=== PATIENT | male | born 1955 | race Caucasian/White ===

== ENCOUNTER → 2017-10-07 10:24 | Outpatient (CLI) | payer BC, SELFPAY ==
[2017-10-07 11:02] LABS: Absolute Neutrophil Count 4.7 X10^3/uL (2.0-7.7); Basophil# 0.05 X10^3/uL; Basophil% 0.7 % (0-1); Eosinophil# 0.09 X10^3/uL; Eosinophils% 1.2 % (0-5); Hematocrit 39.1 % (40-54); Hemoglobin 13.5 g/dl (13.0-16.5); Lymphocyte % 22.2 % (19-41); Mean Corp Hgb Conc 34.5 g/gl (32-36); Mean Corpuscular Hgb 31.5 pg (27.0-32.0); Mean Corpuscular Volume 91.1 fL (80-94); Mean Platelet Vol. 9.6 fl (6.2-12.0); Monocyte# 0.76 X10^3/uL; Monocyte% 10.5 % (0-10); Neutrophil # 4.69 X10^3/uL (2.7-7.7); Platelet Count 292 K/mm3 (150-450); RBC Distribution Width CV 12.4 % (11.6-14.6); RBC Distribution Width SD 40.5 fl (35.1-43.9); Red Blood Count 4.29 M/mm3 (4.6-6.2); White Blood Count 7.2 K/mm3 (4.4-11.0)
[2017-10-07 11:19] LABS: ALB/GLOB Ratio 1.3 RATIO (0.9-2.4); AST(SGOT) 22 U/L (15-37); Alanine Aminotransfer ALT/SGPT 39 U/L (16-61); Albumin, Serum 4.1 g/dL (3.2-5.0); Alkaline Phosphatase 69 U/L (45-117); Anion Gap 9 (5-15); BUN 16 mg/dL (7-18); BUN/Creat Ratio 13.6 RATIO (10-20); Calcium,Total 8.8 mg/dL (8.5-10.1); Chloride 97 mmol/L (98-107); Cholesterol 176 mg/dL (200); Creatinine, Serum 1.18 mg/dL (0.70-1.30); EST Glomerular Filtration Rate 66 mL/min (>60); Est Glom Filt Rate - Afr Amer 80 mL/min (>60); Globulin 3.1 g/dL (2.2-4.2); Glucose 96 mg/dL (74-106); High Density Lipoprotein 55 mg/dL; PSA,Total - Annual Screen 0.88 ng/mL (0.00-4.00); Potassium 4.3 mmol/L (3.5-5.1); Protein, Total 7.2 g/dL (6.4-8.2); Sodium Level 134 mmol/L (136-145); Triglycerides 55 mg/dL; Very Low Density Lipoprotein 11 mg/dL (5-40)
[2017-10-08 10:25] LABS: Vitamin D,25 Hydroxy 41.9 ng/mL (19.95-100.01)
== END ==
PROVIDERS: Family Provider Family Medicine; PCP Family Medicine; Visit Provider Family Medicine
DX: Z00.00 Encounter for general adult medical examination without abnormal findings (principal); E55.9 Vitamin D deficiency, unspecified; E78.5 Hyperlipidemia, unspecified; I10 Essential (primary) hypertension; Z12.5 Encounter for screening for malignant neoplasm of prostate
CPT/HCPCS: 80053; 80061; 82306; 84153; 85025; G0103

== ENCOUNTER → 2017-11-12 07:44 | Outpatient (CLI) | payer BC, SELFPAY ==
[2017-11-12 08:23] LABS: Absolute Lymphocyte Count 1.77 X10^3/ul (0.83-4.51); Absolute Neutrophil Count 3.4 X10^3/uL (2.0-7.7); Basophil# 0.03 X10^3/uL; Basophil% 0.5 % (0-1); Eosinophil# 0.21 X10^3/uL; Eosinophils% 3.5 % (0-5); Hemoglobin 13.6 g/dl (13.0-16.5); Lymphocyte # 1.77 X10^3/ul (4.0); Lymphocyte % 29.4 % (19-41); Mean Corpuscular Hgb 30.7 pg (27.0-32.0); Mean Corpuscular Volume 90.3 fL (80-94); Mean Platelet Vol. 8.8 fl (6.2-12.0); Monocyte# 0.63 X10^3/uL; Monocyte% 10.4 % (0-10); Neutrophil # 3.35 X10^3/uL (2.7-7.7); Neutrophil % 55.5 % (47-70); Platelet Count 297 K/mm3 (150-450); RBC Distribution Width CV 12.5 % (11.6-14.6); RBC Distribution Width SD 41.1 fl (35.1-43.9); Red Blood Count 4.43 M/mm3 (4.6-6.2)
[2017-11-12 08:25] LABS: POSITIVE COUNT NO; POSITIVE DIFFERENTIAL NO; POSITIVE MORPHOLOGY NO
[2017-11-12 08:34] LABS: D-Dimer Quantitative (DVT/PE) 0.33 FEU/ug/m (0.27-0.49)
[2017-11-12 08:52] LABS: ALB/GLOB Ratio 1.1 RATIO (0.9-2.4); AST(SGOT) 30 U/L (15-37); Alanine Aminotransfer ALT/SGPT 40 U/L (16-61); Albumin, Serum 3.8 g/dL (3.2-5.0); Alkaline Phosphatase 70 U/L (45-117); Anion Gap 9 (5-15); BUN 10 mg/dL (7-18); BUN/Creat Ratio 9.6 RATIO (10-20); CPK Total, Creatine Kinase 222 U/L (39-308); Calcium,Total 8.8 mg/dL (8.5-10.1); Chloride 101 mmol/L (98-107); Creatinine, Serum 1.04 mg/dL (0.70-1.30); EST Glomerular Filtration Rate 77 mL/min (>60); Est Glom Filt Rate - Afr Amer 93 mL/min (>60); Globulin 3.4 g/dL (2.2-4.2); Glucose 107 mg/dL (74-106); Protein, Total 7.2 g/dL (6.4-8.2); Sodium Level 137 mmol/L (136-145)
[2017-11-12 10:38] LABS: BNP,B-Type NATRIURETIC PEPTIDE 19.8 pg/mL (0-100)
== END ==
PROVIDERS: Family Provider Family Medicine; PCP Family Medicine; Visit Provider Family Medicine
DX: M79.1 Myalgia (principal); R53.83 Other fatigue; R06.09 Other forms of dyspnea; R60.0 Localized edema
CPT/HCPCS: 36415; 80053; 82550; 83880; 84484; 85025; 85379

== ENCOUNTER → 2017-12-06 12:19 | Outpatient (CLI) | payer BC, SELFPAY ==
--- NOTE | 2017-12-06 12:25 | STEWCON_ITS ---
Reason For Study: Fatigue, Dyspnea On Exertion Stress Results Protocol: Kade Protocol Maximum Predicted HR: 157 bpm Target HR: 133 bpm% Max imum Predicted HR: 104 % DurationHeart Rate Stage (mm:ss) (bpm) BPCom ment Baseline 76 124/80 Definity 3 ML Diluted Given; No Chest Pain Kade Protocol Stage I 3:00 12 2 148/78No Chest Pain, Mild To Moderate Dyspnea Kade Protocol Stage II 3:00 16 4 160/72No Chest Pain; Moderate Dyspnea Recovery 106 128/8 2No Chest Pain, No Dyspnea Stress Duration: 6:00 mm:ss Maximum Stress HR: 164 bpmM ETS: 7 Baseline Echocardiogram Findings Stress Echo Wall motion Data Resting WMIntermediate WMStress WM Resting Wall Motion Wall Motion Stress No regional wall motion No regional wall motion abnormalities noted. abnormalities noted. Ejection Fraction 55 %. Ejection Fraction 65 %. Stress Results The patient exhibited dyspnea during exercise. Normal blood pressure response to exercise. Exercise was stopped due to fatigue. EKG Data Baseline ECG demonstrates normal sinus rhythm with a rate of 78 beats per minute. Normal intervals are noted. The resting blood pressure was 124/80. The baseline ECG demonstrates normal sinus rhythm with at rate of _ beats per minute. The patient exercised according to the regular Kade protocol for a total duration of 6 mnutes. The maximum heart rate attained was 164 beats per minute. This was 104% of maximum predicted heart rate. The patient exercised into stage 2 of the Kade protocol. During stress, there were no ST or T wave changes noted to suggest ischemia. At peak exercise, upsloping ST changes only were noted, which did not meet the criteria for ischemia. The peak blood pressure was 160/72. No arrhythmias noted. Interpretation Summary Normal resting LV systolic function. Nonstenotic valves. With stress, the LV size decreased and all segments augmented normally. The LVEF increased from 55% to 65%. Negative for ischemia at 104% of MPHR and at 7 METS. Normal stress echo with contrast at moderate workload. Ordering Physician: Jarrod Elizabeth Referring Physician: Lionel Holm MD Performed By: Lori Sanchez RDCS
== END ==
PROVIDERS: Family Provider Family Medicine; PCP Family Medicine; Visit Provider Family Medicine
DX: I10 Essential (primary) hypertension (principal); R06.09 Other forms of dyspnea; R53.83 Other fatigue
CPT/HCPCS: 93017; 93350; Q9957; A4216; C8928

== ENCOUNTER 2017-12-24 06:25 | Day surgery (SDC) | payer BC, SELFPAY ==
[2017-12-24] VITALS (7 sets, daily range): BP systolic 99–137; BP diastolic 64–85; PULSE 68–88; RESP 16; TEMP 36.2–36.8; O2SAT 92–95; BMI 30.8
--- NOTE | 2017-12-24 | COLBX_PTH ---
PATIENT: ROSSANA BERUMEN LOC: EN U#:[id number] AGE/SX: 62/M ROOM: RE12/24/[address]: Dr. Daryl Delgado MD : 1955 BED: DIS: 12/24/2017 SPEC #: [id number] RECD: 12/24/17 14:46 STATUS: HERBERT MARC #: [id number] JESSIE: 12/24/17 00:[address]: Daryl Delgado DEPT: SURGICAL PATHOLOGY RECD BY: Tone Loo ENTERED: 12/24/17 14:47 SP TYPE: COLON BX OTHR DR: Dr. Jarrod Elizabeth, Tissues: A - Ascending colon B - Descending colon Procedures: Surgery Specimen Level IV HEADER OPERATION: Colonoscopy PRE-OP DIAGNOSIS: Screening TISSUE SUBMITTED: A ? Ascending colon biopsy, mucosal fullness, B ? Descending colon polyp MICROSCOPIC DIAGNOSIS A. Ascending colon biopsy, mucosal fullness, biopsy: Fragment of colonic mucosa with a few pigment-laden macrophages suggestive of melanosis coli. B. Descending colon polyp, biopsy: Hyperplastic polyp. Mild increase of submucosal mature adipose tissue suggestive of submucosal lipoma. TANVIR:sonali 12/27/17 MICROSCOPIC DESCRIPTION Slides are reviewed. GROSS DESCRIPTION A - Received in fixative is one container labeled with the patient's name and designated ascending colon biopsy. The specimen consists of a piece of mcgrath soft tissue measuring 0.3 x 0.3 x 0.1 cm. The specimen is totally submitted in one cassette. B - Received in fixative is one container labeled with the patient's name and designated descending colon polyp. The specimen consists of one irregular fragment of light mcgrath soft tissue that measures 0.3 x 0.3 x 0.1 cm. The specimen is totally submitted in one cassette. / TANVIR:sonali 12/24/17 TC:5 CPT: 47460 x2
--- NOTE | 2017-12-24 07:38 | PCM.HP.STD ---
Problem List (1) Screening for intestinal cancer Status: Acute History of Present Illness Date of Admission: 12/24/17 The patient is a 62 year old M who presents today for a screening colonoscopy. His previous one was 12 years ago. He denies personal or family history of colon cancer. Just 10 days ago he had some hemorrhoidal discomfort bleeding. This is not typical for him. He otherwise enjoys good health. He denies abdominal pain. No unexpected weight loss. Past Medical History Allergies Tavxdak-Myx-Sxm Reductase Inhibitor Adverse Reaction (Verified 12/17/17 16:13) Pain in joints Home Medications: Ambulatory Orders Medication Instructions Recorded Atorvastatin Calcium [Lipitor] 20 mg PO QHS 09/18/13 Hydrochlorothiazide 25 mg PO DAILY 09/18/13 Irbesartan [Avapro] 300 mg PO DAILY 09/18/13 Aspirin E.C. [Ecotrin] 325 mg PO BIDCM #60 tablet 09/20/13 Cholecalciferol (Vitamin D3) 1,000 unit PO DAILY 12/17/17 [Vitamin D3] Etodolac [Lodine Xl] 400 mg PO BID 12/17/17 Ubidecarenone [Coq10] 50 mg PO DAILY 12/17/17 Smoking Status: Former smoker Review of Systems Constitutional: Denies: Weight Change Eyes: Denies: Blurred vision, Vision Change HEENT: Denies: Ear Pain, Eye Pain Cardiovascular: Denies: Chest Pain, Claudication Respiratory: Denies: Cough, Shortness of Breath Gastrointestinal: Denies: Hematemesis, Hematochezia Genitourinary: Denies: Dysuria, Hematuria Musculoskeletal: Denies: Leg Pain Skin: Denies: Jaundice Neurological: Denies: Confusion Psychiatric: Denies: Depression Endocrine: Denies: Change in Body Habitus Hematologic/ Lymphatic: Denies: Easy Bleeding VTE Information - Inpt Only VTE Present on Admission: No Patient Problems: Active and Suspected Problems Screening for intestinal cancer (Acute) - Physical Exam General: Alert, Oriented x3, Cooperative, No apparent distress HEENT: Atraumatic Oral: Moist Mucosa Neck: Supple Lungs: Clear to auscultation Cardiovascular: Regular rate, Regular Rhythm Abdomen: Bowel Sounds Present Extremities: No clubbing Skin: No rashes Musculoskeletal: No Tenderness to Palpation of Joints or Extremities Lymphatic: No Cervical, Supraclavicular, or Inguinal Adenopathy Neurological: Cranial nerves II-XII grossly intact Psych/Mental Status: Normal Affect Vital Signs Temp Pulse Resp BP 97.3 F L 88 16 137/85 H 12/24/17 07:14 12/24/17 07:14 12/24/17 07:14 12/24/17 07:14 Oxygen Delivery Method Room Air Weight: 227 lb 1.218 oz Body Mass Index (BMI) 30.8 Assessment/Plan Active and Suspected Problems Screening for intestinal cancer (Acute) Recommending a screening colonoscopy with possible biopsy or polypectomy is indicated. He is aware of the technique, benefits, risks, alternatives. He has had an opportunity to ask and have questions answered. Careful inspection of the anal area for his recent history of hemorrhoid problems will be pursued. Daryl Delgado M.D., F.A.C.S.
--- NOTE | 2017-12-24 08:22 | PCM.OPRPT ---
Problem List (1) Screening for intestinal cancer Status: Acute Report of Operation Date of Procedure: 12/24/17 Pre-Operative Diagnosis: Screening for intestinal cancer Post-Operative Diagnosis: Mucosal congestion of the ascending colon. Sessile polyp of the descending colon. Extensive descending and sigmoid diverticulosis. Tortuous elongated colon Surgery/Procedure Performed:: Colonoscopy with cold forcep biopsy and hot snare polypectomy Description of Surgical Findings:: Timeout and informed consent was obtained. The patient was taken to the endoscopy suite. He was placed in a left lateral decubitus position. Throughout the procedure in aliquots he received a total of 150 mg Demerol and 5 mg of Versed is intravenous sedation. As noted the patient complained of some hemorrhoidal problems. On the right lateral aspect of the anorectal area has a thrombosed conglomerative hemorrhoid. No active bleeding. 2+ smooth prostate. The flexible colonoscope inserted the rectum advanced to a very elongated tortuous sigmoid and descending colon. Tediously the scope was advanced to the transverse colon. The patient had to be placed supine and with transabdominal pressure the scope was gradually advanced to the cecum. The cecum ileocecal valve was just achieved. I felt that I got adequate visualization of the base of the cecum. Access was indeed difficult. The patient was placed back in a left lateral decubitus position the scope was carefully withdrawn there was some slight mucosal fullness on the medial aspect of the ascending colon just distal to the ileocecal valve. Photograph was obtained. Cold forcep was used to biopsy this area. The scope was then further withdrawn from the ascending transverse colon. And what was felt to be the proximal descending colon at 70 cm there is a sessile 8 mm diameter polyp. Photographs were obtained. Hot snare cautery was used to resect and retrieved. 2 hemostatic clips were placed. The scope was further withdrawn and there was extensive diverticulosis of the descending and sigmoid colon making visualization the mucosa challenging. The scope was withdrawn to the rectum retroflexed some internal hemorrhoids noted. Excess fluid and air was aspirated free the procedure was completed with the patient tolerating it well. Impression Mucosal fullness of the ascending colon pathology pending likely benign. Sessile polyp in the descending colon pathology pending Extensive sigmoid and descending diverticulosis with markedly elongated colon Thrombosed right lateral external hemorrhoid Patient will be notified of pathology results as they become available. He can seek ongoing surgical treatment of his thrombosed hemorrhoid pending his progress. Next colonoscopy recommended in 3 years pending pathology. Previous colonoscopies approximately 12 years prior. Next colonoscopy might be advantaged under monitored anesthesia care. Medications were given at 0743. Scope inserted 0746. Cecum reached at 0806. Procedure was completed at 0819. Cc: Dr. Glenn Delgado M.D., F.A.C.S. Type of Anesthesia:: IV Sedation
--- NOTE | 2017-12-24 09:25 | SUR.PHASEII ---
PT DISCUSSED POSSIBILITY OF TAKING CARE OF HEMRRHOID WITH DR. BASHIR IN THE RECOVERY ROOM. DR. KOROMA WOULD BE THE ONE TO TAKE CARE OF IT KRYSTEN IS LEAVING FOR VACATION. PT DISCUSSED OPTIONS WITH SIGNIFICANT OTHER AND HAS DECIDED THAT HE WILL WAIT AND SEE HOW HE FEELS OVER THE WEEKEND AND WILL CALL THE OFFICE NEXT WEEK, IF NEEDED. PT AGREES THAT HE IS WANTING TO GO HOME TODAY AND IS READY TO LEAVE NOW.
== END 2017-12-24 09:30 | disposition home or self-care (01) ==
LOC: EN 06:26 → AC 06:27
PROVIDERS: Family Provider Family Medicine; PCP Family Medicine; Visit Provider Surgery
PROC: 0DJD8ZZ Inspection of Lower Intestinal Tract, Via Natural or Artificial Opening Endoscopic (ICD-10-PCS; CPT 45378; principal; 2017-12-24 07:25)
DX: Z12.11 Encounter for screening for malignant neoplasm of colon (principal); K63.5 Polyp of colon; K57.30 Diverticulosis of large intestine without perforation or abscess without bleeding; K63.89 Other specified diseases of intestine; K64.5 Perianal venous thrombosis; Z79.82 Long term (current) use of aspirin; Z79.899 Other long term (current) drug therapy; Z87.891 Personal history of nicotine dependence
CPT/HCPCS: 45380; 88305; 99152; 99153; J7120

== ENCOUNTER → 2018-02-17 09:36 | Outpatient (CLI) | payer BC, SELFPAY ==
[2018-02-17 12:20] LABS: Color, Urine Yellow (Yellow); Glucose, Dipstick Normal (Normal); Ketone-Dipstick 5 mg/dl (Negative); Leukocyte Esterase-Dipstick 25 /ul (Negative); Nitrite-Dipstick Negative (Negative); Occult Blood-Urine Negative /ul (Negative); Protein-Dipstick 15 mg/dl (Negative); Urine Bilirubin Dipstick 6 mg/dL (Negative); Urine Clarity Clear (Clear); Urine Urobilinogen 1 mg/dl (Normal)
[2018-02-17 12:45] LABS: Absolute Lymphocyte Count 1.46 X10^3/ul (0.83-4.51); Absolute Neutrophil Count 3.1 X10^3/uL (2.0-7.7); Basophil# 0.05 X10^3/uL; Basophil% 0.9 % (0-1); Eosinophil# 0.11 X10^3/uL; Hemoglobin 14.6 g/dl (13.0-16.5); Lymphocyte # 1.46 X10^3/ul (4.0); Lymphocyte % 26.7 % (19-41); Mean Corp Hgb Conc 34.8 g/gl (32-36); Mean Corpuscular Hgb 31.9 pg (27.0-32.0); Mean Corpuscular Volume 91.7 fL (80-94); Mean Platelet Vol. 9.5 fl (6.2-12.0); Monocyte# 0.73 X10^3/uL; Monocyte% 13.3 % (0-10); Neutrophil # 3.08 X10^3/uL (2.7-7.7); Neutrophil % 56.4 % (47-70); Platelet Count 312 K/mm3 (150-450); RBC Distribution Width CV 12.4 % (11.6-14.6); RBC Distribution Width SD 41.1 fl (35.1-43.9); Red Blood Count 4.58 M/mm3 (4.6-6.2); White Blood Count 5.5 K/mm3 (4.4-11.0)
[2018-02-17 12:49] LABS: POSITIVE COUNT NO; POSITIVE DIFFERENTIAL NO; POSITIVE MORPHOLOGY NO
[2018-02-17 13:04] LABS: ALB/GLOB Ratio 1.2 RATIO (0.9-2.4); AST(SGOT) 31 U/L (15-37); Alanine Aminotransfer ALT/SGPT 40 U/L (16-61); Albumin, Serum 4.3 g/dL (3.2-5.0); Alkaline Phosphatase 75 U/L (45-117); Anion Gap 7 (5-15); BUN 14 mg/dL (7-18); Calcium,Total 9.1 mg/dL (8.5-10.1); Chloride 103 mmol/L (98-107); Creatinine, Serum 1.27 mg/dL (0.70-1.30); EST Glomerular Filtration Rate 61 mL/min (>60); Est Glom Filt Rate - Afr Amer 74 mL/min (>60); Globulin 3.6 g/dL (2.2-4.2); Glucose 98 mg/dL (74-106); Potassium 4.2 mmol/L (3.5-5.1); Protein, Total 7.9 g/dL (6.4-8.2); Sodium Level 139 mmol/L (136-145); Thyroid Stim Hormone (TSH) 0.99 uIU/mL (0.358-3.74)
[2018-02-18 14:34] LABS: ANTINUCLEAR ANTIBODIES DIRECT Negative (Negative)
== END ==
PROVIDERS: Family Provider Family Medicine; PCP Family Medicine; Visit Provider Family Medicine
DX: I10 Essential (primary) hypertension (principal); R60.0 Localized edema; R63.4 Abnormal weight loss
CPT/HCPCS: 36415; 80053; 81002; 84443; 85025; 85379; 86038; 86225; 86235

== ENCOUNTER → 2018-11-16 12:19 | Outpatient (CLI) | payer BC, SELFPAY ==
[2018-11-16 12:36] LABS: Bacteria 0 SEEN /hpf (None Seen); Mucous, Urine 0 SEEN /hpf (<or=2+); Red Blood Cells-Urine 0 SEEN /hpf (0-5); Squamous Epithelial Cells - UA 0 SEEN /hpf (0-5); White Blood Cells 0 SEEN /hpf (0-5)
[2018-11-16 13:36] LABS: Color, Urine Yellow (Yellow); Glucose, Dipstick Normal (Normal); Ketone-Dipstick Negative (Negative); Leukocyte Esterase-Dipstick Negative /ul (Negative); Nitrite-Dipstick Negative (Negative); Occult Blood-Urine Negative /ul (Negative); Protein-Dipstick Negative (Negative); Specific Gravity, Urine 1.015 (1.002-1.030); Urine Bilirubin Dipstick Negative (Negative); Urine Clarity Clear (Clear); Urine Urobilinogen Normal (Normal)
[2018-11-16 13:37] LABS: Hematocrit 40.6 % (40-54); Hemoglobin 13.6 g/dl (13.0-16.5); Mean Corp Hgb Conc 33.5 g/gl (32-36); Mean Corpuscular Hgb 30.9 pg (27.0-32.0); Mean Corpuscular Volume 92.3 fL (80-94); Mean Platelet Vol. 9.3 fl (6.2-12.0); Platelet Count 276 K/mm3 (150-450); RBC Distribution Width CV 12.4 % (11.6-14.6); White Blood Count 6.2 K/mm3 (4.4-11.0)
[2018-11-16 13:38] LABS: Scan Indicated on CBC? Y/N NO
[2018-11-16 14:00] LABS: Microalbumin,Random Urine < 5.0 mg/L (NO RANGE EST.)
[2018-11-16 14:02] LABS: Anion Gap 9 (5-15); BUN 13 mg/dL (7-18); BUN/Creat Ratio 12.1 RATIO (10-20); Chloride 101 mmol/L (98-107); Cholesterol 182 mg/dL (200); Creatinine, Serum 1.07 mg/dL (0.70-1.30); EST Glomerular Filtration Rate 74 mL/min (>60); Est Glom Filt Rate - Afr Amer 89 mL/min (>60); Glucose 106 mg/dL (74-106); High Density Lipoprotein 56 mg/dL; PSA,Total - Annual Screen 0.75 ng/mL (0.00-4.00); Potassium 3.7 mmol/L (3.5-5.1); Sodium Level 137 mmol/L (136-145); Triglycerides 51 mg/dL; Very Low Density Lipoprotein 10 mg/dL (5-40)
== END ==
LOC: LAB.FUTURE 08-02 06:11 → BFHLAB 09-19 14:06
PROVIDERS: Family Provider Family Medicine; PCP Family Medicine; Referring Provider Family Medicine; Visit Provider Family Medicine
DX: Z01.818 Encounter for other preprocedural examination (principal); I10 Essential (primary) hypertension; R80.9 Proteinuria, unspecified; Z12.5 Encounter for screening for malignant neoplasm of prostate
CPT/HCPCS: 36415; 80048; 80061; 81001; 82043; 82570; 84153; 85027; G0103

== ENCOUNTER → 2020-06-17 08:42 | Outpatient (CLI) | payer BC, SELFPAY ==
[2020-06-17 12:47] LABS: Absolute Lymphocyte Count 1.68 X10^3/uL (0.83-4.51); Absolute Neutrophil Count 3.5 X10^3/uL (2.0-7.7); Basophil# 0.06 X10^3/uL; Eosinophil# 0.08 X10^3/uL; Eosinophils% 1.3 % (0-5); Hematocrit 41.5 % (40-54); Lymphocyte # 1.68 X10^3/ul (4.0); Lymphocyte % 27.7 % (19-41); Mean Corp Hgb Conc 33.7 g/dL (32-36); Mean Corpuscular Hgb 31.8 pg (27.0-32.0); Mean Corpuscular Volume 94.3 fL (80-94); Mean Platelet Vol. 9.3 fl (6.2-12.0); Monocyte# 0.67 X10^3/uL; Monocyte% 11.1 % (0-10); NRBC Flagged by Analyzer 0 % (0-5); Neutrophil % 57.7 % (47-70); Platelet Count 351 K/mm3 (150-450); RBC Distribution Width CV 12.1 % (11.6-14.6); RBC Distribution Width SD 42.2 fl (35.1-43.9); White Blood Count 6.1 K/mm3 (4.4-11.0)
[2020-06-17 12:58] LABS: ALB/GLOB Ratio 1.1 RATIO (0.9-2.4); AST(SGOT) 32 U/L (15-37); Alanine Aminotransfer ALT/SGPT 44 U/L (16-61); Albumin, Serum 3.9 g/dL (3.2-5.0); Alkaline Phosphatase 72 U/L (45-117); Anion Gap 7 (5-15); BUN 13 mg/dL (7-18); BUN/Creat Ratio 11.5 RATIO (10-20); Calcium,Total 8.9 mg/dL (8.5-10.1); Chloride 104 mmol/L (98-107); Cholesterol 154 mg/dL (200); Creatinine, Serum 1.13 mg/dL (0.70-1.30); EST Glomerular Filtration Rate 69 mL/min (>60); Est Glom Filt Rate - Afr Amer 84 mL/min (>60); Globulin 3.5 g/dL (2.2-4.2); Glucose 88 mg/dL (74-106); High Density Lipoprotein 61 mg/dL; PSA,Total - Annual Screen 1.08 ng/mL (0.00-4.00); Potassium 3.9 mmol/L (3.5-5.1); Protein, Total 7.4 g/dL (6.4-8.2); Sodium Level 137 mmol/L (136-145); Thyroid Stim Hormone (TSH) 1.05 uIU/mL (0.358-3.74); Triglycerides 44 mg/dL; Very Low Density Lipoprotein 9 mg/dL (5-40)
[2020-06-17 13:06] LABS: Microalbumin,Random Urine 7.5 mg/L (NO RANGE EST.); Microalbumin:Creatinine Ratio 4.8 mg/g CRE (<30 mg/g CRE)
== END ==
PROVIDERS: Family Provider Family Medicine; PCP Family Medicine; Visit Provider Family Medicine
DX: I10 Essential (primary) hypertension (principal); R41.3 Other amnesia; E78.5 Hyperlipidemia, unspecified; Z12.5 Encounter for screening for malignant neoplasm of prostate; Z51.81 Encounter for therapeutic drug level monitoring
CPT/HCPCS: 36415; 80053; 80061; 82043; 82570; 84153; 84443; 85025; G0103

== ENCOUNTER 2021-02-06 17:12 | Observation (INO) | payer OTHER, SELFPAY ==
[2021-01-20 15:20] LABS: Hematocrit 40.5 % (40-54); Hemoglobin 13.9 g/dL (13.0-16.5); Mean Corp Hgb Conc 34.3 g/dL (32-36); Mean Corpuscular Hgb 31.4 pg (27.0-32.0); Mean Corpuscular Volume 91.4 fL (80-94); Mean Platelet Vol. 9.3 fl (6.2-12.0); Platelet Count 344 K/mm3 (150-450); RBC Distribution Width CV 11.9 % (11.6-14.6); RBC Distribution Width SD 39.8 fl (35.1-43.9); Red Blood Count 4.43 M/mm3 (4.6-6.2); White Blood Count 6.4 K/mm3 (4.4-11.0)
[2021-01-20 15:31] LABS: Prothrombin Time (Protime)PT. 12.7 SECONDS (11.7-14.9)
[2021-01-20 15:32] LABS: Partial Thromboplast Time 27.2 Seconds (24.1-36.2)
[2021-01-20 16:16] LABS: AST(SGOT) 29 U/L (15-37); Alanine Aminotransfer ALT/SGPT 46 U/L (16-61); Albumin, Serum 3.9 g/dL (3.2-5.0); Alkaline Phosphatase 76 U/L (45-117); Anion Gap 10 (5-15); BUN 16 mg/dL (7-18); BUN/Creat Ratio 13.3 RATIO (10-20); Calcium,Total 9.1 mg/dL (8.5-10.1); Chloride 103 mmol/L (98-107); EST Glomerular Filtration Rate 64 mL/min (>60); Est Glom Filt Rate - Afr Amer 78 mL/min (>60); Globulin 3.4 g/dL (2.2-4.2); Glucose 103 mg/dL (74-106); Potassium 3.9 mmol/L (3.5-5.1); Protein, Total 7.3 g/dL (6.4-8.2); Sodium Level 138 mmol/L (136-145)
[2021-01-20 19:06] LABS: Hemoglobin A1c 5.6 % (3.8-5.6)
--- NOTE | 2021-02-05 08:35 | RAD_ITS ---
HISTORY: PREOP EXAMINATION/TECHNIQUE: XR Chest 2 Views: 2 views COMPARISON: None FINDINGS: LINES/DEVICES: None. LUNGS: No pulmonary consolidation, mass, or edema. No pleural effusion or pneumothorax. MEDIASTINUM AND CARDIOVASCULAR STRUCTURES: Cardiac silhouette not enlarged. Central airways and mediastinal contour are unremarkable. BONES AND SOFT TISSUES: No acute bony abnormalities. RAD/Chest PA and Lateral IMPRESSION: No radiographic evidence of acute cardiopulmonary disease. at 1515 Reported and signed by: Liu Gibson MD Electronically Signed: Liu Gibson MD at 15:14 EDT Tel , Service support ,
[2021-02-06] VITALS (12 sets, daily range): BP systolic 120–146; BP diastolic 56–89; PULSE 65–105; RESP 16–18; TEMP 36.2–37; O2SAT 93–99; BMI 31.9
[2021-02-06] MEDS: Lactated Ringers 1,000 ML 100 ML IV ×4 (10:50→17:37)
--- NOTE | 2021-02-06 11:52 | PCM.OPRPT ---
Problems Associated Problem List Diagnoses (1) Lumbar disc disease with radiculopathy: (2) Lumbar spondylosis: Report of Operation Date of Procedure: 02/06/21 Pre-Operative Diagnosis: 1. Lumbar stenosis, L3-4, L4-5 with spondylosis. 2. Lumbar degenerative disc disease, L3-4, L4-5 Post-Operative Diagnosis: 1. Lumbar stenosis, L3-4, L4-5 with spondylosis. 2. Lumbar degenerative disc disease, L3-4, L4-5 Surgery/Procedure Performed:: 1. L3 bilateral laminectomies, foraminotomies, decompression of bilateral L3 nerve roots. 2. L4 bilateral laminectomies, foraminotomies, decompression of bilateral L4 nerve roots. Description of Surgical Findings:: STATEMENT OF MEDICAL NECESSITY: The patient is a 65-year-old male with intractable back and leg pain. Image studies confirm above diagnosis. He has failed conservative treatment to include: medicine, therapy, and injections. The patient opted for operative intervention, understanding the risks to include, but not limited to infection, bleeding, damage to nerves, arteries, and veins, possibility of spinal fluid leak, continued pain, need for further surgery, deep vein thrombosis, pulmonary embolism, heart attack, risk of stroke, or . DESCRIPTION OF PROCEDURE: The patient was identified in the preop holding area. The patient's identity and surgery site were confirmed by the patient, staff, anesthesia and the surgeon. The patient was wheeled to the operative suite and given the appropriate amount of sedation by anesthesia. He received preoperative antibiotics, Ancef. The patient was transferred to the [place] operating table in the prone position. All bony prominences were padded accordingly. The lumbar spine was prepped and draped in standard surgical fashion. Juan huggers were not turned on until drapes were placed and sealed with Ioban. A Midline incision was made and taken down to the lumbodorsal fascia. This was divided and subperiosteal dissection taken down to the level of facet joints at L3-4 and L4-5 bilaterally. Deep retractors were placed. I began with the Misonix bone scalpel, then a series of rongeurs and Kerrisons removing the spinous process and lamina at L3, and L4. Then, foraminotomies were performed decompressing bilateral the L3 and L4 nerve roots. The incision was then thoroughly irrigated. Tissel was placed over the dura as a hemostatic agent. Fascia was closed with #1 Vicryl, subcutaneous with 2-0 Vicryl, and skin with 2-0 nylon. Sterile dressing was applied with 4 x 4, ABD, and tape. Sponge, instrument, and needle counts were correct at the end of the case. The patient was extubated, taken to PACU without incident. CORTNEY Prabhakar was present for the entirety of the case and necessary for crucial parts of the case including retracting and closure. Surgeon: Juan Antonio Irving lance crewmember/mlrs sergeant: Jacquie Garcia Type of Anesthesia: General Specimen's removed: None Drains: None Estimated Blood Loss (mL): 100 Fluids Replaced: 1800 Complications None Admit VTE Documentation VTE Present on Admission: No VTE Mechan Device Prophylaxis: SCD's
--- NOTE | 2021-02-06 11:52 | PCM.PN.ORT ---
Subjective Subjective The patient was seen and examined postoperatively in the PACU. He is resting comfortably. His pain is well controlled. He has no complaints. Objective Data Objective Data Vital Signs: Vital Signs Temp Pulse Resp BP Pulse Ox 98.1 F 65 16 146/89 H 94 02/06/21 11:10 02/06/21 11:10 02/06/21 11:10 02/06/21 11:10 02/06/21 11:10 Oxygen Delivery Method Room Air Weight: 235 lb 10.786 oz Body Mass Index (BMI) 31.9 Lab / Micro Data Result Diagrams: 01/20/21 14:04 01/20/21 14:04 Micro: Microbiology 02/05/21 08:35 Interface Orders SARS-CoV-2 Antigen (Rapid) - Final Radiography Diagnostic Testing: Radiology Impression Chest X-Ray 02/05/21 08:35 IMPRESSION: No radiographic evidence of acute cardiopulmonary disease. at 1515 Reported and signed by: Liu Gibson MD Electronically Signed: Liu Gibson MD at 15:14 EDT Tel , Service support , Physical Exam Const alert, oriented x3 and no apparent distress General Appearance: cooperative and comfortable HEENT normocephalic and head/scalp atraumatic Eyes EOMs intact bilaterally and conjunctivae normal Neck full ROM General: normal visual inspection Chest inspection of chest normal Resp normal respiratory effort and normal air movement Cardio regular rate and regular rhythm Peripheral Pulses: pulses 2+ throughout GI soft to palpation, non-tender and non-distended Back/Spine Back/Spine Narrative: Dressing clean dry and intact Extremity normal to inspection, normal capillary refill, no clubbing, cyanosis or edema and no calf tenderness Peripheral Pulses: Yes pulses 2+ throughout Skin no rashes or lesions noted General Skin Exam: no breakdown Neuro oriented x3, CN's II-XII intact bilaterally, moves all extremities, no focal motor deficits, no sensory deficits noted and deep tendon reflexes 2+ bilaterally Motor Exam: strength 5/5 throughout and muscle tone normal throughout Assessment & Plan Assessment/Plan (1) Lumbar spondylosis: PLAN: Okay to admit to floor Telemetry for 24 hours Hospitalist consulted for medical management See orders (2) Lumbar disc disease with radiculopathy:
--- NOTE | 2021-02-06 11:52 | PCM.DC.SUM ---
Providers Date of Admission: 02/06/21 Primary Care Physician: Dr. Jarrod Elizabeth DO Reason For Visit: LAMINECTOMY L3-4 DECOMPRESSION Diagnosis Discharge Diagnosis (1) Lumbar spondylosis: Status: Acute Code(s): M47.816 - Spondylosis without myelopathy or radiculopathy, lumbar region (2) Lumbar disc disease with radiculopathy: Status: Acute Code(s): M51.16 - Intervertebral disc disorders with radiculopathy, lumbar region Medications at Discharge Home Medications atorvastatin 20 mg PO QHS 09/18/13 hydrochlorothiazide 25 mg PO DAILY 09/18/13 irbesartan [Avapro] 300 mg PO DAILY 09/18/13 cholecalciferol (vitamin D3) [Vitamin D3] 1,000 unit PO DAILY 12/17/17 etodolac 400 mg PO BID 12/17/17 aspirin [Aspir-81] 81 mg PO DAILY 01/20/21 Hospital Course Operations - (L3, L4 laminectomy decompression) Summary of Care Provided Minutes Spent on Discharge: 15 Hospital Course: The patient underwent an L3 and L4 laminectomy decompression on 02/06/2021. He was subsequently admitted to the medical surgical floor. The hospitalist was consulted for medical management. His pain was well controlled and he progressed well with physical therapy and mobilization. No significant medical issues were reported. He was discharged home on 02/07/2021 to follow-up with Dr. Irving in 3 weeks for suture removal. Physical Exam Const alert, oriented x3 and no apparent distress General Appearance: cooperative and comfortable Orientation / Consciousness: awake, oriented to person, oriented to place and oriented to time HEENT normocephalic and head/scalp atraumatic Eyes PERRL, EOMs intact bilaterally and conjunctivae normal Neck full ROM and supple Chest inspection of chest normal Resp normal respiratory effort and normal air movement Cardio regular rate and regular rhythm Peripheral Pulses: pulses 2+ throughout GI normal to inspection, nondistended, normoactive bowel sounds, soft to palpation, non-tender and non-distended Back/Spine normal to inspection Back/Spine Narrative: Dressing clean dry and intact Extremity normal to inspection, full ROM, normal capillary refill, no clubbing, cyanosis or edema and no calf tenderness Peripheral Pulses: Yes pulses 2+ throughout Skin no rashes or lesions noted General Skin Exam: no breakdown Neuro oriented x3, CN's II-XII intact bilaterally, moves all extremities, no focal motor deficits, no sensory deficits noted and deep tendon reflexes 2+ bilaterally Motor Exam: strength 5/5 throughout and muscle tone normal throughout Weight / BMI Weight Weight: 235 lb 10.786 oz Body Mass Index (BMI) 31.9 ABG / Lab / Microbiology Data Result Diagrams: 02/07/21 06:13 02/07/21 06:13 Microbiology: Microbiology 02/05/21 08:35 SARS-CoV-2 Antigen (Rapid) - Final Interface Orders Microbiology 02/05/21 08:35 Interface Orders SARS-CoV-2 Antigen (Rapid) - Final Radiography Diagnostic Testing: Radiology Impression Chest X-Ray 02/05/21 08:35 IMPRESSION: No radiographic evidence of acute cardiopulmonary disease. at 1515 Reported and signed by: Liu Gibson MD Electronically Signed: Liu Gibson MD at 15:14 EDT Tel , Service support , D/C Instructions Discharge Diet: No restrictions Discharge Activity: - (No repetitive bending, twisting, or lifting greater than 5 pounds) Weight Bearing Status: Weight bearing as tolerated Lifting Restricted to (Lbs): 5 Call your doctor if your incision/area has: Continuous Slow Oozing, Sudden Increased Bleeding, Increased Pain/ Swelling, Increased Redness, Foul Smelling Discharge and Swelling at the incision site Call your doctor if you observe: Fever of 101 or Higher, Coldness, Increased Pain, Numbness or Tingling, Change in Color, Inability to urinate, Inability to have a bowel movement, Using more than 1 pad per hour, Shortness of breath, Dizziness, Fainting spells, Swelling in the ankles, Chest pain, Prolonged hiccupping, Increased palpitations (irregular heartbeat), Calf discomfort and Uncontrolled pain Change Dressing in: 1 day Additional Dressing/Incision Instructions: Keep dressing clean dry and intact. Change dressing daily with iodine applied to incision. Cover incision with waterproof dressing to shower cover dry Additional Instructions: Covered incision with waterproof dressing to shower Please Follow Up With: Juan Antonio Irving DO When: 3 weeks for suture removal Meaningful Use Info Meaningful Use Diagnoses (Choose all that apply): None applicable Discharge Plan Admission Admit Date/Time: 02/06/21 17:12 Primary Reason for Your Visit: Lumbar stenosis, spondylosis Attending Provider: Amari Williamson Primary Care Provider: Jarrod Elizabeth Consulting Providers: Arun Christianson Discharge Orders/Prescriptions Prescriptions: No Action atorvastatin 20 MG tablet 20 mg PO QHS RF: 0 hydrochlorothiazide 25 MG tablet 25 mg PO DAILY RF: 0 irbesartan [Avapro] 300 MG tablet 300 mg PO DAILY RF: 0 etodolac 400 MG tablet extended release 24 hr 400 mg PO BID RF: 0 cholecalciferol (vitamin D3) [Vitamin D3] 1,000 UNIT capsule 1,000 unit PO DAILY RF: 0 aspirin [Aspir-81] 81 mg Tablet,Delayed Release (Dr/Ec) 81 mg PO DAILY RF: 0 Referrals / Follow Up: Jarrod Elizabeth DO [Primary Care Provider] -
[2021-02-06] MEDS: Cefazolin 2 GM in 0.9% Normal Saline 100 ML IV (11:55)
--- NOTE | 2021-02-06 12:08 | RAD_ITS ---
STUDY: X-RAY - LUMBAR SPINE REASON FOR EXAM: Male, 65 years old. LAMINECTOMY DECOMPRESSION, L3-4 TECHNIQUE: Single lateral of the lumbar spine. COMPARISON: None FINDINGS: Intraoperative localizing image demonstrates a surgical instrument and a clip at the L3-4 level. RAD/Spine 1 View Any Level IMPRESSION: Intraoperative image as noted of the lumbar spine. Electronically Signed: Vishnu Florence DO at 16:34 EDT Tel [phone], Service support ,
[2021-02-06] MEDS: Bupivacaine 0.25% 30 ML Vial (15:08)
[2021-02-06] MEDS: Morphine 4 MG/ML Syringe IV ×2 (17:57→19:32)
[2021-02-06] MEDS: Ensure Surgery 237 ML LIQUID PO (18:00)
--- NOTE | 2021-02-06 18:03 | PN.HOSP_ITS ---
Subjective Subjective This is a 65 years old male patient underwent elective bilateral L3 and L4 laminectomies, foraminotomies and decompression of bilateral L4 and L3 nerve roots and I was asked to see this patient for postoperative medical management. Currently, patient complained of back pain, moderate, around 5-6 out of 10 in severity, manageable. No other complaints. His vital signs are stable. Objective Data Objective Data Vital Signs: Vital Signs Temp Pulse Resp BP Pulse Ox 97.9 F 95 18 128/86 H 95 02/06/21 17:12 02/06/21 17:12 02/06/21 17:12 02/06/21 17:12 02/06/21 17:12 Oxygen Flow Rate (L/min) 2 Oxygen Delivery Method Nasal Cannula Weight: 235 lb 10.786 oz Body Mass Index (BMI) 31.9 Intake & Output: Intake and Output for Last 24 Hours 02/04/21 02/05/21 02/06/21 23:59 23:59 23:59 Intake Total 2009 Output Total 350 / 350 Balance 1660 / 1660 Lab / Micro Data Result Diagrams: 01/20/21 14:04 01/20/21 14:04 Micro: Microbiology 02/05/21 08:35 Interface Orders SARS-CoV-2 Antigen (Rapid) - Final Radiography Diagnostic Testing: Radiology Impression Spine X-Ray 02/06/21 12:08 IMPRESSION: Intraoperative image as noted of the lumbar spine. Electronically Signed: Vishnu Florence DO at 16:34 EDT Tel [phone], Service support , Physical Exam Const alert, oriented x3, no apparent distress and no limitations General Appearance: cooperative HEENT normocephalic, head/scalp atraumatic, external ears normal, external nose normal and moist oral mucous membranes Eyes PERRL, EOMs intact bilaterally, conjunctivae normal and no scleral icterus General Eye: normal appearance of both eyes Neck no lymphadenopathy, supple, no meningeal signs, no JVD and no carotid bruits Lymph Lymphatic: no lymphadenopathy noted Resp normal respiratory effort, normal air movement and clear to auscultation bilaterally Auscultation: Negative for crackles, rales, rhonchi or wheezes Cardio regular rate, regular rhythm, S1 normal heart sound, S2 normal heart sound, no murmurs and no JVD GI normal to inspection, nondistended, normoactive bowel sounds, soft to palpation, non-tender and non-distended; Negative for hepatosplenomegaly Extremity normal to inspection, full ROM and no clubbing, cyanosis or edema Skin no rashes or lesions noted, no wounds and no petechiae Neuro oriented x3, CN's II-XII intact bilaterally and moves all extremities Sensorium / Orientation: alert Speech: speech normal Motor Exam: strength 5/5 throughout Psych mental status grossly normal, affect normal and denies hallucinations Assessment & Plan Assessment/Plan (1) Status post lumbar laminectomy: (2) Alcohol abuse: (3) Hyperlipidemia: (4) HTN (hypertension): PLAN: This is a 65 years old male patient underwent elective bilateral lumbar laminectomies of L3-L4 and I am seeing this patient for postoperative medical management. #1 status post bilateral L3-L4 laminectomies, foraminotomies and bilateral L3-L4 nerve root decompression: This was done for L3-L4 and L4-L5 lumbar stenosis with spondylosis, postoperative day 0. Patient is on IV cefazolin for perioperative prophylaxis. He is on IV morphine and OxyIR as needed for pain. His vital signs are stable. Preoperative blood work reviewed, unremarkable. Surgery team on the case, managing. Plan to repeat CBC and BMP tomorrow morning. #2 hypertension: Blood pressure stable, continue HCTZ. #3 hyperlipidemia: Continue statins. #4 alcohol abuse: Patient drinks 4-5 beers daily, last drink was before yesterday. Denied history of alcohol withdrawal. Plan for thiamine and folic acid supplements, monitor for withdrawal symptoms. #5 DVT prophylaxis: SCDs. This note was generated with [employer] dictation software. It may contain incorrect words, spelling, and punctuation that were not noted in checking the note before signing. Charges/Coding Visit Charges Inpatient E&M: 91653 Subs Hosp L2
[2021-02-06] MEDS: Cefazolin 1 GM/50 ML BAG IV (20:01)
[2021-02-06] MEDS: Atorvastatin Calcium 20 MG Tablet PO (21:31)
[2021-02-06] MEDS: traMADol 50 MG Tablet PO (21:31)
[2021-02-07 03:39] VITALS: BP 170/96; PULSE 81; RESP 18; TEMP 36.9; O2SAT 97
[2021-02-07] MEDS: traMADol 50 MG Tablet PO ×2 (03:44→09:44)
[2021-02-07] MEDS: Cefazolin 1 GM/50 ML BAG IV (03:45)
[2021-02-07] MEDS: 0.9% Saline Lock 10 ML Syringe IV (03:46)
[2021-02-07 06:59] LABS: Absolute Lymphocyte Count 1.35 X10^3/uL (0.83-4.51); Absolute Neutrophil Count 10.6 X10^3/uL (2.0-7.7); Basophil# 0.02 X10^3/uL; Basophil% 0.1 % (0-1); Hematocrit 33.8 % (40-54); Hemoglobin 11.5 g/dL (13.0-16.5); Lymphocyte # 1.35 X10^3/ul (0.83-4.51); Lymphocyte % 9.9 % (19-41); Mean Corpuscular Hgb 31.5 pg (27.0-32.0); Mean Corpuscular Volume 92.6 fL (80-94); Mean Platelet Vol. 9.1 fl (6.2-12.0); Monocyte# 1.51 X10^3/uL; Monocyte% 11.1 % (0-10); NRBC Flagged by Analyzer 0 % (0-5); Neutrophil # 10.61 X10^3/uL (2.7-7.7); Neutrophil % 78.3 % (47-70); POSITIVE DIFFERENTIAL YES; Platelet Count 320 K/mm3 (150-450); RBC Distribution Width CV 12.1 % (11.6-14.6); RBC Distribution Width SD 40.9 fl (35.1-43.9); Red Blood Count 3.65 M/mm3 (4.6-6.2); White Blood Count 13.6 K/mm3 (4.4-11.0)
[2021-02-07 07:01] LABS: Differential Indicated SCAN CRITERIA MET
[2021-02-07 07:19] LABS: Differential Comment SCANNED
[2021-02-07 07:28] LABS: Anion Gap 6 (5-15); BUN 11 mg/dL (7-18); BUN/Creat Ratio 10.9 RATIO (10-20); Calcium,Total 8.9 mg/dL (8.5-10.1); Chloride 101 mmol/L (98-107); Creatinine, Serum 1.01 mg/dL (0.70-1.30); EST Glomerular Filtration Rate 78 mL/min (>60); Est Glom Filt Rate - Afr Amer 95 mL/min (>60); Estimated Creatinine Clearance 78.97 ml/min; Glucose 130 mg/dL (74-106); Potassium 4.2 mmol/L (3.5-5.1); Sodium Level 135 mmol/L (136-145)
[2021-02-07] MEDS: hydroCHLOROthiazide 25 MG Tablet PO (07:35)
[2021-02-07] MEDS: Thiamine Hydrochloride 100 MG Tablet PO (07:35)
[2021-02-07] MEDS: Folic Acid 1 MG Tablet PO (07:35)
[2021-02-07] MEDS: Ensure Surgery 237 ML LIQUID PO ×2 (07:37→11:47)
[2021-02-07 08:30] VITALS: BP 145/87; PULSE 80; RESP 16; TEMP 36.4; O2SAT 97
[2021-02-07] MEDS: Cholecalciferol (VIT D3) 25 MCG TABLET (1,000 UNITS) PO (09:43)
[2021-02-07] MEDS: Losartan Potassium 100 MG Tablet PO (09:43)
[2021-02-07 10:17] LABS: Pathologist Review Reviewed
--- NOTE | 2021-02-07 10:45 | CASEMGMT ---
GERARD MURRIETA Face to Face with patient for initial transition planning/care coordination assessment. RN LIT introduced self and role at [facility]. Patient sitting in chair, alert and oriented. Patient willing to participate in assessment and is able to answer all questions appropriately. Care providers, pharmacy, and demographics verified. Patient wishes to discharge home, denies need for home health at this time. Patient states he has no further needs or concerns at this time. CM to follow for discharge planning needs that may arise. PCP: Glenn Specialists: Suyapa, woo; Irving, spinal Preferred Pharmacy: [facility] Insurance: Health plan Prescription Benefit: yes Living Will/HPOA: yes, Seda Gonzalez LNOK: Living Arrangements: Patient lives with in a 2 story home with bed and bath on first floor. Patient states there is a flight of stairs to enter the home with railing or 3 steps in front with no railing. Patient states he was independent at home prior to surgery. Transportation: DME/HHC: Patient states he has cane and walker at home. No previous HHC or SNF. Disposition Plan: Patient to discharge home with family support and follow-up plans in place. Ivette MARQUEZ, RN, CM
--- NOTE | 2021-02-07 14:53 | NURSING ---
dressing changed per dr smith pt shown how to change dressing. stated she understood how to change dressing
== END 2021-02-07 14:51 | disposition home or self-care (01) ==
LOC: SDC 17:21 → MS3 17:21
PROVIDERS: Anesthesiology; Hospitalist; Admitting Provider Orthopaedic Surgery; PCP Family Medicine; Referring Provider Orthopaedic Surgery; Visit Provider Family Medicine
PROC: (CPT 63030; principal; 2021-02-06 11:30)
DX: M48.061 Spinal stenosis, lumbar region without neurogenic claudication (principal); M47.26 Other spondylosis with radiculopathy, lumbar region; M51.16 Intervertebral disc disorders with radiculopathy, lumbar region; I10 Essential (primary) hypertension; M46.96 Unspecified inflammatory spondylopathy, lumbar region; E66.9 Obesity, unspecified; E78.5 Hyperlipidemia, unspecified; F10.10 Alcohol abuse, uncomplicated; Z79.82 Long term (current) use of aspirin; Z79.899 Other long term (current) drug therapy; Z87.891 Personal history of nicotine dependence; Z68.31 Body mass index [BMI] 31.0-31.9, adult
CPT/HCPCS: 00670; 63047; 63048; 36415; 71046; 72020; 76000; 80048; 80076; 83036; 85007; 85025; 85027; 85610; 85730; 87426; 96361; 96365; 96366; 96375; 96376; 97162; 99218; 99251; C9803; J7120; A4216; G0378; G0379; G0463; J2405

== ENCOUNTER 2021-10-23 05:13 | Observation (INO) | payer MEDICARE, SELFPAY ==
[2021-10-23] VITALS (11 sets, daily range): BP systolic 123–167; BP diastolic 74–88; PULSE 54–73; RESP 15–18; TEMP 2.7–36.8; O2SAT 94–100; BMI 31.8; BMI 31.2
--- NOTE | 2021-10-23 05:50 | EKG12_ITS ---
Test Reason : DYSRHYTHMIA Blood Pressure : / mmHG Vent. Rate : 053 BPM Atrial Rate : 053 BPM P-R Int : 180 ms QRS Dur : 104 ms QT Int : 448 ms P-R-T Axes : 019 -08 032 degrees QTc Int : 420 ms Sinus bradycardia Otherwise normal ECG Confirmed by OSWALDO GORDON, TOSIN ([id number]), manager editorial ARIADNA BANSAL ([id number]) on 10/24/2021 8:38:21 AM Referred By: DEBORAH Confirmed By:TOSIN CHACON MD
--- NOTE | 2021-10-23 05:50 | RAD_ITS ---
EXAM: XR Chest, 2 Views CLINICAL INDICATION: 66 years old, Male; chest pain TECHNIQUE: Frontal and lateral views of the chest. This report was created using [employer] report generation technology. COMPARISON: XR Chest dated 02/05/2021 FINDINGS: Lungs and pleural spaces: Atelectasis in the lung bases. No pneumothorax. No effusion. Heart: Unremarkable. Cardiac silhouette not enlarged. Mediastinum: Central airways and mediastinal contour are unremarkable. Bones/joints: Unremarkable. Soft tissues: Unremarkable. RAD/Chest PA and Lateral IMPRESSION: No acute findings in the chest. Electronically Signed: David Mancilla MD at 6:19 EST ,
[2021-10-23] MEDS: Aspirin 325 MG Tablet PO (05:56)
[2021-10-23 06:02] LABS: Absolute Lymphocyte Count 1.37 X10^3/uL (0.83-4.51); Absolute Neutrophil Count 2.3 X10^3/uL (2.0-7.7); Basophil# 0.06 X10^3/uL; Basophil% 1.3 % (0-1); Eosinophil# 0.18 X10^3/uL; Hematocrit 38.8 % (40-54); Hemoglobin 13.8 g/dL (13.0-16.5); Lymphocyte # 1.37 X10^3/ul (0.83-4.51); Lymphocyte % 30.2 % (19-41); Mean Corp Hgb Conc 35.6 g/dL (32-36); Mean Corpuscular Hgb 32.3 pg (27.0-32.0); Mean Corpuscular Volume 90.9 fL (80-94); Mean Platelet Vol. 8.6 fl (6.2-12.0); Monocyte# 0.55 X10^3/uL; Monocyte% 12.1 % (0-10); NRBC Flagged by Analyzer 0 % (0-5); Neutrophil # 2.33 X10^3/uL (2.7-7.7); Neutrophil % 51.5 % (47-70); Platelet Count 297 K/mm3 (150-450); RBC Distribution Width SD 39.8 fl (35.1-43.9); Red Blood Count 4.27 M/mm3 (4.6-6.2); White Blood Count 4.5 K/mm3 (4.4-11.0)
[2021-10-23 06:28] LABS: Anion Gap 7 (5-15); BUN 16 mg/dL (7-18); BUN/Creat Ratio 16.1 RATIO (10-20); Calcium,Total 9.1 mg/dL (8.5-10.1); Chloride 101 mmol/L (98-107); Creatinine, Serum 0.99 mg/dL (0.70-1.30); EST Glomerular Filtration Rate 80 mL/min (>60); Est Glom Filt Rate - Afr Amer 97 mL/min (>60); Estimated Creatinine Clearance 79.47 ml/min; Glucose 109 mg/dL (74-106); Magnesium 2.1 mg/dL (1.6-2.6); Potassium 3.7 mmol/L (3.5-5.1); Sodium Level 136 mmol/L (136-145); Troponin-I HS 40 pg/mL (3.0-78.0)
--- NOTE | 2021-10-23 06:30 | EX.ED.DYSGE1 ---
HPI History of Present Illness Chief Complaint: Shortness of Breath Narrative Narrative: Patient is a 66-year-old male with a past medical history of high blood pressure and high cholesterol. He states that he woke around 2:30 in the morning because he could not sleep. He states he was up doing things at home such as being on the computer when he noticed he was having midsternal chest discomfort that he describes as a tightness that radiated out towards both arms and up into the neck. He states there was no nausea vomiting diaphoresis or shortness of breath associated with this. He states symptoms were present for approximately 2 hours and had concerned this could be cardiac in nature because he had a father and brother both with heart attacks roughly the same age. Secondary to this he presents for evaluation [facility] Medical History Alcohol use Arthritis Back pain Former smoker High cholesterol History of edema History of pain when walking History of steroid therapy History of stress test Hypertension Leg cramps Shortness of breath on exertion Wears glasses Home Medications atorvastatin 20 mg PO QHS 09/18/13 [History Last Taken Unknown] hydrochlorothiazide 25 mg PO DAILY 09/18/13 [History Last Taken 09/18/13 07:36 0530] irbesartan [Avapro] 300 mg PO DAILY 09/18/13 [History Last Taken 02/06/21] cholecalciferol (vitamin D3) [Vitamin D3] 1,000 unit PO DAILY 12/17/17 [History Last Taken Unknown] aspirin 81 mg PO DAILY 10/23/21 [History Last Taken Unknown] etodolac 400 mg PO BID 10/23/21 [History Last Taken Unknown] Allergy/AdvReac Type Severity Reaction Status Date / Time acetaminophen [From Percocet] AdvReac Upset Verified 10/23/21 05:14 Stomach oxycodone [From Percocet] AdvReac Upset Verified 10/23/21 05:14 Stomach Surgical History History of tonsillectomy Hx laparoscopic cholecystectomy Hx of arthroscopic knee surgery Hx of arthroscopic knee surgery Hx of colonoscopy Hx of repair of right rotator cuff Hx of total knee arthroplasty Social History Smoking Status: Former smoker ROS ROS ED Constitutional Constitutional ED: Denies chills or fever(s) ENT ENT ED: Denies sore throat Cardiovascular Cardiovascular: Reports chest pain; Denies palpitations or racing heartbeat Respiratory/Chest Respiratory/Chest: Denies cough or dyspnea Gastrointestinal Gastrointestinal: Denies abdominal pain, diarrhea, nausea or vomiting Genitourinary Genitourinary ED: Denies dysuria Musculoskeletal Musculoskeletal: Denies myalgias Integumentary Denies rash Neurologic Neurologic: Denies headache(s) Hematologic/Lymphatic Hematologic/Lymphatic: Denies easy bleeding or easy bruising EXAM Physical Exam Const Vital Signs: 10/23/21 05:17 10/23/21 05:20 10/23/21 06:32 Temperature 97.1 F L Temperature Source Temporal Pulse Rate 61 54 L Respiratory Rate 15 16 Respiratory Effort Normal Respiratory Depth Normal Respiratory Pattern Normal Blood Pressure 167/86 H 139/88 H Blood Pressure Mean 113 105 Pulse Ox 99 94 Oxygen Delivery Method Room Air Room Air Room Air Positive well nourished and well developed General Appearance ED: well developed HEENT Reports moist mucous membranes Eyes PERRL and EOMs intact bilaterally Neck supple Neck Narrative: No carotid bruit noted Chest Wall palpation of chest normal Chest Narrative: No bony deformity or crepitance no reproducible pain with palpation Resp normal respiratory effort and clear to auscultation bilaterally Cardio regular rhythm Rate: bradycardia and other Other Details: Radial pulses are +2-4 bilaterally are equal and symmetric GI normal to inspection, nondistended, normoactive bowel sounds, non-tender, non-distended and no masses GI Narrative: No voluntary guarding or rigidity no pulsatile mass Auscultation: normoactive bowel sounds Palpation: soft Extremity Extremity Narrative: +1 pitting edema to the bilateral lower extremities is equal and symmetric and chronic per patient. Negative Homans' sign bilaterally Neuro oriented x3 and CN's II-XII intact bilaterally Sensorium / Orientation: alert Motor Exam: strength 5/5 throughout Psych Psych Narrative: Patient has a depressed/flat affect Skin no rashes or lesions noted MDM MDM MDM Narrative Medical decision making narrative: Patient presented to the ER with spontaneous resolution of his symptoms and just mildly hypertensive. He does have risk factors for cardiac disease and the fact he is a male over the age of 40 with high blood pressure high cholesterol and a family history of heart disease in his father and brother. Secondary to the sudden nature of its onset and the fact that was tightness radiating to his arms and neck elected perform cardiac work-up. His chest x-ray reveals no acute findings or widening of his mediastinum. His blood work shows an initial troponin of 40 which is technically within normal limits. At this time as the patient is high risk for cardiovascular disease he will need a 2-hour delta troponin. Therefore patient will be signed out to the oncoming physician and as its been reported 1 to 2 years since last cardiac work-up he may need admitted at this time if his troponin continues to elevate Lab Data Attestation: I reviewed the patient's lab results. Labs: Laboratory Results - last 24 hr 10/23/21 10/23/21 05:55 05:55 WBC 4.5 RBC 4.27 L Hgb 13.8 Hct 38.8 L MCV 90.9 MCH 32.3 H MCHC 35.6 RDW Std Deviation 39.8 RDW Coeff of Rosales 12.0 Plt Count 297 MPV 8.6 Immature Gran % (Auto) 0.900 Neut % (Auto) 51.5 Lymph % (Auto) 30.2 [place] % (Auto) 12.1 H Eos % (Auto) 4.0 Baso % (Auto) 1.3 H Absolute Neuts (auto) 2.3 Absolute Lymphs (auto) 1.37 Nucleated RBC % 0 Sodium 136 Potassium 3.7 Chloride 101 Carbon Dioxide 28.0 Anion Gap 7 BUN 16 Creatinine 0.99 Estim Creat Clear Calc 79.47 Est GFR (MDRD) Af Amer 97 Est GFR (MDRD) Non-Af 80 BUN/Creatinine Ratio 16.1 Glucose 109 H Calcium 9.1 Magnesium 2.1 Troponin I High Sens 40 Radiography Diagnostic Testing: Clinical Impression(s) from Imaging Studies Chest X-Ray 10/23/21 05:50 IMPRESSION: No acute findings in the chest. Electronically Signed: David Mancilla MD at 6:19 EST , Discharge Plan Triage Chief Complaint: Shortness of Breath ED Provider: Tr Haddad Dx/Rx/DC Orders Prescriptions: No Action atorvastatin 20 MG tablet 20 mg PO QHS RF: 0 hydrochlorothiazide 25 MG tablet 25 mg PO DAILY RF: 0 irbesartan [Avapro] 300 MG tablet 300 mg PO DAILY RF: 0 cholecalciferol (vitamin D3) [Vitamin D3] 1,000 UNIT capsule 1,000 unit PO DAILY RF: 0 etodolac 400 mg tablet 400 mg PO BID RF: 0 aspirin 81 mg Capsule 81 mg PO DAILY RF: 0 Primary Care Provider: Jarrod Elizabeth
[2021-10-23 08:35] LABS: Troponin-I HS 56 pg/mL (3.0-78.0)
--- NOTE | 2021-10-23 08:55 | NURSING ---
DR KARLOS ALEGRE
--- NOTE | 2021-10-23 08:56 | NURSING ---
PCU OBS CP KARLOS
--- NOTE | 2021-10-23 09:00 | ECHOD_ITS ---
Reason For Study: CHEST PAIN Procedure This was a 2D Doppler, Color Flow transthoracic echocardiogram. Exam performed portable in patient room. Left Ventricle Normal left ventricle. The estimated ejection fraction is 55-60 %. Right Ventricle A calcified moderator band is seen in the right ventricle. Normal systolic function. The right ventricular wall motion is normal. Atria Normal left atrium. Normal right atrium. Mitral Valve There is mild mitral annular calcification. No mitral valve insufficiency. Tricuspid Valve Normal tricuspid valve. No tricuspid valve insufficiency. Aortic Valve Mild diffuse aortic valve calcification. Trivial aortic valve insufficiency. Pulmonic Valve The pulmonic valve is not well visualized. Great Vessels Normal aortic root. Pericardium/Pleural No pericardial effusion. MMode/2D Measurements & Calculations LVIDd: 4.7 cm IVSd: 1.2 cm Ao root diam: 3.4 cm LVIDs: 3.2 cm LVPWd: 1.2 cm RVDd: 4.2 cm FS: 31.8 % LAV(MOD-bp): 40.2 ml LVAd ap4: 34.4 cm2 SV(MOD-sp4): 70.0 ml LAV(MOD-bp) Indexed: 17.6 ml/m2 LVLd ap4: 8.3 cm LAV(MOD-sp2): 36.7 ml EDV(MOD-sp4): 114.8 ml LAV(MOD-sp4): 43.2 ml EDV(sp4-el): 120.5 ml LVAs ap4: 19.5 cm2 LVLs ap4: 7.1 cm ESV(MOD-sp4): 44.9 ml ESV(sp4-el): 45.2 ml EF(MOD-sp4): 60.9 % EF(sp4-el): 62.5 % SV(sp4-el): 75.3 ml LA A4 area: 17.3 cm2 LA dimension(2D): 3.8 cm RA A4 area: 14.0 cm2 Time Measurements MV dec time: 0.27 sec Doppler Measurements & Calculations MV E max gerhard: 73.2 cm/sec Lat Peak E' Gerhard: 13.1 cm/sec Med Peak E' Gerhard: 9.5 cm/sec MV A max gerhard: 95.0 cm/sec E/E' lat: 5.6 E/E' med: 7.7 MV E/A: 0.77 Ao V2 max: 135.9 cm/sec LV V1 max: 120.9 cm/sec PA V2 max: 77.4 cm/sec Ao max P.4 mmHg LV V1 max P.8 mmHg ECHO/Echo Complete Interpretation Summary The estimated ejection fraction is 55-60 %. Calcified moderator band/RV No prior study to compare Ordering Physician: Jag Graham Referring Physician: LAURA ORDAZ Performed By: Lori Sanchez RDCS
--- NOTE | 2021-10-23 10:05 | PCM.HP.STD ---
HPI - General General Date of Admission: 10/23/21 Date of Service: 10/23/21 Chief Complaint: Chest discomfort HPI Narrative ROSSANA BERUMEN, is a 66 M with past medical history is again for dyslipidemia and hypertension who presents chest discomfort. Patient symptoms started on the morning of his admission around 2 AM. He woke up not feeling well. He does describe his condition as feeling sick. He later did experience chest discomfort which he described as pressure located across the chest. He also did experience radiation to both armpits as well as his neck and his jaw. He also found that his blood pressure was elevated he subsequently elected to present to the emergency department. In the ED his initial set of cardiac enzymes and EKG came back negative. Subsequently admitted to monitored bed for further evaluation and management [facility] Medical History Alcohol use Arthritis Back pain Former smoker High cholesterol History of edema History of pain when walking History of steroid therapy History of stress test Hypertension Leg cramps Shortness of breath on exertion Wears glasses Home Medications atorvastatin 20 mg PO QHS 09/18/13 [History Last Taken Unknown] hydrochlorothiazide 25 mg PO DAILY 09/18/13 [History Last Taken 09/18/13 07:36 0530] irbesartan [Avapro] 300 mg PO DAILY 09/18/13 [History Last Taken 02/06/21] cholecalciferol (vitamin D3) [Vitamin D3] 1,000 unit PO DAILY 12/17/17 [History Last Taken Unknown] aspirin 81 mg PO DAILY 10/23/21 [History Last Taken Unknown] etodolac 400 mg PO BID 10/23/21 [History Last Taken Unknown] Allergy/AdvReac Type Severity Reaction Status Date / Time acetaminophen [From Percocet] AdvReac Upset Verified 10/23/21 05:14 Stomach oxycodone [From Percocet] AdvReac Upset Verified 10/23/21 05:14 Stomach Family History Brother CAD (coronary artery disease) Surgical History History of tonsillectomy Hx laparoscopic cholecystectomy Hx of arthroscopic knee surgery Hx of arthroscopic knee surgery Hx of colonoscopy Hx of repair of right rotator cuff Hx of total knee arthroplasty Social History Smoking Status: Former smoker ROS ROS Narrative GENERAL: denies fever, chills, night sweats, weight loss, anorexia HEENT: denies headache, sinus congestion, or drainage, dysphagia RESPIRATORY: denies cough, sputum production, shortness of breath, CARDIAC: denies , palpitations, orthopnea, PND GASTROINTESTINAL: denies abdominal pain, nausea, vomiting, melena, GENITOURINARY: denies dysuria, urgency, frequency, heamaturia EXTREMITY: denies swelling MUSCULOSKELETAL: denies current joint pain or tenderness NEUROLOGIC: denies focal numbness, weakness, tingling HEMATOLOGIC: denies easy bruising and/or hemorrhage INTEGUMENT: denies rashes PSYCHIATRIC: denies suicidal or homicidal ideation Vital Signs Vital Signs Vital Signs: 10/23/21 05:17 10/23/21 05:20 10/23/21 06:32 Temperature 97.1 F L Temperature Source Temporal Pulse Rate 61 54 L Respiratory Rate 15 16 Respiratory Effort Normal Respiratory Depth Normal Respiratory Pattern Normal Blood Pressure 167/86 H 139/88 H Blood Pressure Mean 113 105 Pulse Ox 99 94 Oxygen Delivery Method Room Air Room Air Room Air 10/23/21 07:23 10/23/21 08:57 Temperature 97.8 F Temperature Source Temporal Pulse Rate 57 L 57 L Respiratory Rate 18 16 Respiratory Effort Respiratory Depth Respiratory Pattern Blood Pressure 157/80 H 157/80 H Blood Pressure Mean 105 105 Pulse Ox 98 98 Oxygen Delivery Method Room Air Room Air Weight Weight: 104.598 kg Body Mass Index (BMI) 31.2 Physical Exam Narrative GENERAL: cooperative HEENT: Atraumatic; EYES; Anicteric, Normal Conjunctiva NECK; supple, normal thyroid, RESPIRATORY: Diminished to auscultation CARDIOVASCULAR: Regular S1 S2, GI: soft, normoactive bowel sounds, : No Renal angle tenderness; EXTREMITIES: No edema, no clubbing, MUSCULOSKELETAL: no muscle wasting NEURO: Awake; no lateralizing signs. SKIN: No Rash PSYCH; Flat affect Results Lab / Micro Data Result Diagrams: 10/23/21 05:55 10/23/21 05:55 Labs: Laboratory Results - last 24 hr 10/23/21 05:55: Sodium 136, Potassium 3.7, Chloride 101, Carbon Dioxide 28.0, Anion Gap 7, BUN 16, Creatinine 0.99, Estim Creat Clear Calc 79.47, Est GFR (MDRD) Af Amer 97, Est GFR (MDRD) Non-Af 80, BUN/Creatinine Ratio 16.1, Glucose 109 H, Calcium 9.1, Magnesium 2.1, Troponin I High Sens 40 10/23/21 05:55: WBC 4.5, RBC 4.27 L, Hgb 13.8, Hct 38.8 L, MCV 90.9, MCH 32.3 H, MCHC 35.6, RDW Std Deviation 39.8, RDW Coeff of Rosales 12.0, Plt Count 297, MPV 8.6, Immature Gran % (Auto) 0.900, Neut % (Auto) 51.5, Lymph % (Auto) 30.2, [place] % (Auto) 12.1 H, Eos % (Auto) 4.0, Baso % (Auto) 1.3 H, Absolute Neuts (auto) 2.3, Absolute Lymphs (auto) 1.37, Nucleated RBC % 0 10/23/21 08:00: Troponin I High Sens 56 Radiology Impression Chest X-Ray 10/23/21 05:50 IMPRESSION: No acute findings in the chest. Electronically Signed: David Mancilla MD at 6:19 EST , Assessment & Plan Assessment/Plan (1) Chest pain: (2) HTN (hypertension): (3) Hyperlipidemia: PLAN: Patient is a 66-year-old gentleman presenting with chest discomfort 1. Chest pain ?Patient has been admitted to monitored bed with plans to rule out SD with serial cardiac enzymes and EKG. Plan is for patient to undergo nuclear stress test once SD is ruled out. Patient is not a candidate for exercise stress test given his recent lumbar laminectomy (in 01/2021) 2. Hypertension - Blood pressure controlled, home medications continued with dose adjustment as needed 3. Dyslipidemia -Patient is on statin therapy, continued at home dose 4. Degenerative joint disease ?With history of lumbar laminectomy in 02/02/2021 5. Class I obesity ?With BMI of 31.3 ?Weight loss advised 6. DVT prophylaxis ?SC Lovenox Charges/Coding Visit Charges OBSV E&M: 55398 Initial observation care L3
--- NOTE | 2021-10-23 10:27 | EKG12_ITS ---
Test Reason : Blood Pressure : / mmHG Vent. Rate : 069 BPM Atrial Rate : 069 BPM P-R Int : 176 ms QRS Dur : 102 ms QT Int : 420 ms P-R-T Axes : 030 -08 039 degrees QTc Int : 450 ms Normal sinus rhythm Normal ECG When compared with ECG of 23-OCT-2021 06:03, MANUAL COMPARISON REQUIRED, DATA IS UNCONFIRMED Confirmed by OSWALDO GORDON, TOSIN ([id number]), make up editor ARIADNA BANSAL ([id number]) on 10/24/2021 12:00:05 PM Referred By: RAFAEL Confirmed By:TOSIN CHACON MD
[2021-10-23] MEDS: hydroCHLOROthiazide 25 MG Tablet PO (11:19)
[2021-10-23] MEDS: Losartan Potassium 100 MG Tablet PO (11:19)
[2021-10-23] MEDS: Etodolac 200 MG Capsule 400 MG PO ×2 (11:19→21:55)
[2021-10-23] MEDS: Aspirin 81 MG TAB.CHEW PO (11:19)
[2021-10-23] MEDS: Enoxaparin 40 MG/0.4 ML Syringe SC (11:20)
[2021-10-23 12:34] LABS: Troponin-I HS 65 pg/mL (3.0-78.0)
[2021-10-23] MEDS: Cholecalciferol (VIT D3) 25 MCG TABLET (1,000 UNITS) PO (14:05)
[2021-10-23] MEDS: Atorvastatin Calcium 20 MG Tablet PO (21:55)
[2021-10-24] VITALS (15 sets, daily range): BP systolic 122–176; BP diastolic 70–94; PULSE 55–81; RESP 16–18; TEMP 35.7–36.9; O2SAT 96–100
[2021-10-24 05:09] LABS: Absolute Lymphocyte Count 1.98 X10^3/uL (0.83-4.51); Absolute Neutrophil Count 2.7 X10^3/uL (2.0-7.7); Basophil# 0.05 X10^3/uL; Basophil% 0.9 % (0-1); Eosinophils% 3.5 % (0-5); Hematocrit 38.1 % (40-54); Hemoglobin 12.8 g/dL (13.0-16.5); Lymphocyte # 1.98 X10^3/ul (0.83-4.51); Lymphocyte % 34.7 % (19-41); Mean Corp Hgb Conc 33.6 g/dL (32-36); Mean Corpuscular Hgb 31.1 pg (27.0-32.0); Mean Corpuscular Volume 92.7 fL (80-94); Mean Platelet Vol. 9.1 fl (6.2-12.0); Monocyte# 0.71 X10^3/uL; Monocyte% 12.4 % (0-10); NRBC Flagged by Analyzer 0 % (0-5); Neutrophil # 2.73 X10^3/uL (2.7-7.7); Neutrophil % 47.8 % (47-70); Platelet Count 296 K/mm3 (150-450); RBC Distribution Width CV 12.1 % (11.6-14.6); RBC Distribution Width SD 41.4 fl (35.1-43.9); Red Blood Count 4.11 M/mm3 (4.6-6.2); White Blood Count 5.7 K/mm3 (4.4-11.0)
[2021-10-24 05:35] LABS: Anion Gap 5 (5-15); BUN 21 mg/dL (7-18); BUN/Creat Ratio 19.8 RATIO (10-20); Chloride 104 mmol/L (98-107); Creatinine, Serum 1.06 mg/dL (0.70-1.30); EST Glomerular Filtration Rate 74 mL/min (>60); Est Glom Filt Rate - Afr Amer 90 mL/min (>60); Estimated Creatinine Clearance 74.22 ml/min; Glucose 102 mg/dL (74-106); Sodium Level 137 mmol/L (136-145)
--- NOTE | 2021-10-24 06:00 | EKG12_ITS ---
Test Reason : AM EKG Blood Pressure : / mmHG Vent. Rate : 056 BPM Atrial Rate : 056 BPM P-R Int : 176 ms QRS Dur : 106 ms QT Int : 448 ms P-R-T Axes : 035 023 051 degrees QTc Int : 432 ms Sinus bradycardia Nonspecific ST abnormality Abnormal ECG When compared with ECG of 23-OCT-2021 10:27, MANUAL COMPARISON REQUIRED, DATA IS UNCONFIRMED Confirmed by OSWALDO GORDON, TOSIN ([id number]), editor dictionary ARIADNA BANSAL ([id number]) on 10/24/2021 9:22:27 AM Referred By: DR EVERETT Confirmed By:TOSIN CHACON MD
[2021-10-24] MEDS: Aspirin 81 MG TAB.CHEW PO (06:27)
[2021-10-24] MEDS: Losartan Potassium 100 MG Tablet PO (06:27)
--- NOTE | 2021-10-24 07:22 | PCM.PN.HOSP ---
Subjective Subjective Patient seen cardiac enzymes remain negative. Patient is scheduled to undergo nuclear stress test to rule out myocardial ischemia Objective Data Objective Data Vital Signs: Vital Signs Temp Pulse Resp BP Pulse Ox 96.3 F L 58 L 16 154/94 H 100 10/24/21 06:28 10/24/21 06:28 10/24/21 06:28 10/24/21 06:28 10/24/21 06:28 Oxygen Delivery Method Room Air Weight: 104.598 kg Body Mass Index (BMI) 31.2 Lab / Micro Data Result Diagrams: 10/24/21 03:44 10/24/21 03:44 Labs: Laboratory Results - last 24 hr 10/23/21 08:00: Troponin I High Sens 56 10/23/21 11:57: Troponin I High Sens 65 10/24/21 03:44: WBC 5.7, RBC 4.11 L, Hgb 12.8 L, Hct 38.1 L, MCV 92.7, MCH 31.1, MCHC 33.6 D, RDW Std Deviation 41.4, RDW Coeff of Rosales 12.1, Plt Count 296, MPV 9.1, Immature Gran % (Auto) 0.700, Neut % (Auto) 47.8, Lymph % (Auto) 34.7, [place] % (Auto) 12.4 H, Eos % (Auto) 3.5, Baso % (Auto) 0.9, Absolute Neuts (auto) 2.7, Absolute Lymphs (auto) 1.98, Nucleated RBC % 0 10/24/21 03:44: Sodium 137, Potassium 4.0, Chloride 104, Carbon Dioxide 28.0, Anion Gap 5, BUN 21 H, Creatinine 1.06, Estim Creat Clear Calc 74.22, Est GFR (MDRD) Af Amer 90, Est GFR (MDRD) Non-Af 74, BUN/Creatinine Ratio 19.8, Glucose 102, Calcium 9.0 Radiography Diagnostic Testing: Radiology Impression Echocardiogram 10/23/21 09:00 Interpretation Summary The estimated ejection fraction is 55-60 %. Calcified moderator band/RV No prior study to compare Ordering Physician: Jag Graham Referring Physician: LAURA ORDAZ Performed By: Lori Sanchez RDCS Physical Exam Narrative GENERAL: cooperative HEENT: Atraumatic; EYES; Anicteric, Normal Conjunctiva NECK; supple, normal thyroid, RESPIRATORY: Diminished to auscultation CARDIOVASCULAR: Regular S1 S2, GI: soft, normoactive bowel sounds, : No Renal angle tenderness; EXTREMITIES: No edema, no clubbing, MUSCULOSKELETAL: no muscle wasting NEURO: Awake; no lateralizing signs. SKIN: No Rash PSYCH; Flat affect Assessment & Plan Assessment/Plan (1) Chest pain: (2) HTN (hypertension): (3) Hyperlipidemia: PLAN: Patient is a 66-year-old gentleman presenting with chest discomfort 1. Chest pain ?Patient has been admitted to monitored bed with plans to rule out NH with serial cardiac enzymes and EKG. Plan is for patient to undergo nuclear stress test once NH is ruled out. Patient is not a candidate for exercise stress test given his recent lumbar laminectomy (in 01/2021) -10/24/2021 Patient seen cardiac enzymes remain negative. Patient is scheduled to undergo nuclear stress test to rule out myocardial ischemia 2. Hypertension - Blood pressure controlled, home medications continued with dose adjustment as needed 3. Dyslipidemia -Patient is on statin therapy, continued at home dose 4. Degenerative joint disease ?With history of lumbar laminectomy in 02/02/2021 5. Class I obesity ?With BMI of 31.3 ?Weight loss advised 6. DVT prophylaxis ?SC Lovenox Charges/Coding Visit Charges OBSV E&M: 34670 Subsequent observation care L2
--- NOTE | 2021-10-24 10:35 | CASEMGMT ---
GERARD CM in to complete SCHNEIDER form with patient. RN LIT explained SCHNEIDER form to patient, patient voiced understanding. Patient signed SCHNEIDER form and filed in chart. Patient provided with copy of signed SCHNEIDER form. Patient had no further questions or concerns.
--- NOTE | 2021-10-24 14:08 | STRESSREP ---
Stress Test Report Pharmacologic/Lexiscan sestamibi myocardial perfusion stress test. Indication; 66-year-old patient history of dyslipidemia, hypertension, presented the with symptoms of chest pain Symptoms described as pressure gradient across the chest with radiation to both arms. Patient noted his blood pressure was elevated Stress protocol: Resting EKG demonstrates. Normal sinus rhythm.. 0.4 mg of regadenoson was infused per usual protocol followed by rapid intravenous saline flush injection continuous EKG monitoring was performed. The maximum heart rate attained was 86 bpm which was 50% of maximum predicted heart . Stress EKG showed[, no significant ST?T change from the resting EKG, with maximum heart rate of 86 bpm. Arrhythmia: No arrhythmia demonstrated Symptoms: Patient had no symptoms of chest pain Blood pressure at rest 140/88 mmHg blood pressure at the end of stress: 140/88 mmHg Myocardial perfusion protocol. 14.6 mCi ]of Technetium 99m Sestamibi was injected at rest. 0.4 mg of Regadenoson was infused per usual protocol peak infusion 44.4 mCi ]of Technetium 99m sestamibi was injected. Stress images were obtained stress and rest images were reconstructed and compared in the short axis vertical and horizontal long axis. Gated images were also obtained Perfusion SPECT analysis: Moderate size reduced tracer uptake noted in the inferolateral region, at maximal stress in comparison to the resting images. Suggestive of inferolateral myocardial ischemia. Gated SPECT analysis: The gated ejection fraction is 66% Normal LV systolic function and normal left ventricular wall motion Conclusion: Abnormal Lexiscan sestamibi myocardial perfusion study With moderate infero- lateral reversible myocardial ischemia Preserved LV systolic function Recommendation; Correlate with the clinical presentation and discuss further need of evaluation by cardiac cath If clinically indicated Emilie Torres MD,FACC,[facility]
--- NOTE | 2021-10-24 15:09 | PCM.CONS.C ---
Assessment & Plan Assessment/Plan (1) Status post lumbar laminectomy: (2) Alcohol abuse: (3) Hyperlipidemia: (4) HTN (hypertension): (5) Chest pain: PLAN: This patient with risk factor for CAD with hypertension hyperlipidemia Also had a history of alcohol abuse Had significant family history of CAD Presented to the hospital with symptoms of chest pain Underwent evaluation with Lexiscan sestamibi which is abnormal Revealed inferolateral reversible myocardial ischemia with preserved systolic function Cardiac care plan recommendations; 1. Based on his clinical presentation with atypical angina and risk factors Recommended to proceed with a cardiac catheterization/right radial artery approach Also advised cessation of alcohol use 2. Cardiac care plan discussed with the patient, nursing staff and the medical team and will proceed with cardiac cath. HPI Consult Data Date of Consult: 10/24/21 HPI Narrative Reason for Consultation: Chest pain/unstable angina with AbnormalNuclearstress test HPI Narrative: ROSSANA BERUMEN, is a 66 M who [facility] Medical History (Updated 10/23/21 @ 10:[address] Jag Graham MD) Alcohol use Arthritis Back pain Former smoker High cholesterol History of edema History of pain when walking History of steroid therapy History of stress test Hypertension Leg cramps Shortness of breath on exertion Home Medications atorvastatin 20 mg PO QHS 09/18/13 [History Last Taken Unknown] hydrochlorothiazide 25 mg PO DAILY 09/18/13 [History Last Taken 09/18/13 07:36 0530] irbesartan [Avapro] 300 mg PO DAILY 09/18/13 [History Last Taken 02/06/21] cholecalciferol (vitamin D3) [Vitamin D3] 1,000 unit PO DAILY 12/17/17 [History Last Taken Unknown] aspirin 81 mg PO DAILY 10/23/21 [History Last Taken Unknown] etodolac 400 mg PO BID 10/23/21 [History Last Taken Unknown] Allergy/AdvReac Type Severity Reaction Status Date / Time acetaminophen [From Percocet] AdvReac Upset Verified 10/23/21 05:14 Stomach oxycodone [From Percocet] AdvReac Upset Verified 10/23/21 05:14 Stomach Family History Brother CAD (coronary artery disease) Surgical History (Updated 10/23/21 @ 10:09 by Mack Garcia) History of back surgery History of tonsillectomy Hx laparoscopic cholecystectomy Hx of arthroscopic knee surgery Hx of arthroscopic knee surgery Hx of colonoscopy Hx of repair of right rotator cuff Hx of total knee arthroplasty Social History Smoking Status: Former smoker Physical Exam Narrative Patient evaluated at bedside in PCU Along with the medical team and the nursing staff at bedside Alert orientated x3 Sitting out in a chair not in acute distress At rest no symptoms of chest pain Review of the cardiac telemetry normal sinus rhythm Cardiovascular examination S1-S2 is regular there is no murmur no Emery cholesterol murmur Chest examination is clear to auscultation bilateral Central nervous system exam no focal neurological deficit. Examination lower extremity no lower extremity edema Risk Stratification Risk Stratification Applicable: Yes Age >/= 65: Yes >/= 3 CAD Risk Factors (HTN, HLD, DM, family hx of CAD, or current smoker): Yes Aspirin Use in the Past 7 Days: No Severe Angina (>/= episodes in 24 hours): No EKG ST Changes >/= 0.5mm: No Positive Cardiac Marker: No MITCHELL Risk Stratification Score: 2 MITCHELL % Risk: 8% Risk Objective Data Vital Signs: Vital Signs Temp Pulse Resp BP Pulse Ox 97.7 F L 68 18 176/89 H 100 10/24/21 14:56 10/24/21 14:56 10/24/21 14:56 10/24/21 14:56 10/24/21 14:56 Oxygen Delivery Method Room Air Weight: 230 lb 9.6 oz Body Mass Index (BMI) 31.2 Lab / Micro Data Result Diagrams: 10/24/21 03:44 10/24/21 03:44 Labs: Laboratory Results - last 24 hr 10/24/21 03:44: WBC 5.7, RBC 4.11 L, Hgb 12.8 L, Hct 38.1 L, MCV 92.7, MCH 31.1, MCHC 33.6 D, RDW Std Deviation 41.4, RDW Coeff of Rosales 12.1, Plt Count 296, MPV 9.1, Immature Gran % (Auto) 0.700, Neut % (Auto) 47.8, Lymph % (Auto) 34.7, [place] % (Auto) 12.4 H, Eos % (Auto) 3.5, Baso % (Auto) 0.9, Absolute Neuts (auto) 2.7, Absolute Lymphs (auto) 1.98, Nucleated RBC % 0 10/24/21 03:44: Sodium 137, Potassium 4.0, Chloride 104, Carbon Dioxide 28.0, Anion Gap 5, BUN 21 H, Creatinine 1.06, Estim Creat Clear Calc 74.22, Est GFR (MDRD) Af Amer 90, Est GFR (MDRD) Non-Af 74, BUN/Creatinine Ratio 19.8, Glucose 102, Calcium 9.0 Cardiology Labs/Tests 10/24/21 03:44: WBC 5.7, RBC 4.11 L, Hgb 12.8 L, Hct 38.1 L, MCV 92.7, MCH 31.1, MCHC 33.6 D, Plt Count 296, MPV 9.1, Immature Gran % (Auto) 0.700, Neut % (Auto) 47.8, Lymph % (Auto) 34.7, [place] % (Auto) 12.4 H, Eos % (Auto) 3.5, Baso % (Auto) 0.9, Absolute Neuts (auto) 2.7, Nucleated RBC % 0 10/24/21 03:44: Sodium 137, Potassium 4.0, Chloride 104, Carbon Dioxide 28.0, Anion Gap 5, BUN 21 H, Creatinine 1.06, Est GFR (MDRD) Af Amer 90, Est GFR (MDRD) Non-Af 74, BUN/Creatinine Ratio 19.8, Glucose 102, Calcium 9.0 Rhythm: Normal sinus with no significant arrhythmia EKG: Normal sinus rhythm ECHO: Normal LV systolic function Stress Test: Normal nuclear stress test With inferolateral reversible myocardial ischemia, normal LV systolic function Radiography Diagnostic Testing: Radiology Impression Echocardiogram 10/23/21 09:00 Interpretation Summary The estimated ejection fraction is 55-60 %. Calcified moderator band/RV No prior study to compare Ordering Physician: Jag Graham Referring Physician: LAURA ORDAZ Performed By: Lori Sanchez RDCS
--- NOTE | 2021-10-24 15:23 | CASEMGMT ---
According to the [employer] website, the following are in-network tertiary facilities: [facility], [place], [place], [facility], [facility], [facility], and . Amanda GEE CM
--- NOTE | 2021-10-24 16:14 | PRO.PCM_ITS ---
Procedure Report Date of Procedure: 10/24/21 Procedure performed; 1 moderate sedation 2. Left heart catheterization 3. Selective left cholangiography 4. Selective right cholangiography 5. Placement of TR band to close the right radial artery arteriotomy site. Consent; Risk and benefits of the procedure explained in detail to the patient elected to proceed informed consent obtained. Preprocedure diagnosis 66-year-old patient presented to the emergency department here at [facility] complaining of symptoms of retrosternal chest pain with radiation to the back and to the jaw Typical of angina, patient had risk factor with history of hypertension dyslipidemia and significant family history of CAD No history of diabetes Also had history of alcohol use he drinks around 6 beers per day. Based on the clinical presentation he underwent evaluation by a series of cardiac biomarkers which were negative including sets of high sensitive troponin and underwent evaluation by Lexiscan sestamibi marker perfusion study which is abnormal With evidence of inferolateral reversible myocardial ischemia with ejection fraction of 66%. Diagnostic catheter used; 1. 6 Canadian Terumo sheath 2. 5 Canadian Powell catheter 3. 5 Canadian pigtail catheter 4. 5 Canadian JL 5 diagnostic catheter. Procedure in detail; Patient brought into the [employer] in fasting state, right radial artery area prepped and draped in the usual sterile fashion. Access obtained from the right radial artery with placement of 6 Canadian Terumo sheath. Under fluoroscopic guidance, will proceed with the Powell catheter advanced ascending aorta, noted patient has heavily calcified left and right coronary system on fluoroscopic view Using the 5 Canadian Powell catheter cannulated the right coronary artery multiple views of the RCA including CYMRO, FELIX cranial and caudal views. Catheter exchanged for 5 Canadian JL 5 diagnostic catheter advanced into [place] cannulated the left main multiple views of the left main including CYMRO, FELIX cranial and caudal views The catheter exchanged for 5 Canadian angle pigtail catheter advanced to the ascending aorta, across the aortic valve placed in the mid left ventricle. Measurement of LVEDP performed and a low ventriculogram obtained 30 degree FELIX projection. Following this all catheter removed hemostasis maintained with placement of TR band to right radial artery arteriotomy site with no complication in the [employer] [place] [employer] At the end of the procedure he does not have any symptoms of chest pain and there was no change in the traffic monitor specialist. Hemodynamic; 1. LVEDP measured around 17 mmHg. 2. LV systolic function preserved ejection fraction in the range of around 60% 3. No systolic gradient across aortic valve. 4. No mitral regurgitation noted. Coronary angiography; 1. Left coronary system is heavily calcified, left main Short with nonobstructive atherosclerosis of around 30% distally Left main coronary artery bifurcating into left anterior descending and the left circumflex. 2. The left anterior descending is heavily calcified from proximal to distal, proximal LAD had around 50% stenosis, mid LAD had diffuse 60 to 70% LAD reach all the way to the apex with abundant septal branches. Ist diagonal/D1 branching vessel with ostial and proximal 50-60% 3. Proximal left circumflex calcified 40-50% stenosis, 4. RCA large dominant entire RCA is calcified including proximal mid and distal RCA Ostial RCA of 30 to 40%, proximal RCA calcified 70% stenosis, with calcification noted in the mid to the distal RCA Proximal RPDA diffuse atherosclerosis of around 90%, mid posterolateral branch 60-70% Conclusion and recommendation; This patient has unstable angina presenting with symptoms of chest pain with risk factors as mentioned He has abnormal nuclear stress test in the RCA distribution inferolateral reversible myocardial ischemia with preserved LV function Has significantly abnormal cholangiography with heavily calcified left and right colon system and significant coronary atherosclerosis involving the right large dominant RCA. I discussed this case with the Dr. Holm evidently patient had stress echo 2 years ago however he does not follow-up with the cardiology [facility] [place] PCI of complex RCA with atherectomy and to be seen and evaluated by the bypass team as well for second opinion in regard to his LAD and diagonal lesions and the heavily calcified left coronary system. I discussed the cardiac care plan recommendation with the patient and the , in regard to the transfer and agree on the plan No complication in the [employer] Emilie Torres MD,FACC,[facility]
--- NOTE | 2021-10-24 16:47 | DS.PCM_ITS ---
Providers Date of Admission: 10/23/21 Primary Care Physician: Dr. Jarrod Elizabeth, Consultations 10/24/21 14:47 Consult: Cardiology Routine Consulting Provider: Emilie Torres Reason for Consult: positive stress EMERGENT Consult: No MD Notified: Yes Date Notified: 10/24/21 Time Notified: 14:47 Method of Notification: Verbal Method of Consult:: In-Person Reason For Visit: CHEST PAIN Diagnosis Discharge Diagnosis (1) Status post lumbar laminectomy: Status: Acute Code(s): Z98.890 - Other specified postprocedural states (2) Alcohol abuse: Status: Chronic Code(s): F10.10 - Alcohol abuse, uncomplicated (3) Hyperlipidemia: Status: Chronic Code(s): E78.5 - Hyperlipidemia, unspecified (4) HTN (hypertension): Status: Chronic Code(s): I10 - Essential (primary) hypertension (5) Chest pain: Status: Acute Code(s): R07.9 - Chest pain, unspecified Medications at Discharge Home Medications hydrochlorothiazide 25 mg PO DAILY 09/18/13 irbesartan [Avapro] 300 mg PO DAILY 09/18/13 cholecalciferol (vitamin D3) [Vitamin D3] 1,000 unit PO DAILY 12/17/17 aspirin 81 mg PO DAILY 10/23/21 atorvastatin 80 mg PO QHS #0 tab 10/24/21 Hospital Course Procedures Cardiac catheterization Summary of Care Provided Minutes Spent on Discharge: 45 Hospital Course: . Chest pain ?Patient has been admitted to monitored bed with plans to rule out WI with serial cardiac enzymes and EKG. Plan is for patient to undergo nuclear stress test once WI is ruled out. Patient is not a candidate for exercise stress test given his recent lumbar laminectomy (in 01/2021) -10/24/2021 Patient seen cardiac enzymes remain negative. Patient is scheduled to undergo nuclear stress test to rule out myocardial ischemia -Patient nuclear stress test came back positive for stress-induced ischemia cardiology subsequently consulted patient underwent left heart catheterization. Findings and recommendation as below Hemodynamic; 1. LVEDP measured around 17 mmHg. 2. LV systolic function preserved ejection fraction in the range of around 60% 3. No systolic gradient across aortic valve. 4. No mitral regurgitation noted. Coronary angiography; 1. Left coronary system is heavily calcified, left main Short with nonobstructive atherosclerosis of around 30% distally Left main coronary artery bifurcating into left anterior descending and the left circumflex. 2. The left anterior descending is heavily calcified from proximal to distal, proximal LAD had around 50% stenosis, mid LAD had diffuse 60 to 70% LAD reach all the way to the apex with abundant septal branches. Ist diagonal/D1 branching vessel with ostial and proximal 50-60% 3. Proximal left circumflex calcified 40-50% stenosis, 4. RCA large dominant entire RCA is calcified including proximal mid and distal RCA Ostial RCA of 30 to 40%, proximal RCA calcified 70% stenosis, with calcification noted in the mid to the distal RCA Proximal RPDA diffuse atherosclerosis of around 90%, mid posterolateral branch 60-70% Conclusion and recommendation; This patient has unstable angina presenting with symptoms of chest pain with risk factors as mentioned He has abnormal nuclear stress test in the RCA distribution inferolateral reversible myocardial ischemia with preserved LV function Has significantly abnormal cholangiography with heavily calcified left and right colon system and significant coronary atherosclerosis involving the right large dominant RCA. I discussed this case with the Dr. Holm evidently patient had stress echo 2 years ago however he does not follow-up with the cardiology [facility] to discuss PCI of complex RCA with atherectomy and to be seen and evaluated by the bypass team as well for second opinion in regard to his LAD and diagonal lesions and the heavily calcified left coronary system. I discussed the cardiac care plan recommendation with the patient and the , in regard to the transfer and agree on the plan No complication in the [employer] PER Emilie Torres MD,[facility] 2. Hypertension - Blood pressure controlled, home medications continued with dose adjustment as needed 3. Dyslipidemia -Patient is on statin therapy, continued at home dose 4. Degenerative joint disease ?With history of lumbar laminectomy in 02/02/2021 5. Class I obesity ?With BMI of 31.3 ?Weight loss advised 6. DVT prophylaxis ?SC Lovenox Physical Exam Narrative GENERAL: cooperative HEENT: Atraumatic; EYES; Anicteric, Normal Conjunctiva NECK; supple, normal thyroid, RESPIRATORY: Diminished to auscultation CARDIOVASCULAR: Regular S1 S2, GI: soft, normoactive bowel sounds, : No Renal angle tenderness; EXTREMITIES: No edema, no clubbing, MUSCULOSKELETAL: no muscle wasting NEURO: Awake; no lateralizing signs. SKIN: No Rash PSYCH; Flat affect Weight / BMI Weight Weight: 104.598 kg Body Mass Index (BMI) 31.2 ABG / Lab / Microbiology Data Result Diagrams: 10/24/21 03:44 10/24/21 03:44 Laboratory: Laboratory Results - last 24 hr 10/24/21 03:44: WBC 5.7, RBC 4.11 L, Hgb 12.8 L, Hct 38.1 L, MCV 92.7, MCH 31.1, MCHC 33.6 D, RDW Std Deviation 41.4, RDW Coeff of Rosales 12.1, Plt Count 296, MPV 9.1, Immature Gran % (Auto) 0.700, Neut % (Auto) 47.8, Lymph % (Auto) 34.7, [place] % (Auto) 12.4 H, Eos % (Auto) 3.5, Baso % (Auto) 0.9, Absolute Neuts (auto) 2.7, Absolute Lymphs (auto) 1.98, Nucleated RBC % 0 10/24/21 03:44: Sodium 137, Potassium 4.0, Chloride 104, Carbon Dioxide 28.0, Anion Gap 5, BUN 21 H, Creatinine 1.06, Estim Creat Clear Calc 74.22, Est GFR (MDRD) Af Amer 90, Est GFR (MDRD) Non-Af 74, BUN/Creatinine Ratio 19.8, Glucose 102, Calcium 9.0 D/C Instructions Discharge Diet: No restrictions Discharge Activity: Return to Normal Activity Call your doctor if you observe: Fever of 101 or Higher, Shortness of breath, Fainting spells and Chest pain Meaningful Use Info Meaningful Use Diagnoses (Choose all that apply): None applicable Discharge Plan Admission Admit Date/Time: 10/23/21 08:55 Attending Provider: Jag Graham Primary Care Provider: Jarrod Elizabeth Consulting Providers: Emilie Torres Discharge Orders/Prescriptions Prescriptions: Continued hydrochlorothiazide 25 MG tablet 25 mg PO DAILY RF: 0 irbesartan [Avapro] 300 MG tablet 300 mg PO DAILY RF: 0 cholecalciferol (vitamin D3) [Vitamin D3] 1,000 UNIT capsule 1,000 unit PO DAILY RF: 0 aspirin 81 mg Capsule 81 mg PO DAILY RF: 0 Changed atorvastatin 20 MG tablet 80 mg PO QHS Qty: 0 RF: 0 Discontinued etodolac 400 mg tablet 400 mg PO BID RF: 0 Referrals / Follow Up: Emilie Torres MD [STAFF PHYSICIAN] - Within 2 Weeks Jarrod Elizabeth DO [Primary Care Provider] - Within 1 Week Disposition Disposition (needs filled in before D/C Order can be placed): [facility] Charges/Coding Visit Charges OBSV E&M: 42477 Observation care discharge
[2021-10-24] MEDS: hydroCHLOROthiazide 25 MG Tablet PO (17:07)
--- NOTE | 2021-10-24 18:59 | NURSING ---
report called to GERARD Giron at [facility] for transfer.
== END 2021-10-24 21:05 | disposition short-term general hospital (02) ==
LOC: ED 05:29 → PCU 09:12
PROVIDERS: Admitting Provider Internal Medicine; Emergency Provider Emergency Medicine; PCP Family Medicine; Visit Provider Internal Medicine
DX: I25.110 Atherosclerotic heart disease of native coronary artery with unstable angina pectoris (principal); F10.10 Alcohol abuse, uncomplicated; I10 Essential (primary) hypertension; R94.39 Abnormal result of other cardiovascular function study; E78.5 Hyperlipidemia, unspecified; Z87.891 Personal history of nicotine dependence; Z79.899 Other long term (current) drug therapy; Z79.82 Long term (current) use of aspirin; R00.1 Bradycardia, unspecified; M19.90 Unspecified osteoarthritis, unspecified site; E66.9 Obesity, unspecified; Z68.31 Body mass index [BMI] 31.0-31.9, adult
CPT/HCPCS: 36415; 71046; 78452; 80048; 83735; 84484; 85025; 93005; 93017; 93306; 93458; 96372; 99152; 99153; 99218; 99284; A9500; J7040; A4216; C1769; C1894; G0378; J2785; Q9967

== ENCOUNTER 2021-11-21 15:10 | Outpatient (CLI) | payer MEDICARE, SELFPAY ==
[2021-11-21 16:08] LABS: Absolute Lymphocyte Count 1.66 X10^3/uL (0.83-4.51); Absolute Neutrophil Count 2.5 X10^3/uL (2.0-7.7); Basophil# 0.04 X10^3/uL; Basophil% 0.8 % (0-1); Eosinophil# 0.24 X10^3/uL; Eosinophils% 4.7 % (0-5); Hematocrit 31.4 % (40-54); Hemoglobin 10.4 g/dL (13.0-16.5); Lymphocyte # 1.66 X10^3/ul (0.83-4.51); Lymphocyte % 32.5 % (19-41); Mean Corp Hgb Conc 33.1 g/dL (32-36); Mean Corpuscular Hgb 30.6 pg (27.0-32.0); Mean Corpuscular Volume 92.4 fL (80-94); Mean Platelet Vol. 8.7 fl (6.2-12.0); Monocyte# 0.59 X10^3/uL; Monocyte% 11.6 % (0-10); NRBC Flagged by Analyzer 0 % (0-5); Neutrophil # 2.53 X10^3/uL (2.7-7.7); Neutrophil % 49.6 % (47-70); Platelet Count 488 K/mm3 (150-450); RBC Distribution Width CV 12.9 % (11.6-14.6); RBC Distribution Width SD 43.6 fl (35.1-43.9); White Blood Count 5.1 K/mm3 (4.4-11.0)
[2021-11-21 16:29] LABS: Anion Gap 5 (5-15); BUN 19 mg/dL (7-18); BUN/Creat Ratio 19.7 RATIO (10-20); Calcium,Total 9.4 mg/dL (8.5-10.1); Chloride 108 mmol/L (98-107); Creatinine, Serum 0.96 mg/dL (0.70-1.30); EST Glomerular Filtration Rate 83 mL/min (>60); Est Glom Filt Rate - Afr Amer 100 mL/min (>60); Glucose 97 mg/dL (74-106); Magnesium 1.9 mg/dL (1.6-2.6); Potassium 3.9 mmol/L (3.5-5.1); Sodium Level 138 mmol/L (136-145)
== END 2021-11-21 23:59 | disposition home or self-care (01) ==
LOC: LAB 15:11
PROVIDERS: PCP Family Medicine; Referring Provider Internal Medicine Cardiovascular Disease; Visit Provider Internal Medicine Cardiovascular Disease
DX: I10 Essential (primary) hypertension (principal); E78.5 Hyperlipidemia, unspecified; Z95.1 Presence of aortocoronary bypass graft
CPT/HCPCS: 36415; 80048; 83735; 85025

== ENCOUNTER 2021-12-01 10:02 | Outpatient (CLI) | payer MEDICARE, SELFPAY ==
--- NOTE | 2021-12-01 10:09 | PCM.CR.HP2 ---
CR - History & Physical - General Arrival date:: 12/01/21 Arrival time:: 10:10 Date of Referral:: 11/21/21 Date of CR Evaluation:: 12/01/21 Referring Physician: Primary Diagnosis: S/P CABG - History of Present Cardiac Event Onset Date: Enter Onset Date of cardiac illnesses in Comment field below Coronary Artery Bypass Graft:: Yes - 10/27/2021 - Sleep Disorder Evaluation Hx of Sleep Apnea: No Do you snore loudly (louder than talking or can be heard through closed doors)?: Yes - pt declines sleep study Do you often feel tired/ fatigued/ sleepy during daytime?: No Has anyone observed you stop breathing during sleep?: No History of Hypertension (for STOP score): Yes STOP Results: Positive - Medications Home Medications: Ambulatory Orders Medication Instructions Recorded irbesartan [Avapro] 300 mg PO DAILY 09/18/13 cholecalciferol (vitamin D3) 1,000 unit PO DAILY 12/17/17 [Vitamin D3] aspirin 81 mg PO DAILY 10/23/21 atorvastatin 40 mg tablet 40 mg PO QHS #90 tab 11/21/21 metoprolol tartrate 25 mg tablet 25 mg PO BID #180 tab 11/21/21 clopidogrel 75 mg tablet 75 mg PO DAILY #90 tab 11/27/21 - Allergies Allergies/Adverse Reactions: Allergies acetaminophen [From Percocet] Adverse Reaction (Verified 10/23/21 05:14) Upset Stomach oxycodone [From Percocet] Adverse Reaction (Verified 10/23/21 05:14) Upset Stomach Advanced Directives - Advanced Directives 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 Living Will: Yes Advance Directives Information Provided: Yes Advance Directives on File: No - unsure DNR Order?:: No Past Medical History - Covid-19 Screening Fever: No Unexplained muscle aches: No Current respiratory symptoms: No Upper respiratory infections symptoms: No Gastro-intestinal symptoms: No Ymp-[id number] symptoms: No Has tested positive for COVID-19 in last 30 days: No Has High Risk Exposures ID'd by Health dept/Inf Control team: No Lives in Assisted Living facility:: No Has a chronic lung disease or moderate to severe asthma:: No Has a serious heart condition:: Yes Immunocompromised:: No Severely obese (Body Mass Index of 40 or higher):: No Diabetic:: No Has chronic kidney disease undergoing dialysis:: No Has liver disease:: No - Past Medical Illness Medical History: Past Medical History (Last Reviewed 11/21/21 @ 15:[address] Lionel Holm MD) ACS (acute coronary syndrome) I24.9 Alcohol abuse F10.10 42 beers a week Arthritis M19.90 Atherosclerotic heart disease of [place] coronary artery without angina pectoris I25.10 Back pain M54.9 lower back Essential hypertension I10 Former smoker Z87.891 Leg cramps R25.2 Lumbar disc disease with radiculopathy M51.16 Lumbar spondylosis M47.816 - Past Surgical History Surgical History: Past Surgical History (Last Reviewed 11/21/21 @ 15:[address] Lionel Holm MD) H/O coronary artery bypass surgery Z95.1 CABG X 5: COOK-LAD, SVG-D1, Sequential SVG-OM1 and LPLB, SVG-RPDA 10/27/2021 History of back surgery Z98.890 History of left heart catheterization Onset Date: 10/24/21 Z98.890 History of lumbar laminectomy Z98.890 History of tonsillectomy Z90.89 Hx laparoscopic cholecystectomy Z90.49 Hx of arthroscopic knee surgery Z98.890 left Hx of arthroscopic knee surgery Z98.890 right Hx of colonoscopy Z98.890 Hx of repair of right rotator cuff Z98.890 Hx of total knee arthroplasty Z96.659 bilat - Family History Summary Family History: Family History (Last Reviewed 11/21/21 @ 15:[address] Lionel Holm MD) Brother CAD (coronary artery disease) Social History - Smoking History Smoking Status: Former smoker Years Smokin Packs Smoked per Day: 1 Hx Smoking Cessation Date: 08/16/89 Hx Tobacco Use: Yes - Alcohol Use Alcohol Usage: Yes - pt stopped - Substance Abuse Hx Substance Use: No - Occupation Occupation (List type of work in comments):: Retired - Hobbies, Recreation, Social Activities Hobbies: Sports, Other Recreational Activities: I am able to engage in all my recreational activities Social Environment - Status Marital Status: - Current Living Arrangements Living Environment:: Spouse - Children How many children do you have?: 2 Do any of your children live nearby?: Yes - Safety Do you feel safe in your surroundings?: Yes - Assistance Do you need any assistance at home?: no Review of Systems - Review of Systems Hints: Right click = Denies ([place]). Left click = Reports ([place]) Review of Present Symptoms: Reports: Operative Discomfort - incisional discomfort, Appetite - Normal, Appetite - Special Diet. Denies: Shortness of Breath at Rest, Shortness of Breath with Exertion, PVD, Angina, Wound Healing, Dizziness/Lightheadedness, Fatigue, Heart Arrhythmia/Irregularities, Sleep - Normal, Sexual Changes - Pain Is Patient Pain Free?: Yes Risk Factor Assessment - Vital Signs Pulse Ox: 98 - Pulse Pulse Rate: 64 Pulse Rhythm: Regular - Hypertension Blood Pressure Sitting - Right Arm: 126/70 - Diabetes Nutrition Referral for Diabetes: No - Obesity Height: 6 ft Weight:: 99.79 kg Weight in Pounds: 220.0 lbs Body Mass Index (BMI): 29.8 Nutritional Referral for Obesity: No - Physical Inactivity Physical Inactivity: Reg Exercise 30 min/day - Risk Stratification Risk Guidelines: Moderate Risk: Risk Factor for Smoking, Risk Factor for Dyslipidemia, Risk Factor for Diabetes, Risk Factor for Obesity, Risk Factor for Hypertension, Risk Factor for Sedentary Lifestyle, Risk Factor for Depression - Family History Family History: Family History (Last Reviewed 11/21/21 @ 15:[address] Lionel Holm MD) Brother CAD (coronary artery disease) Motivation - Motivation to Participate On a scale of 1 to 10, how prepared are you to commit to attending program?: 10 What do you see as barriers to successfully being able to complete the program?: none What do you see as the benefits of succesfully completing the program? In other words, what do you hope to get out of participating in the program?: improved health and knowledge of cardiac disease Are there issues you are dealing with that will interfere with completing the program?: no Do you have a spouse or signficant other, family or friends who will help support you to complete the program?: yes
--- NOTE | 2021-12-01 10:10 | PCM.CR.ITP ---
Diagnosis - General Information Admitting Diagnosis: S/P CABG Personal Learning Style:: Audio/Visual Barriers to Learning: Vision Impairment Stage of change r/t lifestyle modifications:: Contemplation Gave educational material for:: Treating Heart Disease, Emotions & Heart Disease, Stress Management & Relaxation, Sleep Disorders & Heart Disease, How The Heart Works, What it means to have Heart Disease, How Coronary Artery Disease is Diagnosed, Heart Procedures, What Heart Medications Do, Risk Factors & Modifications, Living an Active Life, Nutrition - Education/Goals Cardiac Rehabilitation Goals: 1. Maintain the individual as the primary focus of care. 2. To improve the patient's quality of life. 3. Identification of cardiac risk factors and provide cardiac risk factor management. 4. Enhance the psychosocial status of the patient. 5. Reconditioning enough to allow the patient to resume customary activities. 6. Control symptoms of cardiac disease Personal Goals: Initial Assessment: Improve management of stress and emotions, Improve energy level, Participate in home exercise program, Get back to work, or to resume activities faster, Improve knowledge of cardiac disease, Improve muscle strength and endurance, Improve diet and eating habits (eat healthier), Control risk factors (learn risk factor modification), Other goal: Scale for measuring improvement of personal goals: Enter appropriate number in Comments. 2 = Unchanged. 3 = Slightly Better. 4 = Moderate Improvement. 5 = Met my Goal - Diagnosis & Disease Process Outcomes/Goals: Pt IDs own risk factors & lifestyle modifications by Session 10, Verbalizes symptoms of angina & response by session 3., Pt independently manages, Other Additional Outcomes/Goals: Plan/Interventions: Assist Pt to ID & engage in lifestyle modification to reduce CVD risk, Instruct on individual risk factors, Review symptoms of angina & emergency actions, Review secondary diagnosis & identify educational needs., Other see comment 30 day Reassessments:: Not Met 30 day Reassessments:: Not Met 30 day Reassessments:: Not Met 30 day Reassessments:: Not Met Final Reassessments:: Not Met - Safety Referral to Physical Therapy: No Referral to [facility] Case Management: No Fall Risk Assessed:: Yes Assistive Devices:: None Exercise - Initial Assessment - Visit Date of Eval: 12/01/21 - initial eval Mets: Pre-: >3 METS for 30 minutes by discharge, >5 METS for 30 minutes by discharge, >7 METS for 30 minutes by discharge, Unable to meet goal due to: (see comment below) - Physician Prescribed Exercise Modalities: Treadmill, Airdyne, NuStep, SciFit, Lateral [place] Frequency: 3x/week for 12 weeks [36 sessions] Intensity: 60-80% of age predicted maximum heart rate reserve Target Heart Rate:: 100-130 Resting Blood Pressure: 126/70 EKG Type: SR - Outcomes & Goals Goals:: Verbalizes understanding of THR, RPE & goal METS by session 6, Documents in home exercise log/reports 30 min aerobic 5 day/wk by DC, Demonstrates accurate pulse taking by DC, Other additional outcome/goals: see below - Intervention & Plan Exercise Program Goals: Instruct on personal THR & RPE, Instruct on MET level & personal MET goal, Show patient to take own pulse /validate performance until accurate, Instruct on home exercise, Other additional plan/int - Physical Activity Home Exercise Physical Activity - Home Exercise: Safe Exercise, Warm-up, Self-monitoring, Cool-Down, Home Exercise > 30 min Daily, Sitting Time <3 hours/daily - Outcomes & Goals Outcomes/Goals: Demonstrates correct Warm-up/exercise Cool-Down (S3) if = 2.5 METs, Verbalizes symptoms of exercise intolerance by Session 3 (S3), Demonstrate safe equipment use (S3) & follows exercise prescrition (6), Other: See below - Intervention & Plan Plan/Intervention: Instruct warm-up & cool-down if exercising at > 2 METs, Instruct on symptoms of exercise intolerance & actions to take, Instruct & monitor on saf, Assess intial functional capacity & safety risk, Other See below Nutrition - Initial Assessment - Program Goals Nutrition Program Goals: LDL <100 optimal. 100 - 129 Near optimal. 130 - 159 Borderline High. 160 - 189 High. Total Cholesterol <200 desirable. 200 - 239 Borderline High. >/= 240 High. HDL < 40 Low >/=60 High. Triglycerides <150 desirable. <199 optimal. VlDL 5 - 40. HgbA1C <7%. BMI <25 Patient has diagnosis of Hyperlipidemia (ICD E78)?: Yes - Visit Date of Assessment:: 12/01/21 - initial eval - Cholesterol/Lipids Determine presence & major risk factors that modify LDL goal: Cigarette smoking, Hypertension or hypertensive medication, Low HDL cholesterol <40 mg/dL*, Family history of premature CHD in Male < 55 years: female <65 yearsFa, Age men > 45 years; women >/= 55 years Outcomes/Goals: Pt IDs own risk factors & lifestyle modifications by Session 10, Verbalizes symptoms of angina & response by session 3., Pt independently manages, Other Additional Outcomes/Goals: Intervention/Plan: Advocate for lipid panel cholesterol medication if applicable, Instruct on personal lipid levels & lipid goals/NCEP guidelines, Instruct on cholesterol, Other additional plan/int Referral to dietitian:: No - Diabetes (Other Core Measures) Diabetes Type: Not Applicable - Weight Mgt (Other Care) Height: 6 ft Weight:: 99.79 kg BMI: 29.8 Outcomes/Goals: Pt sets, maintains & shows weight loss goal & trend during rehab, Other additional outcomes/goals Intervention/Plan: Instruct on ideal BMI & set weight loss goal w/patient, Assist pt to ID & incorporate diet changes for weight loss by S9, Refer to Structured Weight Loss program as appropriate, Encourage goal of using 250-300dcal per session for weight loss, Other additional plan/interventions - Healthy Eating Habits Will attend diet classes:: Yes Outcomes/Goals:: Consume diet rich in vegs,fruits,whole grain/high fiber,fish,lean meat, Limit sat/trans fats,cholesterol & added salts & sugars, Other additional outcome/goals: Intervention/Plan:: Assess current eating habits, Other Additional plan/interventions - Education Gave educational materials for:: Signs & symptoms of hypoglycemia, Signs & symptoms of hyperglycemia, Relate diabetes to coronary artery disease, Healthy eating Nutrition - 30-Day Assessment Nutrition - 60-Day Assessment Nutrition - 90-Day Assessment Nutrition - Final Assessment Medical - Initial Assessment - Visit Date of Eval: 12/01/21 - initial eval - Medication Compliance Preventative Medication(s):: Aspirin, Clopidogrel/P2Y12 inhibit, Statin/lipid, Beta jack H/O mental health issues: depression, anxiety, or addiction?: No Doesn?t believe in the benefits of treatment?: No Believes medications are unnecessary or harmful?: No Has a concern about medication side effects?: No Expresses concern over the cost of medications?: No Outcomes/Goals: Verbalizes medications,desired effect & common side effects @ DC, Pt self-reports following medication regimen, Keeps card in wallet w/medications listed by DC, Other additional outcome/goals: Interventions/plans: Instruct on medication effects & side effects, Review medication list w/patient every two weeks, Instruct importance of taking meds as ordered & assist problem solving, Other additional - Tobacco Use Tobacco Use: Non-smoker How long ago did you quit using tobacco products?: Greater than or equal to 6 months ago Do you use smokeless tobacco?: No Outcomes/Goals: Smoking cessation achieved or maintained by discharge, Identify aids/strategies for achieving smoking cessation by session 6, Other additional outcome/goals Interventions/plan: Instruct on effects of smoking & provide smoking cessation resource, Assist pt to set quit date & provide encouragement, Assist pt to develop strategies to achieve/maintain quit date, Assist pt w/nicotine replacement & medication for cessation success, Other additional plan/interventions - Hypertension Hypertension Diagnosis:: Hypertension ICD-10 I10 [place] [employer] Hypertension Guidelines: [place] [employer] Hypertension Guidelines. Normal BP Less than 120/80. Elevated BP 120/80. Hypertension Stage 1: BP 130-139/80-89. Hypertesnion Stage 2: BP 140 or higher/90 or higher. Hypertension Crisis: BP higher than 180/120 Outcomes/Goals: Able to verbalize/achieve optimal blood pressure <130/80, Incorporates diet changes & exercise for blood pressure control by DC, Other additional outcomes/goals Interventions/plan: Instruct on optimal blood pressure, hypertension & medications, Instruct on effects of sodium, alcohol, stress, exercise &hypertension, Other additional plan/interventions - Tobacco Cessation Referral Smoking Cessation Referral:: No Individual Education/Counseling:: No Education Schedule Given:: Yes Medical- 30-Day Assessment Medical- 60-Day Assessment Medical- 90-Day Assessment Medical - Final Assessment Psychosocial - Initial Assess - VIsit Date of Eval: 12/01/21 Not Applicable: No - Outcomes/Goals: See list Psychosocial Outcomes/Goals:: ID's personal stressors & 2 strategies to manage stress by discharge, Other Additional outcome/goals: - Intervention/Plan: See List Interventions/Plan:: Assess stressors,coping strategies & signs of derpression on admission, Instruct/assist pt to develop coping & personal stress Mgt strategies, Refer to Behavioral Health if appropriate, Refer to Physician if appropriate, Instruct patient to recognize signs & symptoms of depression, Instruct patient to recog, Other additional plan/intervention Psychosocial - 30-Day Assess Psychosocial - 60-Day Assess Psychosocial - 90-Day Assess Psychosocial - Final Assessmen Patient Health Questionnaire Initial Assessment 1. Little interest or pleasure in doing things: Not at all 2. Feeling down, depressed, or hopeless: Not at all 3. Trouble falling or staying asleep, or sleeping too much: Several days 4. Feeling tired or having little energy: Not at all 5. Poor appetite or overeating: Not at all 6. Feeling bad about yourself -- or that you are a failure or have let yourself or your family down: Several days 7. Trouble concentrating on things, such as reading the newspaper or watching television: Several days 8. Moving or speaking so slowly that other people could have noticed. Or the opposite - being so fidgety or restless that you have been moving around a lot more than usual: Not at all 9. Thoughts that you would be better off , or of hurting yourself in some way: Not at all How difficult have these problems made it for you to do your work, take care of things at home, or get along with other people?: Not difficult at all Total Score: 3 DOV-Q SV Test - Statements CAD is a disease of the arteries in the heart: False Examples of risk factors for heart disease: True Angina is chest pain or discomfort: True The benefits of resistance training include: True Eating more meat and dairy products: False Anti-platelet medications such as aspirin are important: True The only effective way to manage stress: False An exercise warm-up slowly increases heart rate: I Don't Know Prepared, processed foods usually have high sodium: True Depression is common after a heart attack: True The statin medications lower cholesterol: True To control blood pressure, lower the amount of sodium: True If someone gets chest discomfort during walking: False Transfats are partially hydrogenated vegetable oils: True Sleep apnea that is not treated increases the risk: I Don't Know To control cholesterol, one should become a vegetarian: False Someone knows if he/she is exercising at the right level: True Diabetes cannot be prevented with exercise & health eating: False Stress is a large risk for heart attack: True A diet that can help lower blood pressure is rich in: True - Total Score Total Correct Responses: 18 Self-Efficacy Initial Assessment We would like to know how confident you are in doing certain activities. Please select your confidence level for:: Select your confidence level for the following using the scale 1-10 where 1 is not at all confident and 10 is totally confident. Your score is the average of all 6 responses. Fatigue: How confident are you that you can keep the fatigue caused by your disease from interfering with the things you want to do? Select Number: 7 Physical Discomfort or Pain: How confident are you that you can keep the physical discomfort or pain of your disease from interfering with the things you want to do? Select Number: 9 Emotional Distress: How confident are you that you can keep the emotional distress caused by your disease from interfering with the things you want to do? Select Number: 6 Other Symptoms or Health Problems: How confident are you that you can keep other symptoms or health problems from interfering with the things you want to do? Select Number: 6 Different Tasks and Activities: How confident are you that you can do the different tasks and activities needed to manage your health condition so as to reduce your need to see a doctor? Select Number: 8 Medication: How confident are you that you can do things other than just taking medication to reduce how much your illness affects your everyday life? Select Number: 8 Total Score:: 7 Nutrition Survey - Nutrition Survey Initial Have you lost >10 lbs over the past 2 months without trying?: Yes Are you following a special diet at home for diabetes, low fat, or low salt?: Yes Are you interested in meeting with a dietitian for help understanding your diet?: Yes Do you eat less than 3 meals a day?: No Do you eat fatty meats (tapia, sausage, ribs, etc), fried foods, desserts, large amounts of salad dressings, margarine, butter, or cheese most days?: No Do you have food allergies? [Enter types in comment field]: No Do you eat in restaurants more than 3 times a week?: No Do you season food with salt, seasoning salt, or garlic salt?: No Do you used canned, boxed, frozen meals, or soups, seasoning packets?: No Total Score:: 3
[2021-12-01 11:03] VITALS: BP 126/70; PULSE 64; O2SAT 98; BMI 29.8
[2021-12-01 11:07] VITALS: BP 126/70; BMI 29.8
== END 2021-12-01 23:59 | disposition home or self-care (01) ==
LOC: CR 10:03
PROVIDERS: PCP Family Medicine; Referring Provider Internal Medicine Cardiovascular Disease; Visit Provider Internal Medicine Cardiovascular Disease
DX: Z95.1 Presence of aortocoronary bypass graft (principal)

== ENCOUNTER 2021-12-12 09:30 | Outpatient (RCR) | payer MEDICARE, SELFPAY | END 2021-12-13 23:59 | LOC: CR 09:30 | PROVIDERS: PCP Family Medicine; Visit Provider Internal Medicine Cardiovascular Disease | DX: I25.10 Atherosclerotic heart disease of native coronary artery without angina pectoris (principal); I10 Essential (primary) hypertension; E78.5 Hyperlipidemia, unspecified; F10.10 Alcohol abuse, uncomplicated; Z95.1 Presence of aortocoronary bypass graft | CPT/HCPCS: 93798 ==

== ENCOUNTER 2022-01-07 09:30 | Outpatient (RCR) | payer MEDICARE, SELFPAY ==
--- NOTE | 2021-12-31 14:23 | PCM.CR.ITP ---
Diagnosis Exercise - 30-day Assessment - Visit Date of Eval: 12/31/21 Session #:: 13 - Physician Prescribed Exercise Modalities: Treadmill, Airdyne, NuStep Frequency: 3x/week for 12 weeks [36 sessions] Intensity: 60-80% of age predicted maximum heart rate reserve Current METSs:: 6.0 Target Heart Rate:: 100-130 Current RPE:: 13-14 Maximum Excercise HR:: 111 Resting Blood Pressure: 110/74 Maximum Exercise Blood Pressure: 158/68 EKG Type: NSR to sinus tach with rare PAC Current Physical Activity or Exercising minutes: 35 - Outcomes & Goals Goals:: Verbalizes understanding of THR, RPE & goal METS by session 6, Documents in home exercise log/reports 30 min aerobic 5 day/wk by DC, Demonstrates accurate pulse taking by DC - Intervention & Plan Exercise Program Goals: Instruct on personal THR & RPE, Instruct on MET level & personal MET goal, Show patient to take own pulse /validate performance until accurate, Instruct on home exercise - 30-day Reassessments 30 day Reassessments:: Progressing - Physical Activity Home Exercise Physical Activity - Home Exercise: Safe Exercise, Warm-up, Self-monitoring, Cool-Down, Home Exercise > 30 min Daily, Sitting Time <3 hours/daily - Outcomes & Goals Outcomes/Goals: Demonstrates correct Warm-up/exercise Cool-Down (S3) if = 2.5 METs, Verbalizes symptoms of exercise intolerance by Session 3 (S3), Demonstrate safe equipment use (S3) & follows exercise prescrition (6) - Intervention & Plan Plan/Intervention: Instruct warm-up & cool-down if exercising at > 2 METs, Instruct on symptoms of exercise intolerance & actions to take, Instruct & monitor on saf, Assess intial functional capacity & safety risk - 30-day Reassessments 30 day Reassessments:: Progressing Nutrition - Initial Assessment Nutrition - 30-Day Assessment - Program Goals Nutrition Program Goals: LDL <100 optimal. 100 - 129 Near optimal. 130 - 159 Borderline High. 160 - 189 High. Total Cholesterol <200 desirable. 200 - 239 Borderline High. >/= 240 High. HDL < 40 Low >/=60 High. Triglycerides <150 desirable. <199 optimal. VlDL 5 - 40. HgbA1C <7%. BMI <25 Patient has diagnosis of Hyperlipidemia (ICD E78)?: Yes - Visit Date of Assessment:: 12/31/21 Session #:: 13 - Cholesterol/Lipids Triglycerides (mg/dL): 44 Total Cholesterol (mg/dL): 154 LDL Cholesterol (mg/dL): 84 HDL Cholesterol (mg/dL): 61 Determine presence & major risk factors that modify LDL goal: Hypertension or hypertensive medication, Low HDL cholesterol <40 mg/dL*, Family history of premature CHD in Male < 55 years: female <65 yearsFa, Age men > 45 years; women >/= 55 years Outcomes/Goals: Pt IDs own risk factors & lifestyle modifications by Session 10, Verbalizes symptoms of angina & response by session 3., Pt independently manages Intervention/Plan: Instruct on personal lipid levels & lipid goals/NCEP guidelines, Instruct on cholesterol Referral to dietitian:: Yes 30-day Reassessments:: Progressing - Diabetes (Other Core Measures) Diabetes Type: Not Applicable - Weight Mgt (Other Care) Not Applicable: Yes Height: 6 ft Weight:: 220 lb BMI: 29.8 Diagnosis Overweight/Obesity BMI> 30% ICD-10 E66: No Diagnosis High BMI/Morbid Obesity BMI> 35% ICD-10 Z68: No Outcomes/Goals: Pt sets, maintains & shows weight loss goal & trend during rehab Intervention/Plan: Instruct on ideal BMI & set weight loss goal w/patient, Assist pt to ID & incorporate diet changes for weight loss by S9, Encourage goal of using 250-300dcal per session for weight loss 30 day Reassessments:: Progressing - Healthy Eating Habits Will attend diet classes:: Yes Outcomes/Goals:: Consume diet rich in vegs,fruits,whole grain/high fiber,fish,lean meat, Limit sat/trans fats,cholesterol & added salts & sugars Intervention/Plan:: Assess current eating habits 30-day Reassessments:: Progressing - Education Gave educational materials for:: Healthy eating Nutrition - 60-Day Assessment Nutrition - 90-Day Assessment Nutrition - Final Assessment Medical - Initial Assessment Medical- 30-Day Assessment - Visit Date of Eval: 12/31/21 Session #:: 13 - Medication Compliance Preventative Medication(s):: Aspirin, Clopidogrel/P2Y12 inhibit, Statin/lipid, Beta jack H/O mental health issues: depression, anxiety, or addiction?: No Doesn?t believe in the benefits of treatment?: No Believes medications are unnecessary or harmful?: No Has a concern about medication side effects?: No Expresses concern over the cost of medications?: No Outcomes/Goals: Verbalizes medications,desired effect & common side effects @ DC, Pt self-reports following medication regimen, Keeps card in wallet w/medications listed by DC Interventions/plans: Instruct on medication effects & side effects, Review medication list w/patient every two weeks, Instruct importance of taking meds as ordered & assist problem solving 30-day Reassessments:: Progressing - Tobacco Use Tobacco Use: Non-smoker - Hypertension Resting Blood Pressure:: 110/74 [place] [employer] Hypertension Guidelines: [place] [employer] Hypertension Guidelines. Normal BP Less than 120/80. Elevated BP 120/80. Hypertension Stage 1: BP 130-139/80-89. Hypertesnion Stage 2: BP 140 or higher/90 or higher. Hypertension Crisis: BP higher than 180/120 Peak Exercise Blood Pressure:: 158/68 Outcomes/Goals: Able to verbalize/achieve optimal blood pressure <130/80, Incorporates diet changes & exercise for blood pressure control by DC Interventions/plan: Instruct on optimal blood pressure, hypertension & medications, Instruct on effects of sodium, alcohol, stress, exercise &hypertension 30 day Reassessments:: Progressing - Tobacco Cessation Referral Smoking Cessation Referral:: No Individual Education/Counseling:: No Education Schedule Given:: Yes Medical- 60-Day Assessment Medical- 90-Day Assessment Medical - Final Assessment Psychosocial - Initial Assess Psychosocial - 30-Day Assess - VIsit Date of Eval: 12/31/21 Session #:: 13 Not Applicable: Yes History of previous Mental disease:: No - Psychosocial Test Tool Used:: PHQ-9 Questionnaire phq-9 Severity: Severity. 1-4 Minimal Depression. 5-9 Mild Depression. 10-14 Moderate Depression. 15-19 Moderately Sever Depression. 20-27 Severe Depression. Rule: - Referral to Behavioral Health PS - Interventions: Yes Attend Stress Management Classes, No Referral to Behavioral Health if PHQ-9 score >9:, No Referral to [facility], No Referral to Physician if PHQ-9 if score is 5-9: - Outcomes/Goals: See list Psychosocial Outcomes/Goals:: ID's personal stressors & 2 strategies to manage stress by discharge - Intervention/Plan: See List Interventions/Plan:: Assess stressors,coping strategies & signs of derpression on admission, Instruct/assist pt to develop coping & personal stress Mgt strategies, Instruct patient to recognize signs & symptoms of depression, Instruct patient to recog - 30-day Reassessments: 30 day Reassessments:: Progressing Psychosocial - 60-Day Assess Psychosocial - 90-Day Assess Psychosocial - Final Assessmen Patient Health Questionnaire 30-Day Re-eval Assessment 1. Little interest or pleasure in doing things: Not at all 2. Feeling down, depressed, or hopeless: Not at all 3. Trouble falling or staying asleep, or sleeping too much: Several days 4. Feeling tired or having little energy: Several days 5. Poor appetite or overeating: Not at all 6. Feeling bad about yourself -- or that you are a failure or have let yourself or your family down: Not at all 7. Trouble concentrating on things, such as reading the newspaper or watching television: Not at all 8. Moving or speaking so slowly that other people could have noticed. Or the opposite - being so fidgety or restless that you have been moving around a lot more than usual: Not at all 9. Thoughts that you would be better off , or of hurting yourself in some way: Not at all How difficult have these problems made it for you to do your work, take care of things at home, or get along with other people?: Not difficult at all Total Score: 2 Self-Efficacy 30-Day Re-eval Assessment We would like to know how confident you are in doing certain activities. Please select your confidence level for:: Select your confidence level for the following using the scale 1-10 where 1 is not at all confident and 10 is totally confident. Your score is the average of all 6 responses. Fatigue: How confident are you that you can keep the fatigue caused by your disease from interfering with the things you want to do? Select Number: 8 Physical Discomfort or Pain: How confident are you that you can keep the physical discomfort or pain of your disease from interfering with the things you want to do? Select Number: 9 Emotional Distress: How confident are you that you can keep the emotional distress caused by your disease from interfering with the things you want to do? Select Number: 7 Other Symptoms or Health Problems: How confident are you that you can keep other symptoms or health problems from interfering with the things you want to do? Select Number: 8 Different Tasks and Activities: How confident are you that you can do the different tasks and activities needed to manage your health condition so as to reduce your need to see a doctor? Select Number: 8 Medication: How confident are you that you can do things other than just taking medication to reduce how much your illness affects your everyday life? Select Number: 8 Total Score:: 8 Nutrition Survey
[2021-12-31 14:31] VITALS: BP 110/74; BP 158/68; BMI 29.8
== END 2022-01-13 23:59 ==
LOC: CR 09:30
PROVIDERS: PCP Family Medicine; Referring Provider Internal Medicine Cardiovascular Disease; Visit Provider Internal Medicine Cardiovascular Disease
DX: I25.10 Atherosclerotic heart disease of native coronary artery without angina pectoris (principal); I10 Essential (primary) hypertension; E78.5 Hyperlipidemia, unspecified; F10.10 Alcohol abuse, uncomplicated; Z95.1 Presence of aortocoronary bypass graft
CPT/HCPCS: 93798

== ENCOUNTER 2022-02-11 09:30 | Outpatient (RCR) | payer MEDICARE, SELFPAY ==
[2021-12-31 14:31] VITALS: BMI 29.8
[2022-01-14 01:08] VITALS: BP 110/74; BP 158/68
--- NOTE | 2022-01-27 09:31 | CR.ITP_ITS ---
Diagnosis Exercise - 60-day Assessment - Visit Date of Eval: 01/27/22 Session #:: 22 - Physician Prescribed Exercise Modalities: Treadmill, Airdyne, NuStep Frequency: 3x/week for 12 weeks [36 sessions] Intensity: 60-80% of age predicted maximum heart rate reserve Current METSs:: 6.5 Target Heart Rate:: 100-130 Current RPE:: 13-14 Maximum Excercise HR:: 141 Resting Blood Pressure: 128/52 Maximum Exercise Blood Pressure: 154/66 EKG Type: Sinus rhythm to sinus tach with rare PAC and PVC Current Physical Activity or Exercising minutes: 35:16 - Outcomes & Goals Goals:: Verbalizes understanding of THR, RPE & goal METS by session 6, Documents in home exercise log/reports 30 min aerobic 5 day/wk by DC, Demonstrates accurate pulse taking by DC - Intervention & Plan Exercise Program Goals: Instruct on personal THR & RPE, Instruct on MET level & personal MET goal, Show patient to take own pulse /validate performance until accurate, Instruct on home exercise - 30-day Reassessments 30 day Reassessments:: Met - Physical Activity Home Exercise Physical Activity - Home Exercise: Safe Exercise, Warm-up, Self-monitoring, Cool-Down, Home Exercise > 30 min Daily, Sitting Time <3 hours/daily - Outcomes & Goals Outcomes/Goals: Demonstrates correct Warm-up/exercise Cool-Down (S3) if = 2.5 METs, Verbalizes symptoms of exercise intolerance by Session 3 (S3), Demonstrate safe equipment use (S3) & follows exercise prescrition (6) - Intervention & Plan Plan/Intervention: Instruct warm-up & cool-down if exercising at > 2 METs, Instruct on symptoms of exercise intolerance & actions to take, Instruct & monitor on saf, Assess intial functional capacity & safety risk - 30-day Reassessments 30 day Reassessments:: Met Nutrition - Initial Assessment Nutrition - 30-Day Assessment Nutrition - 60-Day Assessment - Program Goals Nutrition Program Goals: LDL <100 optimal. 100 - 129 Near optimal. 130 - 159 Borderline High. 160 - 189 High. Total Cholesterol <200 desirable. 200 - 239 Borderline High. >/= 240 High. HDL < 40 Low >/=60 High. Triglycerides <150 desirable. <199 optimal. VlDL 5 - 40. HgbA1C <7%. BMI <25 Patient has diagnosis of Hyperlipidemia (ICD E78)?: Yes - Visit Date of Assessment:: 01/27/22 Session #:: 22 - Cholesterol/Lipids Triglycerides (mg/dL): 44 - 06/17/20 Total Cholesterol (mg/dL): 154 LDL Cholesterol (mg/dL): 84 HDL Cholesterol (mg/dL): 61 Determine presence & major risk factors that modify LDL goal: Hypertension or hypertensive medication, Family history of premature CHD in Male < 55 years: female <65 yearsFa, Age men > 45 years; women >/= 55 years Outcomes/Goals: Pt IDs own risk factors & lifestyle modifications by Session 10, Verbalizes symptoms of angina & response by session 3., Pt independently manages Intervention/Plan: Instruct on personal lipid levels & lipid goals/NCEP guidelines, Instruct on cholesterol Referral to dietitian:: No 30-day Reassessments:: Met - Diabetes (Other Core Measures) Diabetes Type: Not Applicable - Weight Mgt (Other Care) Height: 6 ft Weight:: 221 lb BMI: 29.9 Diagnosis Overweight/Obesity BMI> 30% ICD-10 E66: No Diagnosis High BMI/Morbid Obesity BMI> 35% ICD-10 Z68: No Outcomes/Goals: Pt sets, maintains & shows weight loss goal & trend during rehab Intervention/Plan: Instruct on ideal BMI & set weight loss goal w/patient, Assist pt to ID & incorporate diet changes for weight loss by S9, Encourage goal of using 250-300dcal per session for weight loss 30 day Reassessments:: Progressing - Healthy Eating Habits Will attend diet classes:: Yes Outcomes/Goals:: Consume diet rich in vegs,fruits,whole grain/high fiber,fish,lean meat, Limit sat/trans fats,cholesterol & added salts & sugars Intervention/Plan:: Assess current eating habits 30-day Reassessments:: Progressing - Education Gave educational materials for:: Healthy eating Nutrition - 90-Day Assessment Nutrition - Final Assessment Medical - Initial Assessment Medical- 30-Day Assessment Medical- 60-Day Assessment - Visit Date of Eval: 01/27/22 Session #:: 22 - Medication Compliance Preventative Medication(s):: Aspirin, Clopidogrel/P2Y12 inhibit, Statin/lipid, Beta jack H/O mental health issues: depression, anxiety, or addiction?: No Doesn?t believe in the benefits of treatment?: No Believes medications are unnecessary or harmful?: No Has a concern about medication side effects?: No Expresses concern over the cost of medications?: No Outcomes/Goals: Verbalizes medications,desired effect & common side effects @ DC, Pt self-reports following medication regimen, Keeps card in wallet w/medications listed by DC Interventions/plans: Instruct on medication effects & side effects, Review medication list w/patient every two weeks, Instruct importance of taking meds as ordered & assist problem solving 30-day Reassessments:: Met - Tobacco Use Tobacco Use: Non-smoker - Hypertension Resting Blood Pressure:: 128/52 [place] [employer] Hypertension Guidelines: [place] [employer] Hypertension Guidelines. Normal BP Less than 120/80. Elevated BP 120/80. Hypertension Stage 1: BP 130-139/80-89. Hypertesnion Stage 2: BP 140 or higher/90 or higher. Hypertension Crisis: BP higher than 180/120 Peak Exercise Blood Pressure:: 154/66 Outcomes/Goals: Able to verbalize/achieve optimal blood pressure <130/80, Incorporates diet changes & exercise for blood pressure control by DC Interventions/plan: Instruct on optimal blood pressure, hypertension & medications, Instruct on effects of sodium, alcohol, stress, exercise &hypertension 30 day Reassessments:: Met - Tobacco Cessation Referral Smoking Cessation Referral:: No Individual Education/Counseling:: No Education Schedule Given:: Yes Medical- 90-Day Assessment Medical - Final Assessment Psychosocial - Initial Assess Psychosocial - 30-Day Assess Psychosocial - 60-Day Assess - VIsit Date of Eval: 01/27/22 Session #:: 22 Not Applicable: Yes - Psychosocial Test Tool Used:: PHQ-9 Questionnaire phq-9 Severity: Severity. 1-4 Minimal Depression. 5-9 Mild Depression. 10-14 Moderate Depression. 15-19 Moderately Sever Depression. 20-27 Severe Depression. Rule: - Referral to Behavioral Health PS - Interventions: No Referral to Behavioral Health if PHQ-9 score >9:, No Ref erral to [facility], No Referral to Physician if PHQ-9 if score is 5-9:, No Attend Stress Management Classes - Outcomes/Goals: See list Psychosocial Outcomes/Goals:: ID's personal stressors & 2 strategies to manage stress by discharge - Intervention/Plan: See List Interventions/Plan:: Assess stressors,coping strategies & signs of derpression on admission - 30-day Reassessments: 30 day Reassessments:: Met Psychosocial - 90-Day Assess Psychosocial - Final Assessmen Patient Health Questionnaire 60-Day Re-eval Assessment 1. Little interest or pleasure in doing things: Not at all 2. Feeling down, depressed, or hopeless: Not at all 3. Trouble falling or staying asleep, or sleeping too much: Not at all 4. Feeling tired or having little energy: Not at all 5. Poor appetite or overeating: Not at all 6. Feeling bad about yourself -- or that you are a failure or have let yourself or your family down: Not at all 7. Trouble concentrating on things, such as reading the newspaper or watching television: Not at all 8. Moving or speaking so slowly that other people could have noticed. Or the opposite - being so fidgety or restless that you have been moving around a lot more than usual: Not at all 9. Thoughts that you would be better off , or of hurting yourself in some way: Not at all How difficult have these problems made it for you to do your work, take care of things at home, or get along with other people?: Not difficult at all Total Score: 0 Self-Efficacy 60-Day Re-eval Assessment We would like to know how confident you are in doing certain activities. Please select your confidence level for:: Select your confidence level for the following using the scale 1-10 where 1 is not at all confident and 10 is totally confident. Your score is the average of all 6 responses. Fatigue: How confident are you that you can keep the fatigue caused by your disease from interfering with the things you want to do? Select Number: 10 Physical Discomfort or Pain: How confident are you that you can keep the physical discomfort or pain of your disease from interfering with the things you want to do? Select Number: 10 Emotional Distress: How confident are you that you can keep the emotional distress caused by your disease from interfering with the things you want to do? Select Number: 10 Other Symptoms or Health Problems: How confident are you that you can keep other symptoms or health problems from interfering with the things you want to do? Select Number: 10 Different Tasks and Activities: How confident are you that you can do the different tasks and activities needed to manage your health condition so as to reduce your need to see a doctor? Select Number: 10 Medication: How confident are you that you can do things other than just taking medication to reduce how much your illness affects your everyday life? Select Number: 10 Total Score:: 10 Nutrition Survey
[2022-01-27 09:37] VITALS: BP 128/52; BP 154/66; BMI 29.9
== END 2022-02-12 23:59 ==
LOC: CR 09:30
PROVIDERS: PCP Family Medicine; Referring Provider Internal Medicine Cardiovascular Disease; Visit Provider Internal Medicine Cardiovascular Disease
DX: I25.10 Atherosclerotic heart disease of native coronary artery without angina pectoris (principal); I10 Essential (primary) hypertension; E78.5 Hyperlipidemia, unspecified; F10.10 Alcohol abuse, uncomplicated; Z95.1 Presence of aortocoronary bypass graft
CPT/HCPCS: 93798

== ENCOUNTER 2022-03-04 09:30 | Outpatient (RCR) | payer MEDICARE, SELFPAY ==
[2022-01-27 09:37] VITALS: BMI 29.9
[2022-02-13 00:39] VITALS: BP 128/52; BP 154/66
--- NOTE | 2022-02-25 08:44 | PCM.CR.ITP ---
Diagnosis Exercise - Final/Discharge - Visit Date of Eval: 02/25/22 Session #:: 32 - Physician Prescribed Exercise Modalities: Treadmill, Airdyne, NuStep Frequency: 3x/week for 12 weeks [36 sessions] Intensity: 60-80% of age predicted maximum heart rate reserve Current METSs:: 6.5 Target Heart Rate:: 100-130 Current RPE:: 13-14 Maximum Excercise HR:: 129 Resting Blood Pressure: 132/70 Maximum Exercise Blood Pressure: 172/88 EKG Type: NSR to sinus tach w/rare PACs Current Physical Activity or Exercising minutes: 39:28 - Outcomes & Goals Goals:: Verbalizes understanding of THR, RPE & goal METS by session 6, Documents in home exercise log/reports 30 min aerobic 5 day/wk by DC, Demonstrates accurate pulse taking by DC - Intervention & Plan Exercise Program Goals: Instruct on personal THR & RPE, Instruct on MET level & personal MET goal, Show patient to take own pulse /validate performance until accurate, Instruct on home exercise - 30-day Reassessments 30 day Reassessments:: Met - Physical Activity Home Exercise Physical Activity - Home Exercise: Safe Exercise, Warm-up, Self-monitoring, Cool-Down, Home Exercise > 30 min Daily, Sitting Time <3 hours/daily - Outcomes & Goals Outcomes/Goals: Demonstrates correct Warm-up/exercise Cool-Down (S3) if = 2.5 METs, Verbalizes symptoms of exercise intolerance by Session 3 (S3), Demonstrate safe equipment use (S3) & follows exercise prescrition (6) - Intervention & Plan Plan/Intervention: Instruct warm-up & cool-down if exercising at > 2 METs, Instruct on symptoms of exercise intolerance & actions to take, Instruct & monitor on saf, Assess intial functional capacity & safety risk - 30-day Reassessments 30 day Reassessments:: Met Nutrition - Initial Assessment Nutrition - 30-Day Assessment Nutrition - 60-Day Assessment Nutrition - 90-Day Assessment Nutrition - Final Assessment - Program Goals Nutrition Program Goals: LDL <100 optimal. 100 - 129 Near optimal. 130 - 159 Borderline High. 160 - 189 High. Total Cholesterol <200 desirable. 200 - 239 Borderline High. >/= 240 High. HDL < 40 Low >/=60 High. Triglycerides <150 desirable. <199 optimal. VlDL 5 - 40. HgbA1C <7%. BMI <25 Patient has diagnosis of Hyperlipidemia (ICD E78)?: Yes - Visit Date of Assessment:: 02/25/22 Session #:: 31 - no recent labs available - Cholesterol/Lipids Determine presence & major risk factors that modify LDL goal: Hypertension or hypertensive medication, Family history of premature CHD in Male < 55 years: female <65 yearsFa, Age men > 45 years; women >/= 55 years Outcomes/Goals: Pt IDs own risk factors & lifestyle modifications by Session 10, Verbalizes symptoms of angina & response by session 3., Pt independently manages Intervention/Plan: Instruct on personal lipid levels & lipid goals/NCEP guidelines, Instruct on cholesterol 30-day Reassessments:: Met - Diabetes (Other Core Measures) Diabetes Type: Not Applicable - Weight Mgt (Other Care) Not Applicable: Yes Height: 6 ft Weight:: 217 lb BMI: 29.4 Diagnosis Overweight/Obesity BMI> 30% ICD-10 E66: No Diagnosis High BMI/Morbid Obesity BMI> 35% ICD-10 Z68: No Outcomes/Goals: Pt sets, maintains & shows weight loss goal & trend during rehab Intervention/Plan: Instruct on ideal BMI & set weight loss goal w/patient, Assist pt to ID & incorporate diet changes for weight loss by S9, Encourage goal of using 250-300dcal per session for weight loss 30 day Reassessments:: Progressing - Healthy Eating Habits Will attend diet classes:: Yes Outcomes/Goals:: Consume diet rich in vegs,fruits,whole grain/high fiber,fish,lean meat, Limit sat/trans fats,cholesterol & added salts & sugars Intervention/Plan:: Assess current eating habits 30-day Reassessments:: Met - Education Gave educational materials for:: Healthy eating Medical - Initial Assessment Medical- 30-Day Assessment Medical- 60-Day Assessment Medical- 90-Day Assessment Medical - Final Assessment - Visit Date of Eval: 02/25/22 Session #:: 31 - Medication Compliance Preventative Medication(s):: Aspirin, Clopidogrel/P2Y12 inhibit, Statin/lipid, Beta jack H/O mental health issues: depression, anxiety, or addiction?: No Doesn?t believe in the benefits of treatment?: No Believes medications are unnecessary or harmful?: No Has a concern about medication side effects?: No Expresses concern over the cost of medications?: No Outcomes/Goals: Verbalizes medications,desired effect & common side effects @ DC, Pt self-reports following medication regimen, Keeps card in wallet w/medications listed by DC Interventions/plans: Instruct on medication effects & side effects, Review medication list w/patient every two weeks, Instruct importance of taking meds as ordered & assist problem solving 30-day Reassessments:: Met - Tobacco Use Tobacco Use: Non-smoker - Hypertension Hypertension Diagnosis:: Hypertension ICD-10 I10 Resting Blood Pressure:: 118/70 [employer] Hypertension Guidelines: [place] [employer] Hypertension Guidelines. Normal BP Less than 120/80. Elevated BP 120/80. Hypertension Stage 1: BP 130-139/80-89. Hypertesnion Stage 2: BP 140 or higher/90 or higher. Hypertension Crisis: BP higher than 180/120 Peak Exercise Blood Pressure:: 166/82 Outcomes/Goals: Able to verbalize/achieve optimal blood pressure <130/80, Incorporates diet changes & exercise for blood pressure control by DC Interventions/plan: Instruct on optimal blood pressure, hypertension & medications, Instruct on effects of sodium, alcohol, stress, exercise &hypertension 30 day Reassessments:: Met - Tobacco Cessation Referral Smoking Cessation Referral:: No Individual Education/Counseling:: No Education Schedule Given:: Yes Psychosocial - Initial Assess Psychosocial - 30-Day Assess Psychosocial - 60-Day Assess Psychosocial - 90-Day Assess Psychosocial - Final Assessmen - VIsit Date of Eval: 02/25/22 Session #:: 31 Not Applicable: Yes History of previous Mental disease:: No - Psychosocial Test Tool Used:: PHQ-9 Questionnaire phq-9 Severity: Severity. 1-4 Minimal Depression. 5-9 Mild Depression. 10-14 Moderate Depression. 15-19 Moderately Sever Depression. 20-27 Severe Depression. Rule: - Referral to Behavioral Health PS - Interventions: Yes Attend Stress Management Classes, No Referral to Behavioral Health if PHQ-9 score >9:, No Referral to [facility], No Referral to Physician if PHQ-9 if score is 5-9: - Outcomes/Goals: See list Psychosocial Outcomes/Goals:: ID's personal stressors & 2 strategies to manage stress by discharge - Intervention/Plan: See List Interventions/Plan:: Assess stressors,coping strategies & signs of derpression on admission, Instruct/assist pt to develop coping & personal stress Mgt strategies, Instruct patient to recognize signs & symptoms of depression, Instruct patient to recog - 30-day Reassessments: 30 day Reassessments:: Met Patient Health Questionnaire Discharge Assessment 1. Little interest or pleasure in doing things: Not at all 2. Feeling down, depressed, or hopeless: Not at all 3. Trouble falling or staying asleep, or sleeping too much: Not at all 4. Feeling tired or having little energy: Not at all 5. Poor appetite or overeating: Not at all 6. Feeling bad about yourself -- or that you are a failure or have let yourself or your family down: Not at all 7. Trouble concentrating on things, such as reading the newspaper or watching television: Not at all 8. Moving or speaking so slowly that other people could have noticed. Or the opposite - being so fidgety or restless that you have been moving around a lot more than usual: Not at all 9. Thoughts that you would be better off , or of hurting yourself in some way: Not at all Total Score: 0 Self-Efficacy Discharge Assessment We would like to know how confident you are in doing certain activities. Please select your confidence level for:: Select your confidence level for the following using the scale 1-10 where 1 is not at all confident and 10 is totally confident. Your score is the average of all 6 responses. Fatigue: How confident are you that you can keep the fatigue caused by your disease from interfering with the things you want to do? Select Number: 10 Physical Discomfort or Pain: How confident are you that you can keep the physical discomfort or pain of your disease from interfering with the things you want to do? Select Number: 10 Emotional Distress: How confident are you that you can keep the emotional distress caused by your disease from interfering with the things you want to do? Select Number: 10 Other Symptoms or Health Problems: How confident are you that you can keep other symptoms or health problems from interfering with the things you want to do? Select Number: 10 Different Tasks and Activities: How confident are you that you can do the different tasks and activities needed to manage your health condition so as to reduce your need to see a doctor? Select Number: 10 Medication: How confident are you that you can do things other than just taking medication to reduce how much your illness affects your everyday life? Select Number: 10 Total Score:: 10 Nutrition Survey
[2022-02-25 09:01] VITALS: BP 118/70; BP 132/70; BP 166/82; BMI 29.4
== END 2022-03-15 23:59 ==
LOC: CR 09:30
PROVIDERS: PCP Family Medicine; Referring Provider Internal Medicine Cardiovascular Disease; Visit Provider Internal Medicine Cardiovascular Disease
DX: I25.10 Atherosclerotic heart disease of native coronary artery without angina pectoris (principal); I10 Essential (primary) hypertension; E78.5 Hyperlipidemia, unspecified; F10.10 Alcohol abuse, uncomplicated; Z95.1 Presence of aortocoronary bypass graft
CPT/HCPCS: 93798

== ENCOUNTER → 2022-03-04 | Outpatient (CLI) | payer MEDICARE, SELFPAY ==
[2022-02-25 09:01] VITALS: BMI 29.4
[2022-03-04 08:41] LABS: Absolute Lymphocyte Count 1.97 X10^3/uL (0.83-4.51); Basophil# 0.06 X10^3/uL; Eosinophil# 0.28 X10^3/uL; Eosinophils% 4.6 % (0-5); Hematocrit 40.7 % (40-54); Hemoglobin 13.6 g/dL (13.0-16.5); Lymphocyte # 1.97 X10^3/ul (0.83-4.51); Lymphocyte % 32.7 % (19-41); Mean Corp Hgb Conc 33.4 g/dL (32-36); Mean Corpuscular Hgb 29.8 pg (27.0-32.0); Mean Corpuscular Volume 89.3 fL (80-94); Mean Platelet Vol. 8.9 fl (6.2-12.0); Monocyte% 11.6 % (0-10); NRBC Flagged by Analyzer 0 % (0-5); Neutrophil % 49.8 % (47-70); Platelet Count 324 K/mm3 (150-450); RBC Distribution Width CV 14.3 % (11.6-14.6); RBC Distribution Width SD 46.5 fl (35.1-43.9); Red Blood Count 4.56 M/mm3 (4.6-6.2)
[2022-03-04 09:16] LABS: Vitamin B12 355 pg/mL (211-911)
== END | disposition home or self-care (01) ==
LOC: LAB 08:13
PROVIDERS: PCP Family Medicine; Referring Provider Family Medicine; Visit Provider Family Medicine
DX: D64.9 Anemia, unspecified (principal)
CPT/HCPCS: 36415; 82607; 82746; 85025

== ENCOUNTER 2023-02-09 08:20 | Day surgery (SDC) | payer MEDICARE, SELFPAY ==
[2022-03-23 09:14] VITALS: BMI 29.4
[2023-02-09] VITALS (8 sets, daily range): BP systolic 76–113; BP diastolic 57–82; PULSE 55–81; RESP 14–16; TEMP 36.2–36.4; O2SAT 96–100; BMI 29.2
--- NOTE | 2023-02-09 08:29 | PCM.HP.BLA ---
History and Physical Date of Admission: 02/09/23 Visit Reasons:?COLONOSCOPY Chief Complaint: colonoscopy Is patient in pain?: No Allergies acetaminophen [From Percocet] Adverse Reaction (Verified 12/28/22 09:32) Upset Stomachatorvastatin Adverse Reaction (Verified 12/28/22 09:32) myalgiasoxycodone [From Percocet] Adverse Reaction (Verified 12/28/22 09:32) Upset Stomach Medications irbesartan 300 mg tablet (Avapro) 300 mg PO DAILY 09/18/13 [History Confirmed 12/28/22] cholecalciferol (vitamin D3) 25 mcg (1,000 unit) capsule (Vitamin D3) 1,000 unit PO DAILY 12/17/17 [History Confirmed 12/28/22] aspirin 81 mg capsule 81 mg PO DAILY 10/23/21 [History Confirmed 12/28/22] rosuvastatin 20 mg tablet (Crestor) 20 mg PO DAILY 03/03/22 [History Confirmed 12/28/22] clopidogrel 75 mg tablet 75 mg PO DAILY #90 tabs 09/30/22 [Rx Confirmed 12/28/22] metoprolol tartrate 25 mg tablet 25 mg PO BID #180 tabs 09/30/22 [Rx Confirmed 12/28/22] PFSH Medical History?(Reviewed 03/23/22 @ 08:45 by David Zhou ASSESSMENT NURSE PRACTITIONER, ASSESSMENT NURSE PRACTITIONER-C) ACS (acute coronary syndrome) Alcohol abuse Arthritis Atherosclerotic heart disease of [place] coronary artery without angina pectoris Back pain Essential hypertension Former smoker Leg cramps Lumbar disc disease with radiculopathy Lumbar spondylosis Surgical History?(Reviewed 03/23/22 @ 08:45 by David Zhou ASSESSMENT NURSE PRACTITIONER, ASSESSMENT NURSE PRACTITIONER-C) H/O coronary artery bypass surgery History of back surgery History of left heart catheterization (10/24/21) History of lumbar laminectomy History of tonsillectomy Hx laparoscopic cholecystectomy Hx of arthroscopic knee surgery Hx of arthroscopic knee surgery Hx of colonoscopy Hx of repair of right rotator cuff Hx of total knee arthroplasty Family History?(Updated 03/23/22 @ 08:47 by David Zhou ASSESSMENT NURSE PRACTITIONER, ASSESSMENT NURSE PRACTITIONER-C) Brother CAD (coronary artery disease) ?? ? [place]- age 78Mother CVA (cerebral vascular accident)Father CAD (coronary artery disease) ?? ? CABG- 50-60s Social History? Smoking Status:? Former smoker alcohol intake:? current HPI HPI HPI: 67-year-old gentleman.? December 24, 2017 I assisted him with a colonoscopy.? There was mucosal congestion the ascending: A small sessile polyp in the descending with diverticular disease and a very tortuous colon.? The patient most recently October 27, 2021 had coronary bypass grafting x5.? Is on low-dose aspirin therapy and Plavix. The patient states that the noted diffuse coronary disease and were able to bypass what occurred.? Previously he had been having severe indigestion he thought he was taking multiple forms but actually that was cardiac disease.? He states that the indigestion symptoms that he had resolved with the surgical procedure. He is able to climb a flight of stairs.? He walks on a treadmill 4 days a week for 30 minutes.? He is having some temporary right knee problems.? No abdominal pain.? No bright red blood per rectum or melena.? No unexpected weight loss. He does demonstrate to me that he has diastases recti ROS General General: No weight change, appetite, fatigue, colon cancer, breast cancer or weakness HEENT HEENT: No difficulty swallowing, eye injury, eye surgery, swollen glands or hoarseness Endo Endocrine: No thyroid disease, diabetes mellitus, thyroid cancer, Hair loss, heat intolerance or cold intolerance Skin Skin: Yes rash and changing moles Musc Musculoskeletal: Yes back problems and arthritis; No rheumatoid arthritis, gout or joint pain Cardio Cardiovascular: Yes heart disease and high blood pressure; No murmur, pacemaker, atrial fibrillation, heart attack, heart stent, palpitations, shortness of breat with exertion or chest pain Psych Psychiatric: No depression, anxiety or hearing voices Resp Respiratory: No shortness of breath, No sleep apnea, No cough, No COPD, No asthma, No emphysema and No wheezing Gastro Gastrointestinal: No abdominal pain, No nausea or vomiting, Yes diarrhea, No constipation, No blood in stool, No acid reflux, No hemorrhoids, No ulcers, No gallbladder problem and No black,tarry stools Shivam Hematologic: Yes blood thinners, No blood disorders, No bleeding, No anemia and No blood clots Neuro Neurologic: No system reviewed and no additional complaints, except as documented, No as per HPI, No abnormal gait, No abnormal hearing, No abnormal movements, No abnormal speech, No behavioral changes, No burning sensations, No confusion, No convulsions, No disequilibrium, No dizziness, No localized weakness, No frequent falls, No headache(s), No lack of coordination, No loss of vision, No memory loss, No numbness, No other visual disturbances, No radicular pain, No restless legs, No sensory deficit, No syncope, No tingling, No tremor(s), No weakness and No other Exam Const General: cooperative, healthy appearing, comfortable and no acute distress [facility] Head: normal to inspection Neck Neck: normal visual inspection Chest Chest palpation & inspection: normal inspection of the chest Resp Effort & Inspection: normal respiratory effort Cardio Rate: regular rate Rhythm: regular rhythm GI Palpation: soft and no hepatosplenomegaly Other: Diastases recti noted Skin General: no rashes or lesions noted Neuro General: patient alert, patient awake and patient oriented x3 Extrem Other: Nonpitting mild right lower extremity swelling as compared to the left Psych Appearance: grossly normal Assessment and Plan Assessment and Plan (1) Personal history of colonic polyps: ?Status:?Acute ?Plan: I recommended the patient a colonoscopy with possible biopsy or polypectomy as indicated.? He will remain on his low-dose aspirin.? I will have him hold his Plavix 2 days preprocedure.? I anticipate monitored anesthesia care.? I anticipate utilization of an adult scope as his previous procedure demonstrated tortuous bowel.? He has had an opportunity to ask and have questions answered.? We will schedule procedure at his discretion. Copy: Dr. Jarrod Elizabeth and Dr. [place] Daryl Delgado M.D., F.A.C.S I have examined the patient and the H&P has been reviewed. There are no clinical changes since date of exam. Daryl Delgado M.D., F.A.C.S.
[2023-02-09] MEDS: Lactated Ringers 1,000 ML 15 ML IV (08:38)
--- NOTE | 2023-02-09 09:43 | OP.COLON_ITS ---
Patient Name: Eric Gonzalez Procedure Date: 02/09/2023 9:12 AM Date of : 1955 Age: 67 Procedure: Colonoscopy Indications: High risk colon cancer surveillance: Personal history of colonic polyps Providers: Daryl Delgado MD Referring MD: Daryl Delgado MD Medicines: General Anesthesia Patient Profile: Last Colonoscopy: December 2017. Complications: No immediate complications. Procedure: Pre-Anesthesia Assessment: - Prior to the procedure, a History and Physical was performed, and patient medications and allergies were reviewed. The patient's tolerance of previous anesthesia was also reviewed. The risks and benefits of the procedure and the sedation options and risks were discussed with the patient. All questions were answered, and informed consent was obtained. Prior Anticoagulants: The patient has taken no previous anticoagulant or antiplatelet agents. ASA Grade Assessment: II - A patient with mild systemic disease. After reviewing the risks and benefits, the patient was deemed in satisfactory condition to undergo the procedure. After I obtained informed consent, the scope was passed under direct vision. Throughout the procedure, the patient's blood pressure, pulse, and oxygen saturations were monitored continuously. The adult colonoscope was introduced through the anus and advanced to the cecum, identified by appendiceal orifice and ileocecal valve. The colonoscopy was performed without difficulty. The patient tolerated the procedure well. The quality of the bowel preparation was good. The ileocecal valve and the appendiceal orifice were photographed. Scope In: 9:18:25 AM Scope Withdrawal Time 0 hours 8 minutes 20 seconds Scope Out: 9:36:37 AM Total Procedure Duration Time 0 hours 18 minutes 12 seconds Findings: The digital rectal exam findings include non-thrombosed external hemorrhoids, non-thrombosed internal hemorrhoids, internal hemorrhoids that prolapse with straining, but spontaneously regress to the resting position (Grade II) and enlarged prostate. Multiple diverticula were found in the sigmoid colon and descending colon. The colon (entire examined portion) was moderately tortuous. Advancing the scope required using manual pressure. Impression: - Non-thrombosed external hemorrhoids, non-thrombosed internal hemorrhoids, internal hemorrhoids that prolapse with straining, but spontaneously regress to the resting position (Grade II) and enlarged prostate found on digital rectal exam. - Diverticulosis in the sigmoid colon and in the descending colon. - Tortuous colon. - No specimens collected. Recommendation: - Discharge patient to home. - Resume previous diet. - Continue present medications. - Repeat colonoscopy in 5 years for surveillance. Images of cecum failed to capture but I had assured visualization Procedure Code(s): --- Professional --- 78572, Colonoscopy, flexible; diagnostic, including collection of specimen(s) by brushing or washing, when performed (separate procedure) Diagnosis Code(s): --- Professional --- Z86.010, Personal history of colonic polyps K64.1, Second degree hemorrhoids K64.4, Residual hemorrhoidal skin tags N40.0, Benign prostatic hyperplasia without lower urinary tract symptoms K57.30, Diverticulosis of large intestine without perforation or abscess without bleeding Q43.8, Other specified congenital malformations of intestine CPT copyright 2017 [employer]. All rights reserved. The codes documented in this report are preliminary and upon mechanical detailer review may be revised to meet current compliance requirements. Daryl Delgado MD 02/09/2023 9:43:21 AM This report has been signed electronically. Number of Addenda: 0 Note Initiated On: 02/09/2023 9:12 AM
--- NOTE | 2023-02-09 09:44 | OP.CCLET_ITS ---
02/09/2023 Jarrod Elizabeth [address] [facility] [place] [address] Re : Colonoscopy procedure for Eric Gonzalez Dear Dr. Elizabeth This procedure was performed on Thursday, February 09, 2023. My impressions and recommendations are as follows: Impressions : - Non-thrombosed external hemorrhoids, non-thrombosed internal hemorrhoids, internal hemorrhoids that prolapse with straining, but spontaneously regress to the resting position (Grade II) and enlarged prostate found on digital rectal exam. - Diverticulosis in the sigmoid colon and in the descending colon. - Tortuous colon. - No specimens collected. Recommendations : - Discharge patient to home. - Resume previous diet. - Continue present medications. - Repeat colonoscopy in 5 years for surveillance. Images of cecum failed to capture but I had assured visualization My findings are described in the full procedure note, which is enclosed. If I can be of further assistance, please feel free to contact me at Doctor phone number(s): Work: . Sincerely, Daryl Delgado MD 02/09/2023 9:43:21 AM This report has been signed electronically.
== END 2023-02-09 10:38 | disposition home or self-care (01) ==
LOC: EN 08:20 → AC 08:21
PROVIDERS: PCP Family Medicine; Referring Provider Surgery; Visit Provider Surgery
PROC: 0DJD8ZZ Inspection of Lower Intestinal Tract, Via Natural or Artificial Opening Endoscopic (ICD-10-PCS; CPT 45378; principal; 2023-02-09 09:25)
DX: K57.30 Diverticulosis of large intestine without perforation or abscess without bleeding (principal); N40.0 Benign prostatic hyperplasia without lower urinary tract symptoms; K64.1 Second degree hemorrhoids; K64.4 Residual hemorrhoidal skin tags; I10 Essential (primary) hypertension; E78.00 Pure hypercholesterolemia, unspecified; Z87.891 Personal history of nicotine dependence; Z95.1 Presence of aortocoronary bypass graft; Z86.010 Personal history of colon polyps; Z79.899 Other long term (current) drug therapy; Z79.82 Long term (current) use of aspirin
CPT/HCPCS: 45378; J7120

== ENCOUNTER → 2023-05-20 | Outpatient (CLI) | payer MEDICARE, SELFPAY ==
[2022-03-23 09:14] VITALS: BMI 29.4
[2023-05-20 13:37] LABS: AST(SGOT) 34 U/L (15-37); Alanine Aminotransfer ALT/SGPT 45 U/L (16-61); Albumin, Serum 4.2 g/dL (3.2-5.0); Alkaline Phosphatase 92 U/L (45-117); Anion Gap 6 (5-15); BUN 11 mg/dL (7-18); Calcium,Total 9.3 mg/dL (8.5-10.1); Chloride 105 mmol/L (98-107); Cholesterol 167 mg/dL (200); EST Glomerular Filtration Rate 71 mL/min (>60); Est Glom Filt Rate - Afr Amer 85 mL/min (>60); Globulin 3.6 g/dL (2.2-4.2); Glucose 100 mg/dL (74-106); High Density Lipoprotein 66 mg/dL; Potassium 4.1 mmol/L (3.5-5.1); Protein, Total 7.8 g/dL (6.4-8.2); Sodium Level 136 mmol/L (136-145); Triglycerides 49 mg/dL; Very Low Density Lipoprotein 10 mg/dL (5-40)
== END | disposition home or self-care (01) ==
LOC: LAB 11:51
PROVIDERS: PCP Family Medicine; Referring Provider Internal Medicine Cardiovascular Disease; Visit Provider Internal Medicine Cardiovascular Disease
DX: E78.5 Hyperlipidemia, unspecified (principal); Z95.1 Presence of aortocoronary bypass graft
CPT/HCPCS: 36415; 80048; 80061; 80076

== ENCOUNTER 2023-05-21 06:34 | Emergency (ER) | payer MEDICARE, SELFPAY ==
[2022-03-23 09:14] VITALS: BMI 29.4
[2023-05-21 06:35] VITALS: BP 183/113; PULSE 86; RESP 18; TEMP 36.6; O2SAT 96; BMI 29.7
[2023-05-21] MEDS: Silver Nitrate (BKC) 4 EACH TOPICAL (06:58)
[2023-05-21] MEDS: Gelatin Sponge Absorbable 50cm (1) 1 EACH TOPICAL (06:58)
--- NOTE | 2023-05-21 07:11 | EDS_ITS ---
HPI History of Present Illness Chief Complaint: Wound Check Narrative Narrative: Patient presents with wound bleeding in his right shoulder. Yesterday he had excision of a group of melanomas. This was left open pending biopsy results. He woke up this morning and had blood in the area. He feels fine though. Of note he is on Plavix and just stopped it yesterday. But he is also on aspirin. PFSH PFSH Medical History ACS (acute coronary syndrome) Alcohol abuse Anemia Arthritis Atherosclerotic heart disease of [place] coronary artery without angina pectoris Cancer Essential hypertension Former smoker High cholesterol History of echocardiogram History of stress test History of transesophageal echocardiography (TREV) Hx of skin cancer, basal cell Loss of hearing Lumbar disc disease with radiculopathy Lumbar spondylosis Wears glasses Home Medications irbesartan 300 mg tablet (Avapro) 300 mg PO DAILY 09/18/13 [History Last Taken 02/09/23 07:30] cholecalciferol (vitamin D3) 25 mcg (1,000 unit) capsule (Vitamin D3) 5,000 unit PO DAILY 12/17/17 [History Last Taken Unknown] aspirin 81 mg capsule 81 mg PO DAILY 10/23/21 [History Last Taken 02/05/23] rosuvastatin 20 mg tablet (Crestor) 20 mg PO DAILY 03/03/22 [History Last Taken Unknown] metoprolol tartrate 25 mg tablet 25 mg PO BID #180 tabs 09/30/22 [Rx Last Taken 02/09/23 07:30] Allergy/AdvReac Type Severity Reaction Status Date / Time No Known Allergies Allergy Verified 05/21/23 06:39 Family History Brother CAD (coronary artery disease) Stenting- age 78 Mother CVA (cerebral vascular accident) Father CAD (coronary artery disease) CABG- 50-60s Surgical History H/O coronary artery bypass surgery History of left heart catheterization (10/24/21) History of lumbar laminectomy History of tonsillectomy Hx laparoscopic cholecystectomy Hx of arthroscopic knee surgery Hx of arthroscopic knee surgery Hx of colonoscopy Hx of melanoma excision Hx of repair of right rotator cuff Hx of total knee arthroplasty Social History Smoking Status: Former smoker alcohol intake: current ROS ROS ED Constitutional Constitutional ED: Denies chills or fever(s) Cardiovascular Cardiovascular: Denies chest pain, palpitations or racing heartbeat Respiratory/Chest Respiratory/Chest: Denies cough or dyspnea Gastrointestinal Gastrointestinal: Denies nausea or vomiting Musculoskeletal Musculoskeletal: Denies neck pain Integumentary Reports other Details: Lesion right shoulder Neurologic Neurologic: Denies paresthesias Hematologic/Lymphatic Hematologic/Lymphatic: Reports easy bleeding and easy bruising Allergic/Immunologic Allergic/Immunologic ED: Denies urticaria EXAM Physical Exam Narrative Exam Narrative: General: Patient awake alert no acute distress. Does not look pale. Carries on normal conversation. HEENT shows no trauma. Conjunctive a shows no pallor Lungs are clear saturations are normal. Heart is regular. He is not tachycardic. Extremities: I unwrapped dressings over his right shoulder. He had clot formation. This was removed and then clean. He had oozing at the backside of the wound. But nothing pulsatile. When pressure was applied to the edge of the wound it stopped. Please see procedure note for further management of this area. Const Vital Signs: 05/21/23 06:35 Temperature 97.9 F Temperature Source Temporal Pulse Rate 86 Respiratory Rate 18 Blood Pressure 183/113 H Blood Pressure Mean 136 Pulse Ox 96 Oxygen Delivery Method Room Air MDM MDM MDM Narrative Medical decision making narrative: Procedure: Wound care and hemostasis. I unwrapped the wound dressings that were on his right shoulder. He did have a moderate clot. He had a wound that was about 4 to 5 cm around. The posterior aspect between the 5:00 and 8:00 area had a couple spots of just oozing. They were not pulsatile. I was able to slow 1 of these down pretty significantly with silver nitrate. There is 1 new year 7 or 8:00 that I got a little bit of improvement of. But they were just slow oozing. With pressure they would stop bleeding. The area was cleaned. I put Surgifoam on it. I then put 2 ABDs over it to allow pressure. We then used a Elastoplast tape over it in a crossing fashion in order to apply pressure. We use this across his back and down the arm so that when he lowered his arm it would pull pressure on this area and allow compression. Patient wants to go up to his surgeon. He just wanted to get this checked before he went up there in their office was not open when he came in. Their office is open and about 20 minutes. His is driving him. I think this is reasonable. I explained that if he is not bleeding through this dressing they may just leave this in place. He is on Plavix. He just started holding it yesterday so he has several days until his blood will be clotting more normally. It sounds like he is still on aspirin. Discharge Plan Triage Chief Complaint: Wound Check ED Provider: Alex Crowder Dx/Rx/DC Orders Clinical Impression: Hemorrhage from wound Instructions: ED Post Op Wound Check, Bleeding Prescriptions: No Action irbesartan [Avapro] 300 MG tablet 300 mg PO DAILY Patient Comments: BLOOD PRESSURE cholecalciferol (vitamin D3) [Vitamin D3] 1,000 UNIT capsule 5,000 unit PO DAILY aspirin 81 mg Capsule 81 mg PO DAILY rosuvastatin [Crestor] 20 mg tablet 20 mg PO DAILY metoprolol tartrate 25 mg tablet 25 mg PO BID Qty: 180 3RF Primary Care Provider: Jarrod Elizabeth Referrals: Jarrod Elizabeth DO [Primary Care Provider] - Activity Restrictions/Additional Instructions: Follow-up today with your surgeon as planned. Disposition Disposition: Home, Self Care Discharge Date/Time: 05/21/23 07:21
== END 2023-05-21 07:21 | disposition home or self-care (01) ==
PROVIDERS: Emergency Provider Emergency Medicine; PCP Family Medicine; Visit Provider Emergency Medicine
DX: S41.001A Unspecified open wound of right shoulder, initial encounter (principal); I25.10 Atherosclerotic heart disease of native coronary artery without angina pectoris; Z87.891 Personal history of nicotine dependence; Z79.82 Long term (current) use of aspirin; Z79.899 Other long term (current) drug therapy; X58.XXXA Exposure to other specified factors, initial encounter
CPT/HCPCS: 99282

== ENCOUNTER → 2023-09-27 | Outpatient (CLI) | payer MEDICARE, SELFPAY ==
[2022-03-23 09:14] VITALS: BMI 29.4
--- OUTSIDE RECORDS SUMMARY | 2023-09-27 09:23 | XMS RPT_ITS | CCD ---
Author Name Unknown Address [facility] [place] [address] Organization [facility] Care Team Providers Care Salvage Worker Name Role Phone LAURA ELIZABETH Primary Care Unavailable PROVIDER, UNKNOWN Referring Unavailable JAZLYN GOETZ Attending Unavailable Laura Elizabeth DO Primary Care Provider Medications Completed/Discontinued Medications Medication Drug Class(es) Dates Sig (Normalized) Sig (Original) aspirin 81 mg oral tablet (1 source) Platelet Aggregation Inhibitor, Nonsteroidal Anti-inflammatory Drug take 1 tablet by mouth once daily Aspirin 81 mg ORAL Tab Take one tablet daily 0 Active Problems Active Problems Problem Classification Problem Date Documented Da te Episodic/Chronic Melanomas of skin (1 source) Malignant melanoma of right upper limb, including shoulder; Translations: [Malignant melanoma of right upper limb, including shoulder] Onset: 01-19-2023 Chronic Past or Other Problems Problem Classification Problem Date Documented Da te Episodic/Chronic Biliary tract disease (1 source) Acute cholecystitis; Translations: [Acute cholecystitis] Onset: 07-02-2010 07-02-2010 Episodic Results Test Name Value Interpretation Reference Range Facil ity Encounters Encounter Date Encounter Type Care Provider Facility Start: 01-19-2023 ambulatory LAURA LEIZABETH Facilit y:[facility] Start: 01-19-2023 End: 01-19-2023 Subsequent hospital visit by physician [facility] Work Phone: Molecular Imaging Procedures Date Procedure Procedure Detail Performing Clinician Start: 01-19-2023 Lymphatics & lymph n odes imaging Nicanor Maldonado Work Phone: Plan of Treatment Date Care Activity Detail Author Start: 04-16-2023 Influenza vaccination INFLUENZA (Sea son Ended) [facility] Start: 08-16-2022 ADVANCE DIRECTIVE DISCUSSION ADVANCE DIRECTIVE DISCUSSION [facility] Start: 08-16-2022 DEPRESSION ASSESSMENT DEPRESSION ASS ESSMENT [facility] Start: 2019 PNEUMOCOCCAL: 65+ (1 - PCV) PNEUMOCOCCAL: 65+ (1 - PCV) [facility] Start: 2009 PROSTATE CANCER SCRE ENING DISCUSSION PROSTATE CANCER SCREENING DISCUSSION [facility] Start: 2004 SHINGRIX VACCINE (1 of 2) SHINGRIX V ACCINE (1 of 2) [facility] Start: 1999 COLOGUARD (FIT-DNA) COLOGUARD (FIT-D NA) [facility] Start: 1999 Colonoscopy COLONOSCOPY [facility] Start: 1999 COLORECTAL CANCER SCREENING COLORECTAL CANCER SCREENING [facility] Start: [address] COLONOGRAPHY [facility] Start: 1999 DIABETES SCREEN DIABETES SCREEN [facility] Start: 1999 FECAL OCCULT BLOOD FECAL OCCULT BLOO D [facility] Start: 1999 SIGMOIDOSCOPY SIGMOIDOSCOPY [facility] Start: 1989 LIPID SCREEN LIPID SCREEN [facility] Start: 1973 Urine microalbumin profile DTAP,TDAP ,TD (1 - Tdap) [facility] Start: 1972 HEPATITIS C SCREENING HEPATITIS C SC REENING [facility] Start: 1955 COVID-19 VACCINE (#1) COVID-19 VACCI NE (#1) [facility] Start: 1955 ABDOMINAL AORTIC ANE URYSM SCREENING ABDOMINAL AORTIC ANEURYSM SCREENING [facility] Payers Date Payer Category Payer Medicare [id number] 2022 Medicare AETNA MEDICARE A ETNA MEDICARE PPO [id number] 2022-Present [phone] [address] [place] [address] PPO [id number] Social History Date Type Detail Facility Start: 07-02-2010 Tobacco smoking stat us IDIS Ex-smoker [facility] History of tobacco use Current smoker [facility] Start: 12-20-2014 Alcohol intake Current drinke r of alcohol (finding) [facility] Start: 12-20-2014 Alcohol intake [facility] Start: 07-02-2010 Tobacco Comment Quit 10 years ago [facility] Start: 1955 Sex Assigned At Not on file [facility] Discharge summary note 10-31-2021 Note Date & Type Note Facility 10-31-2021 Note Discharge Summary: [facility] ardiothoracic Surgery Eric Gonzalez :1955 AGE: 66 y.o. ADMIT DATE: 10/24/2021 DISCHARGE DATE: 10/31/2021 DISCHARGING SURGEON: Riya Schwartz MD, Office Number: [phone] PRIMARY CARE PHYSICIAN: PROVIDER UNKNOWN, MD VISIT STATUS: Admission CODE STATUS: Full Code SURGERY: 10/27/21: CABG x5 (COOK-LAD, SVG-OM-LINDA, SVG- PDA, SVG-Diag) with Dr. Schwartz [facility] COURSE: 66 yo male PMH, HTN, HLD, former smoker, ETOH 42 beers per week. ?He presented from an outside facility where he presented with unstable angina non-specific EKG changes troponin levels equivocal. ?He was taken to the labor relations teacher and found to have MVCAD, proximal CX, diffuse mild to mod LAD, proximal RCA and ostial PDA. The CX and LAD were IFR positive the RCA appears heavily calcified.?He was considered for CABG and agreed to surgical intervention. He was taken to the operating room on 10/27/21 for CABGx5 (see op note for full description) with Dr. Schwartz. Post operative course uncomplicated. He was discharged home with home health on POD#4. 10/31/21. Of note: discharged on short course of PO lasix and potassium replacement for post op fluid overload DIAGNOSTICS: EF: 10/27: TREV normal function Recent Labs 10/29/21 0114 10/30/21 0103 10/31/21 0028 CREATININE 0.90 0.89 0.91 HGB 8.9* 8.2* 7.4* PLT 192 201 231 WBC 7.6 7.2 6.3 NA 128* 129* 131* K 3.4* 3.9 3.8 BRIEF PHYSICAL EXAM: Physical Exam Cardiovascular: Rate and Rhythm: Normal rate and regular rhythm. Heart sounds: Normal heart sounds. No murmur heard. No friction rub. Pulmonary: Effort: Pulmonary effort is normal. Abdominal: Palpations: Abdomen is soft. Tenderness: There is no abdominal tenderness. Musculoskeletal: Right lower leg: No edema. Left lower leg: No edema. Skin: General: Skin is warm and dry. Capillary Refill: Capillary refill takes less than 2 seconds. Findings: Bruising present. Neurological: Mental Status: He is alert. Psychiatric: Behavior: Behavior normal. Behavior is cooperative. CONSULTS/TREATMENT TEAM: Primary Care Provider: PROVIDER TD, MD Cardiology: Dr. Fraire (Cath); [place] CCM: Dr. Ellis-signed off Endocrine: Dr. Rachel Zamarripa D/C recs: likely none per last note 10/29 DISCHARGE DIAGNOSES: Unstable angina/CAD s/p CABGx5 on 10/27 HTN HLP Stress hyperglycemia Post operative Pulm Management: Normal Post-Operative Course-no acute respiratory failure Post-operative Atrial Fibrillation: []?Yes [x]? No Acute blood loss anemia DISCHARGE MEDICATIONS: Medication List START taking these medications clopidogrel 75 MG tablet Commonly known as: PLAVIX Take 1 tablet by mouth daily furosemide 40 MG tablet Commonly known as: LASIX Take 1 tablet by mouth daily for 5 days metoprolol tartrate 25 MG tablet Commonly known as: LOPRESSOR Take 1 tablet by mouth 2 times daily oxyCODONE 5 MG immediate release tablet Commonly known as: ROXICODONE Take 1 tablet by mouth every 6 hours as needed for Pain (acute surgical pain) for up to 5 days. polyethylene glycol 17 g packet Commonly known as: GLYCOLAX Take 17 g by mouth daily as needed for Constipation potassium chloride 20 MEQ extended release tablet Commonly known as: KLOR-CON M Take 1 tablet by mouth daily for 5 days CHANGE how you take these medications atorvastatin 20 MG tablet Commonly known as: LIPITOR Take 2 tablets by mouth daily At night What changed: how much to take CONTINUE taking these medications aspirin EC 81 MG EC tablet NONFORMULARY NONFORMULARY NONFORMULARY STOP taking these medications hydroCHLOROthiazide 25 MG tablet Commonly known as: HYDRODIURIL Where to Get Your Medications These medications were sent to [facility] [address] - [phone] - F [phone] [address] [address] ? clopidogrel 75 MG tablet ? furosemide 40 MG tablet ? metoprolol tartrate 25 MG tablet ? oxyCODONE 5 MG immediate release tablet ? potassium chloride 20 MEQ extended release tablet You can get these medications from any pharmacy You don't need a prescription for these medications ? polyethylene glycol 17 g packet Information about where to get these medications is not yet available Ask your nurse or doctor about these medications ? atorvastatin 20 MG tablet *The patient's OARRS report was obtained and reviewed.* I explained to Eric Gonzalez that narcotic pain medications have addictive potential and should only be taken for acute post operative surgical pain. I also explained that narcotic/opioid medication should not be taken to help sleep as they are only intended to treat pain. In addition the patient needs to avoid driving or taking other narcotics, anxiolytics or consuming alcohol or using street drugs while they are taking the narcotic because serious side effects (more content not included)... [facility] Clinical Note 10-27-2021 Note Date & Type Note Facility 10-27-2021 Note DATE OF PROCEDURE: PREOPERATIVE DIAGNOSIS: Coronary artery disease POSTOPERATIVE DIAGNOSIS: Coronary artery disease PROCEDURE: 1. Coronary artery bypass grafting x 5 - Left internal mammary artery to the left anterior descending - Sequenced saphenous vein graft to the obtuse marginal and posterior lateral ascending - Saphenous vein graft to the right posterior descending artery - Saphenous vein graft to the diagonal 2. Endoscopic vein harvest, left lower extremity SURGEON: Riya Schwartz MD FLAT KNITTER: Callie Fischer COMPLICATIONS: None intra-op CONDITION: Stable DESCRIPTION OF PROCEDURE: The patient was prepped and draped in the appropriate manner, having undergone general endotracheal anesthetic in addition to [place]a catheter placement, arterial line, and catheter placement. An antibiotic and a beta jack were administered pre-operatively and documented. Incision and conduit harvest/preparation: A midline sternotomy incision was utilized in standard fashion. The sternum was divided with the oscillating saw. The left internal mammary artery was taken down with clips and bovie cauterization. Papaverine was used. The left lower extremity saphenous vein was harvested via the endoscopic approach. The patient was fully heparinized prior to dividing and prepping the mammary. Cannulation and cardiopulmonary bypass: After cannulation, the patient was placed on cardiopulmonary bypass support and drifted to ~34 degrees. Ascending aortic cross-clamp was applied. Antegrade cardioplegia (microplegia) was delivered till the heart was arrested in diastole. Cardioplegia was re-administered every 20 minutes while the ascending aorta was cross clamped. Aortic canula: 21 Fr soft flow angled cannula in distal ascending aorta Venous canula: 29/29 Fr triple stage cannula via right atrial appendage Cardioplegia: Antegrade via cannula in the mid ascending aorta. Coronary artery bypass: Bypasses were performed to the posterior lateral ascending artery and obtuse marginal as a sequence, to the posterior descending artery and the diagonal with 7-0 Prolene distally and 6-0 Prolene proximally to the ascending aorta. The left internal mammary artery was anastomosed to the LAD with 7-0 Prolene. CPB wean and decannulation: The patient was given a dose of warm blood cardioplegia. Valsalva breaths were mechanically administered and the aorta was unclamped. The heart returned to normal sinus rhythm. Pacing wire was not placed. The DLP left in place as a root vent. The patient was rewarmed and weaned from cardiopulmonary bypass support without difficulty. Protamine was administered and cannulas were removed without difficulty. Two 24 Fr parker drains were placed, one in the left pleural space and one in the mediastinum. Closure: Hemostasis was achieved. The sternum and incision were closed with sternal wires, running 0, 2-0 and 4-0 stitches. Dressings applied, and the patient was transferred to the cardiovascular intensive care unit in stable condition. Cardiopulmonary bypass time: 142 minutes Cross clamp time: 127 minutes Intra-op TREV: Normal EF, trivial MR, normal AV function Riya Schwartz MD Cardiothoracic Surgery [facility] Summary Purpose Family History No Family History Records FoundNo Family History Records FoundNo Family History Records Found Advance Directives No Advanced Directives Records FoundNo Advanced Directives Records FoundNo Advanced Directives Records Found Additional Source Comments (unrecognized sect ion and content) No Status Records FoundNo Status Records FoundNo Status Records Found INFORMATION SOURCE (unrecogn ized section and content) DATE CREATED AUTHOR AUTHOR'S ORGANIZ ATION 01/24/2023 [facility] DATE CREATED AUTHOR AUTHOR'S ORGANIZ ATION 01/24/2023 [facility] Source Comments (unrecognize d section and content) In the event this informatio n is protected by the Federal Confidentiality of Alcohol and Drug Abuse Patient Records regulations: The Federal rules restrict any use of the information to criminally investigate or prosecute any alcohol or drug abuse patient.[facility] Care Teams (unrecognized sec tion and content) FOR RECORDS PERTAINING TO PATIENTS WHO ARE OR HAVE BEEN ENROLLED IN A CHEMICAL DEPENDENCY/SUBSTANCEABUSE PROGRAM, SOME INFORMATION MAY BE OMITTED. This clinical summary was aggregated from multiple sources. Caution should be exercised in using it in the provision of clinical care. This summary normalizes information from multiple sources, and as a consequence, information in this document may materially change the coding, format and clinical context of patient data. In addition, data may be omitted in some cases. CLINICAL DECISIONS SHOULD BE BASED ON THE PRIMARY CLINICAL RECORDS. [facility]. provides no warranty or guarantee of the accuracy or completeness of information in this document.
[2023-09-27 12:39] LABS: Absolute Lymphocyte Count 2.08 X10^3/uL (0.83-4.51); Absolute Neutrophil Count 2.6 X10^3/uL (2.0-7.7); Basophil# 0.08 X10^3/uL; Basophil% 1.4 % (0-1); Eosinophil# 0.31 X10^3/uL; Eosinophils% 5.4 % (0-5); Hematocrit 43.6 % (40-54); Hemoglobin 14.4 g/dL (13.0-16.5); Lymphocyte # 2.08 X10^3/ul (0.83-4.51); Lymphocyte % 36.4 % (19-41); Mean Corpuscular Hgb 30.3 pg (27.0-32.0); Mean Corpuscular Volume 91.8 fL (80-94); Mean Platelet Vol. 9.2 fl (6.2-12.0); Monocyte# 0.59 X10^3/uL; Monocyte% 10.3 % (0-10); NRBC Flagged by Analyzer 0 % (0-5); Neutrophil # 2.63 X10^3/uL (2.7-7.7); Neutrophil % 46.1 % (47-70); Platelet Count 345 K/mm3 (150-450); RBC Distribution Width CV 12.5 % (11.6-14.6); RBC Distribution Width SD 41.5 fl (35.1-43.9); Red Blood Count 4.75 M/mm3 (4.6-6.2); White Blood Count 5.7 K/mm3 (4.4-11.0)
[2023-09-27 14:17] LABS: PSA,Total - Annual Screen 1.07 ng/mL (0.00-4.00)
== END | disposition home or self-care (01) ==
LOC: BFHLAB 09:06
PROVIDERS: PCP Family Medicine; Visit Provider Family Medicine
DX: D64.9 Anemia, unspecified (principal); Z12.5 Encounter for screening for malignant neoplasm of prostate
CPT/HCPCS: 36415; 84153; 85025; G0103

== ENCOUNTER → 2024-05-19 | Outpatient (CLI) | payer MEDICARE, SELFPAY ==
[2022-03-23 09:14] VITALS: BMI 29.4
[2024-05-19 12:08] LABS: AST(SGOT) 30 U/L (15-37); Alanine Aminotransfer ALT/SGPT 38 U/L (16-61); Albumin, Serum 4.1 g/dL (3.2-5.0); Alkaline Phosphatase 76 U/L (45-117); Bilirubin, Direct 0.19 mg/dL (0.00-0.30); Cholesterol 154 mg/dL (200); Globulin 3.3 g/dL (2.2-4.2); High Density Lipoprotein 73 mg/dL; Protein, Total 7.4 g/dL (6.4-8.2); Triglycerides 43 mg/dL; Very Low Density Lipoprotein 9 mg/dL (5-40)
== END | disposition home or self-care (01) ==
PROVIDERS: PCP Family Medicine; Referring Provider Nurse Practitioner Family; Visit Provider Nurse Practitioner Family
DX: E78.00 Pure hypercholesterolemia, unspecified (principal)
CPT/HCPCS: 36415; 80061; 80076

== ENCOUNTER → 2025-01-10 | Outpatient (CLI) | payer MEDICARE, SELFPAY ==
[2022-03-23 09:14] VITALS: BMI 29.4
== END | disposition home or self-care (01) ==
LOC: LABSPEC 16:20
PROVIDERS: PCP Family Medicine; Referring Provider Otolaryngology Otolaryngology/Facial Plastic Surgery; Visit Provider Otolaryngology Otolaryngology/Facial Plastic Surgery
DX: J32.9 Chronic sinusitis, unspecified (principal)
CPT/HCPCS: 87070; 87077; 87186; 87205

== ENCOUNTER → 2025-07-05 | Outpatient (CLI) | payer MEDICARE, SELFPAY ==
[2022-03-23 09:14] VITALS: BMI 29.4
[2025-07-05 10:56] LABS: AST(SGOT) 31 U/L (<=37); Alanine Aminotransfer ALT/SGPT 30 U/L (<=46); Albumin, Serum 4.7 g/dL (3.4-4.8); Alkaline Phosphatase 55 U/L (40-129); Bilirubin, Direct 0.27 mg/dL (0.00-0.30); Cholesterol 171 mg/dL (<=200); Globulin 2.7 g/dL (2.2-4.2); Low Density Lipoprotein Calc. 99 mg/dL; Triglycerides 53 mg/dL; Very Low Density Lipoprotein 11 mg/dL (5-40); cholesterol:hdl ratio screen 2.80
== END | disposition home or self-care (01) ==
PROVIDERS: PCP Family Medicine; Referring Provider Internal Medicine Cardiovascular Disease; Visit Provider Internal Medicine Cardiovascular Disease
DX: E78.2 Mixed hyperlipidemia (principal)
CPT/HCPCS: 36415; 80061; 80076

== ENCOUNTER → 2025-07-30 | Outpatient (CLI) | payer MEDICARE, SELFPAY ==
[2022-03-23 09:14] VITALS: BMI 29.4
--- NOTE | 2025-07-30 07:25 | ECHOD_ITS ---
Reason For Study Reason For Study: HTN Procedure This was a 2D Doppler, Color Flow transthoracic echocardiogram. Exam performed in department. Left Ventricle Normal LV size. The left ventricular ejection fraction is 65 %. No regional wall motion abnormalities noted. Right Ventricle Normal RV size. Normal systolic function. Atria Normal left atrium. Normal right atrium. Mitral Valve Normal mitral valve. Tricuspid Valve Normal tricuspid valve. Aortic Valve Normal aortic valve. Pulmonic Valve Normal pulmonic valve. Great Vessels Normal aortic root. The pulmonary artery is normal size. Inferior vena cava collapse with respiration. Pericardium/Pleural No pericardial effusion. MMode/2D Measurements & Calculations LVIDd: 4.8 cm IVSd: 1.2 cm Ao root diam: 3.9 cm LVIDs: 2.4 cm LVPWd: 1.4 cm FS: 50.1 % LAV(MOD-bp): 45.8 ml LVAd ap4: 26.4 cm2 SV(MOD-sp4): 52.8 ml LAV(MOD-bp) Indexed: 20.5 ml/m2 LVLd ap4: 7.9 cm SI(MOD-sp4): 23.7 ml/m2 LAV(MOD-sp2): 33.2 ml EDV(MOD-sp4): 75.8 ml LAV(MOD-sp4): 58.1 ml EDV(sp4-el): 75.0 ml LVAs ap4: 13.6 cm2 LVLs ap4: 7.0 cm ESV(MOD-sp4): 23.0 ml ESV(sp4-el): 22.4 ml EF(MOD-sp4): 69.7 % EF(sp4-el): 70.1 % SV(sp4-el): 52.6 ml LA A4 area: 21.3 cm2 LA dimension(2D): 4.4 cm RA A4 area: 11.1 cm2 Time Measurements MV dec time: 0.25 sec Doppler Measurements & Calculations MV E max gerhard: 64.5 cm/sec Lat Peak E' Gerhard: 12.2 cm/sec Med Peak E' Gerhard: 7.2 cm/sec MV A max gerhard: 91.4 cm/sec E/E' lat: 5.3 E/E' med: 8.9 MV E/A: 0.70 MV V2 max: 85.1 cm/sec Ao V2 max: 146.6 cm/sec MV max P.9 mmHg MV dec slope: 259.6 cm/sec2 Ao max P.6 mmHg MV V2 mean: 52.6 cm/sec Ao V2 mean: 96.3 cm/sec MV mean P.2 mmHg Ao mean P.4 mmHg MV V2 VTI: 34.1 cm Ao V2 VTI: 34.1 cm AV (velocity ratio): 0.72 LV V1 max: 106.3 cm/sec PA V2 max: 102.3 cm/sec TR max gerhard: 246.2 cm/sec LV V1 max P.5 mmHg PA V2 mean: 63.4 cm/sec TR max P.2 mmHg LV V1 mean P.4 mmHg LV V1 mean: 71.3 cm/sec LV V1 VTI: 24.4 cm ECHO/Echo Complete Interpretation Summary Normal LV size. The left ventricular ejection fraction is 65 %. No regional wall motion abnormalities noted. Structurally normal valves. Ordering Physician: Lionel Holm Referring Physician: Lionel Holm Performed By: Beti Ma RCS
--- OUTSIDE RECORDS SUMMARY | 2025-07-30 07:44 | XMS RPT_ITS | CCD ---
Author Organization [facility] Care Team Providers Care Mammography Supervisor Name Role Phone Dr. Laura Ordaz Primary Care Provider Dr. Tr Haddad Emergency Provider Dr. Jag Graham Admit Provider Unavailable Gladys, Dr. Rm Attending Provider Unavailable Dr. Jag Graham Other Provider Unavailable Dr. Emilie Torres Attending Provider Dr. Lionel Holm Attending Provider Dr. Jag Graham Referring Provider Unavailable Dr. Laura Ordaz Referring Provider Dr. Laura Ordaz Primary Care Provider Dr. Lioenl Holm Attending Provider LAURA ORDAZ Primary Care Unavailable PROVIDER, TD Referring Unavailable SEDA GOETZ Attending Unavailable Laura Ordaz DO Primary Care Provider Dr. Laura Ordaz Primary Care Provider Dr. Laura Ordaz Referring Provider Dr. Daryl Delgado Attending Provider [phone] Dr. Daryl Delgado Referring Provider Dr. Daryl Delgado Other Provider Laura Ordaz Primary Care Provider LAURA ORDAZ Primary Care Unavailable NICANOR MALDONADO III Referring Unavailable DIULUS NICANOR CANALES Attending Unavailable Nabeel Zaldivar MD Unavailable Laura Ordaz DO Primary Care Provider Leticia Grant CGC Unavailable LETICIA GRANT Attending Unavailable LAURA ORDAZ A Referring Unavailable ORLINLAURA CASTRO A Primary Care Unavailable LETICIA GRANT Attending Unavailable LAURA ORDAZ Primary Care Unavailable NABEEL ZALDIVAR Referring Unavailable TONE FREIRE Referring Unavailable TONE FREIRE Attending Unavailable LAURA ORDAZ Primary Care Unavailable Dr. Laura Ordaz DO Primary Care Provider Al GORDON, Dr. Filippo Whiting Attending Provider Al GORDON, Dr. Filippo Whiting Referring Provider Laura Ordaz Referring Unavailable Laura Ordaz Primary Care Unavailable Roof PATIENT'S LIBRARIAN, Tarun Montoya Attending Unavailable Laura Ordaz Primary Care Unavailable Roof PATIENT'S LIBRARIAN, Tarun H Referring Unavailable Roof PATIENT'S LIBRARIAN, Tarun H Attending Unavailable Laura Ordaz Primary Care Unavailable Filippo Melendez Referring Unavailable Filippo Melendez Attending Unavailable Erica GORDON, Nicanor Stauffer Unavailable NONE, NONE Unavailable Unavailable Orlin WELLS, Laura Stauffer Unavailable Allergies Allergy Classification Reported Allergen(s) Allergy Type Date of Onset Reaction(s) Facility (6 sources) Acetaminophen Drug Allergy 2 Upset Stomach [facility] Work Phone: (6 sources) oxyCODONE Drug Allergy 2 Upset Stomach [facility] Work Phone: (1 source) atorvastatin Drug Allergy 2 myalgias [facility] Work Phone: Medications Current Medications Medication Drug Class(es) Dates Sig (Normalized) Sig (Original) Adult Low Dose Aspirin 81 mg tablet,delayed release (DR/EC) (1 source) take 1 tablet by mouth once daily Adult Low Dose Aspirin 81 mg tablet,delayed release (DR/EC) 1 tablet by mouth once a day active Nora Huitron RN [facility] [place] [facility] aspirin 81 mg oral tablet (20 sources) Platelet Aggregation Inhibitor, Nonsteroidal Anti-inflammatory Drug Start: 10-23-2021 take 1 capsule by mouth once daily Aspirin 81 mg Capsule Active 81 mg PO DAILY October 23, 2021 1:00am Start: 01-20-2021 End: 02-07-2021 take 1 tablet by mouth once daily Aspirin (Aspir-81) 81 mg Tablet,Delayed Release (Dr/Ec) Discontinued 81 mg PO DAILY January 20, 2021 12:00am February 07, 2021 7:40am Start: 09-18-2013 End: 09-20-2013 take 1 tablet by mouth once daily Aspirin 81 MG tablet Discontinued 81 mg PO DAILY@0800 September 18, 2013 1:00am September 20, 2013 1:35pm Comment on above: Take one tablet rafiq y cholecalciferol 0.125 mg oral tablet (11 sources) Vitamin D Start: 05-19-20 take 1 tablet by mouth once daily Cholecalciferol (Vitamin D3) 125 mcg (5,000 unit) tablet Active 125 ug PO daily May 19, 2024 12:00am Start: 12-17-2017 End: 05-19-2024 take 5 capsules by mouth once daily Cholecalciferol (Vitamin D3) (Vitamin D3) 1,000 UNIT capsule Discontinued 5000 U PO DAILY December 17, 2017 12:00am May 19, 2024 9:30am Start: 12-17-2017 take 1 capsule by mo [facility] once daily Cholecalciferol (Vitamin D3) (Vitamin D3) 1,000 UNIT capsule Active 1000 UNIT PO DAILY December 17, 2017 12:00am [facility] Vitamin D3 125 mcg (5,000 unit) tablet 1 tablet by mouth once a day active Nora Huitron RN [facility] [place] [facility] FT TURMERIC COMPLEX (TURMERIC) 500 MG CAPS (1 source) take 1 capsule by mouth once daily turmeric 450 mg-turmeric root extract 50 mg capsule 1 capsule by mouth once a day active Radha Portillo RN [facility] irbesartan 300 mg oral tablet (10 sources) Angiotensin 2 Receptor Jack Start: 4 take 1 tablet by mouth once daily Irbesartan (Avapro) 300 MG tablet Active 300 mg PO DAILY September 18, 2013 1:00am metoprolol tartrate 25 mg oral tablet (20 sources) beta-Adrenergic Jack Start: 2 End: 4 take 1 tablet by mouth twice daily Metoprolol Tartrate 25 mg tablet Active 25 mg PO TWICE A DAY 180 July 03, 2024 3:53pm niacinamide 500 mg extended release oral tablet (2 sources) Start: take 1 tablet by mouth twice daily Niacinamide 500 mg tablet extended release Active 500 mg PO TWICE A DAY May 19, 2024 12:00am take 1 tablet by mouth twice rebekah ly niacinamide 500 mg tablet 1 tablet by mouth twice a day active Radha Portillo RN [facility] rosuvastatin calcium 20 mg oral tablet (5 sources) HMG-CoA Reductase Inhibitor Start: 03-03-2022 take 1 tablet by mouth once daily Rosuvastatin (Crestor) 20 mg tablet Active 20 mg PO DAILY March 03, 2022 12:00am triple boron 3 mg (1 source) take 1 capsule by mouth twice daily triple boron 3 mg 1 capsule by mouth twice a day active Radha Portillo RN [facility] VITAMIN K2 (MENAQUINONE-7) 40 MCG TABS (1 source) take 1 tablet by mouth once daily vitamin K2 40 mcg tablet 1 tablet by mouth once a day active Radha Portillo RN [facility] Completed/Discontinued Medications Medication Drug Class(es) Dates Sig (Normalized) Sig (Original) atorvastatin 40 mg oral tablet (20 sources) HMG-CoA Reductase Inhibitor Start: 11-21-2021 End: 11-21-2021 take 1 tablet by mouth at bedtime Atorvastatin 80 mg tablet Discontinued 80 mg PO AT BEDTIME November 21, 2021 12:00am November 21, 2021 2:41pm Start: 11-21-2021 End: 03-03-2022 take 1 tablet by mouth at bedtime Atorvastatin 40 mg tablet Discontinued 40 mg PO AT BEDTIME 90 November 21, 2021 2:44pm March 03, 2022 5:48pm Start: 10-24-2021 End: 11-21-2021 take 4 tablets by mouth at bedtime Atorvastatin 20 MG tablet Discontinued 80 mg PO AT BEDTIME 0 October 24, 2021 5:50pm November 21, 2021 2:32pm Start: 10-24-2021 End: 11-21-2021 take 80 mg by mouth at bedtime Atorvastatin Discontinu ed 80 MG PO AT BEDTIME 0 October 24, 2021 4:50pm November 21, 2021 1:32pm Start: 09-18-2013 End: 10-24-2021 take 1 tablet by mouth at bedtime Atorvastatin 20 MG tablet Discontinued 20 mg PO AT BEDTIME September 18, 2013 1:00am October 24, 2021 5:50pm Comment on above: Take one tablet rafiq y Calcium Carbonate / vitamin D3 (1 source) CALCIUM CARBONATE/VITAMIN D3 (VITAMIN D-3 ORAL) Take by mouth. 0 Active Comment on above: Take by mouth. clopidogrel 75 mg oral tablet (20 sources) P2Y12 Platelet Inhibitor Start: 2 End: 3 take 1 tablet by mouth once daily Clopidogrel 75 mg tablet Discontinued 75 mg PO DAILY September 30, 2022 10:23am May 20, 2023 11:47am etodolac 400 mg oral tablet (20 sources) Nonsteroidal Anti-inflammatory Drug Start: 2 End: 2 take 1 tablet by mouth twice daily Etodolac 400 mg tablet Discontinued 400 mg PO TWICE A DAY October 23, 2021 1:00am October 24, 2021 5:50pm Start: 12-17-2017 End: 02-07-2021 take 1 tablet by mouth twice daily Etodolac 400 MG tablet extended release 24 hr Discontinued 400 mg PO TWICE A DAY December 17, 2017 12:00am February 07, 2021 7:40am Start: 09-18-2013 End: 09-20-2013 take 1 capsule by mouth once daily Etodolac 200 MG capsule Discontinued 400 mg PO DAILY September 18, 2013 1:00am September 20, 2013 1:35pm Start: 09-18-2013 End: 09-20-2013 take 400 mg by mouth once daily Etodolac Discontinued 400 MG PO DAILY September 18, 2013 12:00am September 20, 2013 12:35pm hydroCHLOROthiazide 25 mg oral tablet (9 sources) Thiazide Diuretic Start: 09-18-2013 End: 11-21-2021 take 1 tablet by mouth once daily Hydrochlorothiazide 25 MG tablet Discontinued 25 mg PO DAILY September 18, 2013 1:00am November 21, 2021 2:32pm IRBESARTAN/HYDROCHLOROTH IAZIDE (AVALIDE ORAL) (1 source) take 1 tablet by mouth once daily IRBESARTAN/HYDROCHLOROT HIAZIDE (AVALIDE ORAL) Take one tablet daily 0 Active Comment on above: Take one tablet rafiq y technetium Tc-99m sulfur colloid filtered injection 1.1 millicurie (2 sources) Start: 10-29-2023 End: 10-29-2023 technetium Tc-99m sulfur colloid filtered injection 1.1 millicurie Problems Active Problems Problem Classification Problem Date Documented Da te Episodic/Chronic Alcohol-related disorders (20 sources) Alcohol abuse; Translations: [Alcohol abuse, uncomplicated] Chronic Comment on above: 42 beers a week Coronary atherosclerosis and other heart disease (18 sources) Coronary atherosclerosis; Translations: [Atherosclerotic heart disease of [place] coronary artery without angina pectoris] 11-21-2021 Chronic Coronary atherosclerosis and other heart disease (6 sources) Presence of aortocoronary bypass graft; Translations: [Aortocoronary bypass status] Episodic Disorders of lipid metabolism (15 sources) Hyperlipidemia; Translations: [Hyperlipidemia, unspecified] Onset: 06-15-2024 Chronic Essential hypertension (15 sources) Essential hypertension; Translations: [Essential (primary) hypertension] Chronic Comment on above: CONTROLLED WITH MEDS Malaise and fatigue (3 sources) Fatigue; Translations: [Other fatigue] 03-23-2022 Episodic Melanomas of skin (7 sources) Malignant melanoma of right upper limb, including shoulder; Translations: [Malignant melanoma] Onset: 01-13-2023 10-29-2023 Chronic Other and unspecified benign neoplasm (3 sources) History of polyp of colon; Translations: [Personal history of colonic polyps] 10-14-2022 Episodic Other and unspecified benign neoplasm (1 source) Personal history of colonic polyps; Translations: [Personal history of colonic polyps] 12-28-2022 Episodic Other injuries and conditions due to external causes (2 sources) Wound hemorrhage; Translations: [Other injury of unspecified body region, initial encounter] 05-29-2023 Episodic Other non-epithelial cancer of skin (2 sources) Malignant neoplasm of skin of lower limb; Translations: [Unspecified malignant neoplasm of skin of left lower limb, including hip] Onset: 05-23-2025 05-23-2025 Episodic Other upper respiratory infections (1 source) Chronic sinusitis, unspecified; Translations: [Chronic sinusitis, unspecified] Onset: 01-15-2025 Chronic Residual codes; unclassified (1 source) Family history of malignant neoplasm of skin; Translations: [Family history of malignant neoplasm of other organs or systems] 12-06-2023 Episodic Spondylosis; intervertebral disc disorders; other back problems (9 sources) Lumbar spondylosis; Translations: [Spondylosis without myelopathy or radiculopathy, lumbar region] 11-21-2021 Chronic Spondylosis; intervertebral disc disorders; other back problems (9 sources) Lumbar disc prolapse with radiculopathy; Translations: [Intervertebral disc disorders with radiculopathy, lumbar region] 11-21-2021 Episodic Past or Other Problems Problem Classification Problem Date Documented Date Episodic/Chronic Biliary tract disease (1 source) Acute cholecystitis; Translations: [Acute cholecystitis] Onset: 07-02-2010 07-02-2010 Episodic Melanomas of skin (2 sources) History of melanoma in situ of skin; Translations: [Personal history of melanoma in-situ] Onset: 01-27-2023 12-06-2023 Episodic Other aftercare (1 source) Encounter for other specified surgical aftercare; Translations: [Other specified aftercare following surgery] Onset: 01-27-2023 05-23-2025 Episodic Residual codes; unclassified (1 source) H/O: anticoagulant therapy; Translations: [Personal history of other drug therapy] Onset: 01-13-2023 01-13-2023 Episodic Results Test Name Value Interpretation Reference Range Facility Relevant diagnostic tests/la boratory data Narrativeon 05-23-2025 Fall risk assessment no ARACELIS Zachary Prell Work Phone: MEDS REVIEW Done [employer] Work Phone: MEDS REVIEWD Medications reviewed with changes [employer] Work Phone: Nasopharyngeal Cultureon NAC Nasopharyngeal Cultu re Streptococcus pneumoniae Amount Growth 2+ Streptococcus pneumoniae: REACTION Cefotaxime Islt LYNDA <=0.12 Cefotaxime Islt LYNDA <=0.12 S cefTRIAXone Islt LYNDA <=0.12 S cefTRIAXone Islt LYNDA <=0.12 S Clindamycin Islt LYNDA <=0.25 S Erythromycin Islt LYNDA <=0.12 S levoFLOXacin Islt LYNDA 0.5 S Moxifloxacin Islt LYNDA 0.12 S TMP SMX Islt LYNDA 40 I Vancomycin Islt LYNDA 0.5 S Penicillin Islt LYNDA <=0.06 S Penicillin Islt LYNDA <=0.06 S Penicillin Islt LYNDA <=0.06 S Normal [facility] Comment on above: Performed By: #### M 100.2000, M100.2500 #### [facility] [address] [place], [address] Gram Stainon 01-11-2025 GS Positive Normal [facility] Comment on above: Performed By: #### M 100.2000, M100.2500 #### [facility] [address] [place], [address] Gram stainOrdered By: Filippo ferrer on 01-10-2025 Microscopic observation Gram stain Nom (Unsp spec) [facility] Cardiology Visit Reporton Cardiology Visit Report [facility] [address] [place], [place] [address] OFFICE VISIT Date of Service: 05/19/24 MR#: [id number] Acct: [id number] Name: ERIC GONZALEZ Rep #: [id number] : 1955 Provider: MITCHELL aviles Age/Sex: 68/M Location: [facility] Status: Signed [facility] HPI History of Present Illness Details: Pleasant 68-year-old man with a history of coronary artery disease. He had presented to the emergency room complaining of retrosternal chest discomfort radiating to the back and to the jaw. He has also had a history of alcohol use. He underwent an urgent cardiac catheterization which demonstrated preserved ejection fraction of 60% the left coronary assist system was heavily calcified with a short left main the left anterior descending artery was heavily calcified from proximal to distal with a proximal 50% stenosis in the mid 60 to 70% stenosis. The LAD reached all the way to the apex. The first diagonal branch had a 50 to 60% stenosis the proximal circumflex artery was calcified with 40 to 50% stenosis in the right coronary artery was calcified in its entirety with a proximal 70% stenotic branch and a posterior descending artery 90% stenosis and posterior lateral 60 to 70% stenosis. Based on the above as well as the heavily calcified status we decided to transfer him to [facility]. He underwent coronary artery bypass surgery x5 with a left internal mammary artery to the left anterior descending artery, saphenous vein graft to the obtuse marginal branch and posterior lateral branch, saphenous vein graft to posterior descending artery, and saphenous vein graft to the diagonal branch. Clinically he has did well post surgery and his Intra-Op TREV demonstrated preserved left ventricular systolic function. He has discontinued any alcohol use. He denies chest, arm, jaw, or neck discomfort. He denies palpitations. He states, mild bilateral lower extremity edema with right more than left. He denies claudication. He denies shortness of breath with activity, shortness of breath at rest, orthopnea, or PND. He denies chronic cough. He denies significant, sudden weight gain. He denies lightheadedness, dizziness, near-syncope, or syncope. He denies blood in urine, blood in stool, or epistaxis. He denies fever with chills. He denies myalgia. He denies fatigue. His exercise level has remained stable. Intake Vital Signs 05/20/23 11:27 05/21/23 06:35 05/19/24 09:26 Height 6 ft 6 ft 6 ft Weight: 223 lb BMI 30.2 BP 112/62 Blood Pressure Location Lt brachial Position Sitting Respiration 16 Pulse 56 L Pulse Source NIBP Pulse Oximetry (%) 97 Oxygen Delivery Method room air Intake Visit Reasons: 1 Y FU Vendor Management Specialist Required: No Is patient in pain?: No Allergies No Known Allergies Allergy (Verified 05/19/24 09:29) Medications ???Medication ???Instructions ???Recorded ???Confirmed ???Type irbesartan 300 mg tablet (Avapro) 300 mg PO DAILY 09/18/13 05/19/24 History aspirin 81 mg capsule 81 mg PO DAILY 10/23/21 05/19/24 History rosuvastatin 20 mg tablet (Crestor) 20 mg PO DAILY 03/03/22 05/19/24 History metoprolol tartrate 25 mg tablet 25 mg PO BID #180 tabs 09/21/23 05/19/24 Rx cholecalciferol (vitamin D3) 125 125 mcg PO QDAY 05/19/24 05/19/24 History mcg (5,000 unit) tablet niacinamide 500 mg tablet,extended 500 mg PO BID 05/19/24 05/19/24 History release Ejection fraction %: 55 (55-60) Have you fallen in the past year?: No PFSH Medical History Loss of hearing Wears glasses Cancer Hx of skin cancer, basal cell Anemia High cholesterol History of transesophageal echocardiography (TREV) History of echocardiogram History of stress test Atherosclerotic heart disease of [place] coronary artery without angina pectoris Alcohol abuse Essential hypertension ACS (acute coronary syndrome) Lumbar spondylosis Lumbar disc disease with radiculopathy Arthritis Former smoker Surgical History Hx of melanoma excision History of left heart catheterization (10/24/21) H/O coronary artery bypass surgery History of lumbar laminectomy Hx of colonoscopy Hx of repair of right rotator cuff History of tonsillectomy Hx of arthroscopic knee surgery Hx of arthroscopic knee surgery Hx laparoscopic cholecystectomy Hx of total knee arthroplasty Family History Brother CAD (coronary artery disease) Stenting- age 78 Mother CVA (cerebral vascular accident) Father CAD (coronary artery disease) CABG- 50-60s Social History (Updated 05/19/24 @ 09:34 by Crystal Mendoza) Smoking Status: Former smoker how long ago did patient quit smokin alcohol intake: current alcohol intake frequency: 0-2 drinks per day Alcoh (more content not included)... Normal [facility] Lipid Profileon 05-19-2024 Cholesterol [Mass/Vol] 154 mg/dL Normal 200 [facility] Comment on above: Result Comment: <200 mg/dL Desirable 200-240 mg/dL Borderline >240 mg/dL High Risk Performed By: #### L 500.3400, L500.4100 #### [facility] [address] [place], [address] Cholesterol in HDL [Mass/Vol] 73 mg/dL Normal [facility] Comment on above: Result Comment: The drugs N-Acetylcysteine and Metamizole may falsely depress this assay. Reference Range HDL <40 mg/dL Low HDL Cholesterol HDL >or= 60 mg/dL High HDL Cholesterol Performed By: #### L 500.3400, L500.4100 #### [facility] [address] [place], [address] Cholesterol in LDL [Mass/Vol] 72 mg/dL Normal 0-130 [facility] Comment on above: Performed By: #### L 500.3400, L500.4100 #### [facility] [address] [place], [address] Cholesterol in VLDL [Mass/Vol] 9 mg/dL Normal 5-40 [facility] Comment on above: Performed By: #### L 500.3400, L500.4100 #### [facility] [address] [place], [address] Triglyceride [Mass/Vol] 43 mg/dL Normal [facility] Comment on above: Result Comment: The drugs N-Acetylcysteine and Metamizole may falsely depress this assay. Serum Triglycerides Reference Interval Normal <150 mg/dL Borderline high 150 - 199 mg/dL High 200 - 499 mg/dL Very High > or = 500 mg/dL Performed By: #### L 500.3400, L500.4100 #### [facility] [address] [place], [address] Liver Profileon 05-19-2024 Albumin [Mass/Vol] 4.1 g/dL Normal 3.2-5.0 [facility] Comment on above: Performed By: #### L 500.3400, L500.4100 #### [facility] [address] [place], [address] ALK P 76 U/L Normal 45-117 [facility] Comment on above: Performed By: #### L 500.3400, L500.4100 #### [facility] [address] [place], [address] ALT [Catalytic activity/Vol] 38 U/L Normal 16-61 [facility] Comment on above: Performed By: #### L 500.3400, L500.4100 #### [facility] [address] [place], [address] AST [Catalytic activity/Vol] 30 U/L Normal 15-37 [facility] Comment on above: Performed By: #### L 500.3400, L500.4100 #### [facility] [address] [place], [address] Bilirubin [Mass/Vol] 0.80 mg/dL Normal 0.20-1.00 [facility] Comment on above: Result Comment: For patients on eltrombopag therapy, use of Dimension [place] TBIL is not recommended. Performed By: #### L 500.3400, L500.4100 #### [facility] [address] [place], [address] Bilirubin.direct [Mass/Vol] 0.19 mg/dL Normal 0.00-0.30 [facility] Comment on above: Performed By: #### L 500.3400, L500.4100 #### [facility] [address] [place], [address] Globulin (S) [Mass/Vol] 3.3 g/dL Normal 2.2-4.2 [facility] Comment on above: Performed By: #### L 500.3400, L500.4100 #### [facility] [address] [place], [address] T PROT 7.4 g/dL Normal 6.4-8.2 [facility] Comment on above: Performed By: #### L 500.3400, L500.4100 #### [facility] [address] [place], [address] NM Lymphatic vessels Views W radionuclide intra lymphaticon 10-29-2023 Patient Name: ERIC GARNICA : 1955 Exam Date/Time: 10/29/2023 09:16 Procedure: NM LYMPHOSCINTIGRAM Ordering Provider: MALDONADO III, LEWIS Reason For Exam: MALIGNANT MELANOMA LYMPHOSCINTIGRAPHY CLINICAL INDICATION: Melanoma, right forearm Approximately 1 millicurie of technetium 99-m ultrafiltered sulfur colloid was injected in four divided doses intradermally around the patient's lesion located on the right forearm utilizing sterile technique. The patient tolerated the procedure well. COMPARISON: None FINDINGS: There was prompt migration of tracer into right axillary sentinel lymph nodes. Report Dictated on Electronically Signed By: Pablo Mancilla MD Electronically Signed Date/Time: 10/29/2023 10:37 AM EDT [facility] Pablo Mancilla MD - 10/29/2023 [facility] 1955 [id number] Exam Date/Time: 10/29/2023 09:16 Procedure: NM LYMPHOSCINTIGRAM Ordering Provider: MALDONADO III, LEWIS Reason For Exam: MALIGNANT MELANOMA LYMPHOSCINTIGRAPHY CLINICAL INDICATION: Melanoma, right forearm Approximately 1 millicurie of technetium 99-m ultrafiltered sulfur colloid was injected in four divided doses intradermally around the patient's lesion located on the right forearm utilizing sterile technique. The patient tolerated the procedure well. COMPARISON: None FINDINGS: There was prompt migration of tracer into right axillary sentinel lymph nodes. Report Dictated on Electronically Signed By: Pablo Mancilla MD Electronically Signed Date/Time: 10/29/2023 10:37 AM T [facility] Radiology Study observation (narrative) [facility] NM Lymphatic vessels Views W radionuclide intra lymphaticOrdered By: Pablo Mancilla on 10-29-2023 [facility] Absolute lymphocyte countOrd ered By: Laura Ordaz on 09-27-2023 Lymphocytes Auto (Unsp spec) [#/Vol] 2.08 10*3/uL 0.83-4.51 [facility] Automated lymphocyte count a s percentage of total leukocytesOrdered By: Laura Ordaz on 09-27-2023 Lymphocytes/100 WBC Auto (Unsp spec) 36.4 % 19-41 [facility] Basophil percentageOrdered B y: Laura Ordaz on 09-27-2023 Basophils/100 WBC (Bld) 1.4 % 0-1 [facility] Eosinophils/100 WBC (Bld) 5.4 % 0-5 [facility] Hemoglobin (Bld) [Mass/Vol] 14.4 g/dL 13.0-16.5 [facility] Monocytes/100 WBC (Bld) 10.3 % 0-10 [facility] Neutrophils (Bld) [#/Vol] 2.6 10*3/uL 2.0-7.7 [facility] Neutrophils/100 WBC (Bld) 46.1 % 47-70 [facility] WBC (Bld) [#/Vol] 5.7 10*3/uL 4.4-11.0 [facility] Determination of erythrocyte mean corpuscular volume (MCV)Ordered By: Laura Ordaz on 09-27-2023 MCV (RBC) [Entitic vol] 91.8 fL 80-94 [facility] Erythrocyte distribution wid th ratioOrdered By: Laura Ordaz on 09-27-2023 Erythrocyte distribution width (RBC) [Ratio] 12.5 % 11.6-14.6 [facility] Erythrocyte distribution wid th standard deviationOrdered By: Laura Ordaz on 09-27-2023 Erythrocyte distribution width (RBC) [Entitic vol] 41.5 fL 35.1-43.9 [facility] Hematocrit Auto (Bld) [Volum e fraction]Ordered By: Laura Ordaz on 09-27-2023 Hematocrit (Bld) [Volume fraction] 43.6 % 40-54 [facility] Immature granulocytes/100 WB C Auto (Bld)Ordered By: Laura Ordaz on 09-27-2023 Immature granulocytes/100 WBC (Bld) 0.400 % 0.0-0.9 [facility] Comment on above: IG% - Immature Granu locytes (promyelocytes, myelocytes and metamyelocytes) > 1% indicates that a LEFT SHIFT is Present. Laboratory - Hematology and Cell countsOrdered By: Laura Ordaz on 09-27-2023 MCH (RBC) [Entitic mass] 30.3 pg 27.0-32.0 [facility] MCHC (RBC) [Mass/Vol] 33.0 g/dL 32-36 [facility] Nucleated RBC/100 WBC (Bld) [Ratio] 0 % 0-5 [facility] Platelet mean volume (Bld) [Entitic vol] 9.2 fL 6.2-12.0 [facility] Platelets (Bld) [#/Vol] 345 10*3/uL 150-450 [facility] No Panel InformationOrdered By: Laura Orlin on 09-27-2023 Prostate Specific Antigen Screen 1.07 ng/mL 0.00-4.00 [facility] Comment on above: This test was perfor med using the TPSA assay method for the[employer] chemistry system. Values obtained with differentassay methods cannot be used interchangably.When changing PSA assays in the course of monitoring apatient, additional sequential testing should be carriedout to confirm baseline values. 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 Intradermal injections with 25G needles were performed in locations surrounding the lesion in the right upper arm. Anterior, oblique and lateral images were obtained. FINDING: Significant activity is seen in the injection sites in right upper arm. Activity is seen within one right axillary lymph node. IMPRESSION: Right axillary sentinel lymph node Catalog Librarian: PSCB Transcribe Date/Time: Jan 19 2023 9:47A Dictated by : ROSELYN LARIOS MD This examination was interpreted and the report reviewed and electronically signed by: ROSELYN LARIOS MD on Jan 19 2023 9:48AM EST [id number] Normal [facility] Absolute lymphocyte counton 03-04-2022 Lymphocytes Auto (Unsp spec) [#/Vol] 1.97 10*3/uL 0.83-4.51 [facility] Work Phone: Basophil percentageon 2021 Basophils/100 WBC (Bld) 1.0 % 0-1 [facility] Work Phone: Eosinophils/100 WBC (Bld) 4.6 % 0-5 [facility] Work Phone: Neutrophils (Bld) [#/Vol] 3.0 10*3/uL 2.0-7.7 [facility] Work Phone: Neutrophils/100 WBC (Bld) 49.8 % 47-70 [facility] Work Phone: WBC (Bld) [#/Vol] 6.0 10*3/uL 4.4-11.0 [facility] Work Phone: Blood erythrocytes count (nu mber/volume)on 03-04-2022 RBC (Bld) [#/Vol] 4.56 10*6/uL 4.6-[facility] [facility]: Blood hemoglobin measurement (mass/volume)on 03-04-2022 Hemoglobin (Bld) [Mass/Vol] 13.6 g/dL 13.0-16.5 [facility] Work Phone: Blood lymphocytes/100 leukoc yteson 03-04-2022 Lymphocytes/100 WBC (Bld) 32.7 % 19-41 [facility] Work Phone: Blood monocytes/100 leukocyt eson 03-04-2022 Monocytes/100 WBC (Bld) 11.6 % 0-10 [facility] Work Phone: Blood platelet mean volumeon 03-04-2022 Platelet mean volume (Bld) [Entitic vol] 8.9 fL 6.2-12.0 [facility] Work Phone: Determination of erythrocyte mean corpuscular volume (MCV)on 03-04-2022 MCV (RBC) [Entitic vol] 89.3 fL 80-94 [facility] Work Phone: [phone] Hematocrit Auto (Bld) [Volum e fraction]on 03-04-2022 Hematocrit (Bld) [Volume fraction] 40.7 % 40-54 [facility] Work Phone: [phone] Laboratory - Chemistry and C hemistry - challengeon 03-04-2022 Cobalamin (Vitamin B12) [Mass/Vol] 355 pg/mL 211-911 [facility] Work Phone: [phone] Laboratory - Hematology and Cell countson 03-04-2022 Erythrocyte distribution width (RBC) [Entitic vol] 46.5 fL 35.1-43.9 [facility] Work Phone: [phone] Erythrocyte distribution width (RBC) [Ratio] 14.3 % 11.6-14.6 [facility] Work Phone: [phone] Immature granulocytes/100 WBC (Bld) 0.300 % 0.0-0.9 [facility] Work Phone: [phone] Comment on above: IG% - Immature Granu locytes (promyelocytes, myelocytes and metamyelocytes) > 1% indicates that a LEFT SHIFT is Present. MCH (RBC) [Entitic mass] 29.8 pg 27.0-32.0 [facility] Work Phone: [phone] Nucleated RBC/100 WBC (Bld) [Ratio] 0 % 0-5 [facility] Work Phone: [phone] MCHC Auto (RBC) [Mass/Vol]on 03-04-2022 MCHC (RBC) [Mass/Vol] 33.4 g/dL 32-36 [facility] Work Phone: [phone] Platelets bldon 03-04-2022 Platelets (Bld) [#/Vol] 324 10*3/uL 150-450 [facility] Work Phone: [phone] Serum or plasma folate measu rement (mass/volume)on 03-04-2022 Folate [Mass/Vol] 15.40 ng/mL 3.1-55.4 [facility] Work Phone: [phone] Absolute lymphocyte counton 11-21-2021 Lymphocytes Auto (Unsp spec) [#/Vol] 1.66 10*3/uL 0.83-4.51 [facility] Work Phone: Basophil percentageon 2021 Basophils/100 WBC (Bld) 0.8 % 0-1 [facility] Work Phone: Chloride [Moles/Vol] 108 mmol/L 98-107 [facility] Work Phone: Eosinophils/100 WBC (Bld) 4.7 % 0-5 [facility] Work Phone: Glucose [Mass/Vol] 97 mg/dL 74-106 [facility] Work Phone: Neutrophils (Bld) [#/Vol] 2.5 10*3/uL 2.0-7.7 [facility] Work Phone: Neutrophils/100 WBC (Bld) 49.6 % 47-70 [facility] Work Phone: Potassium [Moles/Vol] 3.9 mmol/L 3.5-5.1 [facility] Work Phone: Sodium [Moles/Vol] 138 mmol/L 136-145 [facility] Work Phone: WBC (Bld) [#/Vol] 5.1 10*3/uL 4.4-11.0 [facility] Work Phone: Blood erythrocytes count (nu mber/volume)on 11-21-2021 RBC (Bld) [#/Vol] 3.40 10*6/uL 4.6-6.2 [facility] Work Phone: Blood hemoglobin measurement (mass/volume)on 11-21-2021 Hemoglobin (Bld) [Mass/Vol] 10.4 g/dL 13.0-16.5 [facility] Work Phone: Blood lymphocytes/100 leukoc yteson 11-21-2021 Lymphocytes/100 WBC (Bld) 32.5 % 19-41 [facility] Work Phone: Blood monocytes/100 leukocyt eson 11-21-2021 Monocytes/100 WBC (Bld) 11.6 % 0-10 [facility] Work Phone: Blood platelet mean volumeon 11-21-2021 Platelet mean volume (Bld) [Entitic vol] 8.7 fL 6.2-12.0 [facility] Work Phone: [phone] Determination of erythrocyte mean corpuscular volume (MCV)on 11-21-2021 MCV (RBC) [Entitic vol] 92.4 fL 80-94 [facility] Work Phone: [phone] Hematocrit Auto (Bld) [Volum e fraction]on 11-21-2021 Hematocrit (Bld) [Volume fraction] 31.4 % 40-54 [facility] Work Phone: Laboratory - Chemistry and C hemistry - challengeon 11-21-2021 CO2 [Moles/Vol] 25.0 mmol/L 21.0-32.0 [facility] Work Phone: [phone] Magnesium [Mass/Vol] 1.9 mg/dL 1.6-2.6 [facility] Work Phone: [phone] Urea nitrogen/Creatinine [Mass ratio] 19.7 mg/mg 10-20 [facility] Work Phone: [phone] Laboratory - Hematology and Cell countson 11-21-2021 Erythrocyte distribution width (RBC) [Entitic vol] 43.6 fL 35.1-43.9 [facility] Work Phone: [phone] Erythrocyte distribution width (RBC) [Ratio] 12.9 % 11.6-14.6 [facility] Work Phone: [phone] Immature granulocytes/100 WBC (Bld) 0.800 % 0.0-0.9 [facility] Work Phone: [phone] Comment on above: IG% - Immature Granu locytes (promyelocytes, myelocytes and metamyelocytes) > 1% indicates that a LEFT SHIFT is Present. MCH (RBC) [Entitic mass] 30.6 pg 27.0-32.0 [facility] Work Phone: Nucleated RBC/100 WBC (Bld) [Ratio] 0 % 0-5 [facility] Work Phone: MCHC Auto (RBC) [Mass/Vol]on 11-21-2021 MCHC (RBC) [Mass/Vol] 33.1 g/dL 32-36 [facility] Work Phone: No Panel Informationon 11-21 Estimated GFR (MDRD) Amer 100 mL/min >60 [facility] Work Phone: Comment on above: GFR Calc Estimated GFR (MDRD) Non-Af Amer 83 mL/min >60 [facility] Work Phone: Comment on above: Non- GFR Calc Platelets bldon 11-21-2021 Platelets (Bld) [#/Vol] 488 10*3/uL 150-450 [facility] Work Phone: Serum or plasma calcium irasema urement (mass/volume)on 11-21-2021 Calcium [Mass/Vol] 9.4 mg/dL 8.5-10.1 [facility] Work Phone: Serum or plasma creatinine m easurement (mass/volume)on 11-21-2021 Creatinine [Mass/Vol] 0.96 mg/dL 0.70-1.30 [facility] Work Phone: Comment on above: The validity of the calculated GFR & GFRAA in patients over 70 years has not been determined. Clinical correlation is essential. Serum or plasma urea nitroge n measurement (mass/volume)on 11-21-2021 Urea nitrogen [Mass/Vol] 19 mg/dL 7-18 [facility] Work Phone: Thin prep Papanicolaou smear with manual screeningon 11-21-2021 Thin prep Papanicolaou smear with manual screening 5 5-15 [facility] Work Phone: Basic Metabolic Panelon 10-14 Calcium [Mass/Vol] 8.5 mg/dL Normal 8.4-10.4 [facility] Comment on above: Performed By: #### M G3, BMP3, HEMOG #### [facility] [address] [place] [address] Anion gap [Moles/Vol] 9 mmol/L Normal 3-13 [facility] Comment on above: Performed By: #### M G3, BMP3, HEMOG #### [facility] [address] [place] [address] CO2 [Moles/Vol] 23 mmol/L Normal 22-30 [facility] Comment on above: Performed By: #### M G3, BMP3, HEMOG #### [facility] [address] [place] [address] Creatinine [Mass/Vol] 0.91 mg/dL Normal 0.52-1.25 [facility] Comment on above: Performed By: #### M G3, BMP3, HEMOG #### [facility] [address] [place] [address] GFR/1.73 sq M.predicted among blacks MDRD (S/P/Bld) [Vol rate/Area] mL/min/{1.73_m2} Normal >60 [facility] Comment on above: Performed By: #### M G3, BMP3, HEMOG #### [facility] [address] [place] [address] GFR/1.73 sq M.predicted among non-blacks MDRD (S/P/Bld) [Vol rate/Area] 86.6 mL/min/{1.73_m2} Normal >60 [facility] Comment on above: Result Comment: KDIG O guidelines provide the following GFR categories: Stage GFR(ml/min/1.73 m2) Terms G1 >=90 Normal or high G2 60-89 Mildly decreased* G3a 45-59 Mildly to moderately decreased G3b 30-44 Moderately to severely decreased G4 15-29 Severely decreased G5 <15 Kidney failure *Relative to young adult level. In the absence of evidence of kidney damage, neither GFR category G1 nor G2 fulfill the criteria for CKD. The CKD-EPI equation is validated in individuals 18 years of age and older. Currently the best equation for estimating glomerular filtration rate (GFR) from serum creatinine in children is the Bedside Honeycutt equation. It is less accurate in patients with extremes of muscle mass, restriction of dietary protein, ingestion of creatine, extra-renal metabolism of creatinine, or treatment with medications that affect renal tubular creatinine secretion. Performed By: #### SAMY Dhillon, HEMOG #### [facility] [address] [place] [address] Glucose [Mass/Vol] 121 mg/dL High 70-100 [facility] Comment on above: Performed By: #### SAMY Dhillon, HEMOG #### [facility] [address] [place] [address] Urea nitrogen [Mass/Vol] 15 mg/dL Normal 7-17 [facility] Comment on above: Performed By: #### SAMY Dhillon, HEMOG #### [facility] [address] [place] [address] Chloride [Moles/Vol] 99 mmol/L Normal 98-107 [facility] Comment on above: Performed By: #### SAMY Dhillon, HEMOG #### [facility] [address] [place] [address] Potassium [Moles/Vol] 3.8 mmol/L Normal 3.5-5.1 [facility] Comment on above: Performed By: #### SAMY Dhillon, HEMOG #### [facility] [address] [place] [address] Sodium [Moles/Vol] 131 mmol/L Low 135-145 [facility] Comment on above: Performed By: #### SAMY Dhillon, HEMOG #### [facility] [address] [place] [address] CR Chest Portableon 11-01-19 22 CR Chest Portable Patient Name: ERIC GARNICA Diagnostic Radiology ACCESSION EXAM DATE/TIME PROCEDURE ORDERING PROVIDER [id number] 10/31/2021 06:09 EDT CR Chest Portable [id number] LETICIA PURDY CPT code 58090 Reason For Exam (CR Chest Portable) Shortness of breath Report CLINICAL INFORMATION: Shortness of breath. Portable view of the chest at 0525 hours is provided and compared with a previous study dated 10/30/2021. 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 The cardiac silhouette and mediastinum are otherwise within normal limits. The lungs are free of infiltrate or pleural effusion. Mild atelectasis is redemonstrated in the left lung base. IMPRESSION: 1. Postoperative changes (CABG). 2. No significant infiltrates. Report Dictated on Workstation: [id number] Final Dictated: 10/31/2021 9:59 am Dictating Physician: MD RODRIGUEZ JEFFREY Signed Date and Time: 10/31/2021 10:00 am Signed by: MD RODRIGUEZ JEFFREY Transcribed Date and Time: 10/31/2021 9:59 Normal [facility] Hemogramon 10-31-2021 Erythrocyte distribution width (RBC) [Ratio] 12.3 % Normal 11.5-14.5 [facility] Comment on above: Performed By: #### SAMY Dhillon, HEMOG #### [address] [address] [place], [place] Hematocrit (Bld) [Volume fraction] 21.7 % Low 40.0-52.0 [facility] Comment on above: Performed By: #### SAMY Dhillon, HEMOG #### [address] [address] [place], [place] Hemoglobin (Bld) [Mass/Vol] 7.4 g/dL Low 13.0-18.0 [facility] Comment on above: Performed By: #### JARETT Dhillon3, HEMOG #### [address] [address] [place], [place] MCH (RBC) [Entitic mass] 31.4 pg Normal 26.0-34.0 [facility] Comment on above: Performed By: #### JARETT Dhillon3, HEMOG #### [address] [address] [place], [place] MCHC 34.4 % Normal 32.0-36.0 [facility] Comment on above: Performed By: #### Ajay Cao BMP3, HEMOG #### [address] [address] [place], [place] MCV (RBC) [Entitic vol] 91.3 fL Normal 80.0-98.0 [facility] Comment on above: Performed By: #### JARETT Dhillon3, HEMOG #### [facility] [address] [place], [place] Platelet mean volume (Bld) [Entitic vol] 7.6 fL Normal 7.4-10.4 [facility] Comment on above: Performed By: #### JARETT Dhillon3, HEMOG #### [address] [address] [place], [place] Platelets (Bld) [#/Vol] 231 10*3/uL Normal 140-440 [facility] Comment on above: Performed By: #### JARETT Dhillon3, HEMOG #### [address] [address] [address] [place], [place] RBC (Bld) [#/Vol] 2.37 10*6/uL Low 4.40-5.90 [facility] Comment on above: Performed By: #### JARETT Dhillon3, HEMOG #### [address] [address] [place], [place] WBC (Bld) [#/Vol] 6.3 10*3/uL Normal 3.6-10.7 [facility] Comment on above: Performed By: #### Ajay Cao BMP3, HEMOG #### [address] [address] [address] [place], [place] Magnesiumon 10-31-2021 Magnesium [Mass/Vol] 2.0 mg/dL Normal 1.6-2.3 [facility] Comment on above: Performed By: #### JARETT Dhillon3, HEMOG #### [address] [address] [address] [place], [place] Basic Metabolic Panelon 10-14 Anion gap [Moles/Vol] 6 mmol/L Normal 3-13 [facility] Comment on above: Performed By: #### Ajay Cao BMP3, HEMOG #### [address] [address] [place], [place] Calcium [Mass/Vol] 8.6 mg/dL Normal 8.4-10.4 [facility] Comment on above: Performed By: #### M G3, BMP3, HEMOG #### [facility] [address] [place], [place] CO2 [Moles/Vol] 24 mmol/L Normal 22-30 [facility] Comment on above: Performed By: #### M G3, BMP3, HEMOG #### [facility] [address] [place], [place] Glucose [Mass/Vol] 132 mg/dL High 70-100 [facility] Comment on above: Performed By: #### M G3, BMP3, HEMOG #### [facility] [address] [place], [place] Urea nitrogen [Mass/Vol] 15 mg/dL Normal 7-17 [facility] Comment on above: Performed By: #### M G3, BMP3, HEMOG #### [facility] [address] [place], [place] Creatinine [Mass/Vol] 0.89 mg/dL Normal 0.52-1.25 [facility] Comment on above: Performed By: #### M G3, BMP3, HEMOG #### [facility] [address] [place], [place] GFR/1.73 sq M.predicted among blacks MDRD (S/P/Bld) [Vol rate/Area] mL/min/{1.73_m2} Normal >60 [facility] Comment on above: Performed By: #### M G3, BMP3, HEMOG #### [facility] [address] [place], [place] GFR/1.73 sq M.predicted among non-blacks MDRD (S/P/Bld) [Vol rate/Area] 88.2 mL/min/{1.73_m2} Normal >60 [facility] Comment on above: Result Comment: KDIG O guidelines provide the following GFR categories: Stage GFR(ml/min/1.73 m2) Terms G1 >=90 Normal or high G2 60-89 Mildly decreased* G3a 45-59 Mildly to moderately decreased G3b 30-44 Moderately to severely decreased G4 15-29 Severely decreased G5 <15 Kidney failure *Relative to young adult level. In the absence of evidence of kidney damage, neither GFR category G1 nor G2 fulfill the criteria for CKD. The CKD-EPI equation is validated in individuals 18 years of age and older. Currently the best equation for estimating glomerular filtration rate (GFR) from serum creatinine in children is the Bedside Honeycutt equation. It is less accurate in patients with extremes of muscle mass, restriction of dietary protein, ingestion of creatine, extra-renal metabolism of creatinine, or treatment with medications that affect renal tubular creatinine secretion. Performed By: #### SAMY Dhillon, HEMOG #### [facility] [address] [place] [address] Potassium [Moles/Vol] 3.9 mmol/L Normal 3.5-5.1 [facility] Comment on above: Performed By: #### SAMY Dhillon, HEMOG #### [facility] [address] [place] [address] Chloride [Moles/Vol] 100 mmol/L Normal 98-107 [facility] Comment on above: Performed By: #### SAMY Dhillon, HEMOG #### [facility] [address] [place] [address] Sodium [Moles/Vol] 129 mmol/L Low 135-145 [facility] Comment on above: Performed By: #### SAMY Dhillon, HEMOG #### [facility] [address] [place] [address] CR Chest Portableon 10-31-19 22 CR Chest Portable [facility]: [id number] ACCESSION EXAM DATE/TIME PROCEDURE ORDERING PROVIDER [id number] 10/30/2021 06:13 EDT CR Chest Portable [id number] LETICIA PURDY CPT code 14619 Reason For Exam (CR Chest Portable) Shortness of breath Report CHEST - PORTABLE: CLINICAL INDICATION: Respiratory distress for follow up TECHNIQUE: Portable AP COMPARISON: One day ago FINDINGS: Life support devices: Right jugular venous sheath. Left chest tube and mediastinal drain removed Heart/Mediastinum: Normal heart size. Mediastinal clips Lungs/Pleura: Elongated opacities at the lung bases, likely atelectasis. No other upper lobe consolidation. No pneumothorax. IMPRESSION: Bibasilar atelectasis. Report Dictated on Final Dictated: 10/30/2021 6:46 am Dictating Physician: MD CARCAMO JEFFREY Signed Date and Time: 10/30/2021 6:47 am Signed by: MD CARCAMO JEFFREY Transcribed Date and Time: 10/30/2021 6:46 Normal [facility] Glucose,Bedsideon 10-30-2021 Glucose [Mass/Vol] 124 mg/dL High 70-100 [facility] Comment on above: Result Comment: Test performed by glucose meter. Results may be 10%-15% lower than serum/plasma values. (CLIA ID [id number]) Performed By: #### SAMY Dhillon, HEMOG #### [facility] [address] [place], [place] Glucose [Mass/Vol] 109 mg/dL High 70-100 [facility] Comment on above: Result Comment: Test performed by glucose meter. Results may be 10%-15% lower than serum/plasma values. (CLIA ID [id number]) Performed By: #### B GLU #### [facility] [address] [place], [place] Glucose [Mass/Vol] 150 mg/dL High 70-100 [facility] Comment on above: Result Comment: Test performed by glucose meter. Results may be 10%-15% lower than serum/plasma values. (CLIA ID [id number]) Performed By: #### SAMY Dhillon, HEMOG #### [facility] [address] [place] [address] Hemogramon 10-30-2021 Erythrocyte distribution width (RBC) [Ratio] 12.8 % Normal 11.5-14.5 [facility] Comment on above: Performed By: #### JARETT Dhillon3, HEMOG #### [facility] [address] [place] [address] Hematocrit (Bld) [Volume fraction] 23.9 % Low 40.0-52.0 [facility] Comment on above: Performed By: #### M G3, BMP3, HEMOG #### [facility] [address] [place], [place] Hemoglobin (Bld) [Mass/Vol] 8.2 g/dL Low 13.0-18.0 [facility] Comment on above: Performed By: #### M G3, BMP3, HEMOG #### [facility] [address] [place], [place] MCH (RBC) [Entitic mass] 31.5 pg Normal 26.0-34.0 [facility] Comment on above: Performed By: #### M G3, BMP3, HEMOG #### [facility] [address] [place], [place] MCHC 34.3 % Normal 32.0-36.0 [facility] Comment on above: Performed By: #### M G3, BMP3, HEMOG #### [address] [address] [address] [place], [place] MCV (RBC) [Entitic vol] 91.8 fL Normal 80.0-98.0 [facility] Comment on above: Performed By: #### Ajay G3, BMP3, HEMOG #### [address] [address] [address] [place], [place] Platelet mean volume (Bld) [Entitic vol] 7.6 fL Normal 7.4-10.4 [facility] Comment on above: Performed By: #### Ajay G3, BMP3, HEMOG #### [address] [address] [address] [place], [place] Platelets (Bld) [#/Vol] 201 10*3/uL Normal 140-440 [facility] Comment on above: Performed By: #### M G3, BMP3, HEMOG #### [facility] [address] [place], [place] RBC (Bld) [#/Vol] 2.61 10*6/uL Low 4.40-5.90 [facility] Comment on above: Performed By: #### M G3, BMP3, HEMOG #### [facility] [address] [place], [place] WBC (Bld) [#/Vol] 7.2 10*3/uL Normal 3.6-10.7 [facility] Comment on above: Performed By: #### M G3, BMP3, HEMOG #### [facility] [address] [place] [address] Magnesiumon 10-30-2021 Magnesium [Mass/Vol] 2.1 mg/dL Normal 1.6-2.3 [facility] Comment on above: Performed By: #### M G3, BMP3, HEMOG #### [facility] [address] [place] [address] Basic Metabolic Panelon 10-14 Anion gap [Moles/Vol] 5 mmol/L Normal 3-13 [facility] Comment on above: Performed By: #### H EMDF, BMP3 #### [address] [address] [address] [place] [address] Calcium [Mass/Vol] 8.5 mg/dL Normal 8.4-10.4 [facility] Comment on above: Performed By: #### H EMDF, BMP3 #### [facility] [address] [place] [address] CO2 [Moles/Vol] 26 mmol/L Normal 22-30 [facility] Comment on above: Performed By: #### H EMDF, BMP3 #### [facility] [address] [place], [place] Creatinine [Mass/Vol] 0.90 mg/dL Normal 0.52-1.25 [facility] Comment on above: Performed By: #### H EMDF, BMP3 #### [facility] [address] [place] [address] GFR/1.73 sq M.predicted among blacks MDRD (S/P/Bld) [Vol rate/Area] mL/min/{1.73_m2} Normal >60 [facility] Comment on above: Performed By: #### H EMDF, BMP3 #### [place] [address] [place], [place] GFR/1.73 sq M.predicted among non-blacks MDRD (S/P/Bld) [Vol rate/Area] 87.8 mL/min/{1.73_m2} Normal >60 [facility] Comment on above: Result Comment: KDIG O guidelines provide the following GFR categories: Stage GFR(ml/min/1.73 m2) Terms G1 >=90 Normal or high G2 60-89 Mildly decreased* G3a 45-59 Mildly to moderately decreased G3b 30-44 Moderately to severely decreased G4 15-29 Severely decreased G5 <15 Kidney failure *Relative to young adult level. In the absence of evidence of kidney damage, neither GFR category G1 nor G2 fulfill the criteria for CKD. The CKD-EPI equation is validated in individuals 18 years of age and older. Currently the best equation for estimating glomerular filtration rate (GFR) from serum creatinine in children is the Bedside Honeycutt equation. It is less accurate in patients with extremes of muscle mass, restriction of dietary protein, ingestion of creatine, extra-renal metabolism of creatinine, or treatment with medications that affect renal tubular creatinine secretion. Performed By: #### H ANGELA BMP3 #### [place] [address] [place], [place] Glucose [Mass/Vol] 114 mg/dL High 70-100 [facility] Comment on above: Performed By: #### H ANGELA BMP3 #### [address] Urea nitrogen [Mass/Vol] 14 mg/dL Normal 7-17 [facility] Comment on above: Performed By: #### H ANGELA BMP3 #### [place] [address] [place], [place] Chloride [Moles/Vol] 98 mmol/L Normal 98-107 [facility] Comment on above: Performed By: #### H ANGELA BMP3 #### [address] Potassium [Moles/Vol] 3.4 mmol/L Low 3.5-5.1 [facility] Comment on above: Performed By: #### H ANGELA BMP3 #### [address] Sodium [Moles/Vol] 128 mmol/L Low 135-145 [facility] Comment on above: Performed By: #### H JARETT MILLER3 #### [facility] [address] [place] [address] CR Chest Portableon 10-30-19 CR Chest Portable Patient Name: ERIC GARNICA Diagnostic Radiology ACCESSION EXAM DATE/TIME PROCEDURE ORDERING PROVIDER [id number] 10/29/2021 06:21 EDT CR Chest Portable [id number] LETICIA MULTANI CPT code 06594 Reason For Exam (CR Chest Portable) Shortness of breath Report PORTABLE CHEST CLINICAL INDICATION: Shortness of breath TECHNIQUE: Portable AP COMPARISON: 10/28/2021 FINDINGS: Right IJ sheath in place. Mediastinal and left-sided chest tubes stable in place. Low lung volumes with patchy bibasilar subsegmental atelectasis. No focal consolidation or pulmonary edema. No sizable pleural effusions or pneumothorax. Stable cardiomediastinal contours. Status post median sternotomy. Degenerative change of the thoracic spine is noted. IMPRESSION: Interval removal of right IJ [place]-Michaela catheter. Otherwise, no significant change from the prior exam. Report Dictated on Workstation: [id number] Dictated: 10/29/2021 8:39 am Dictating Physician: MD VILLEGAS KEVIN Signed Date and Time: 10/29/2021 9:00 am Signed by: MD VILLEGAS KEVIN Transcribed Date and Time: 10/29/2021 8:42 Normal [facility] Glucose,Bedsideon 10-29-2021 Glucose [Mass/Vol] 171 mg/dL High 70-100 [facility] Comment on above: Result Comment: Test performed by glucose meter. Results may be 10%-15% lower than serum/plasma values. (CLIA ID [id number]) Performed By: #### H JARETT MILLER3 #### [facility] [address] [place] [address] Glucose [Mass/Vol] 117 mg/dL High 70-100 [facility] Comment on above: Result Comment: Test performed by glucose meter. Results may be 10%-15% lower than serum/plasma values. (CLIA ID [id number]) Performed By: #### M G3, BMP3, HEMOG #### [place] [address] [place], [place] Glucose [Mass/Vol] 149 mg/dL High 70-100 [facility] Comment on above: Result Comment: Test performed by glucose meter. Results may be 10%-15% lower than serum/plasma values. (CLIA ID [id number]) Performed By: #### M G3, BMP3, HEMOG #### [place] [address] [place], [place] Hemogramon 10-29-2021 Erythrocyte distribution width (RBC) [Ratio] 12.8 % Normal 11.5-14.5 [facility] Comment on above: Performed By: #### H EMDF, BMP3 #### [place] [address] [place], [place] Hematocrit (Bld) [Volume fraction] 26.3 % Low 40.0-52.0 [facility] Comment on above: Performed By: #### H EMDF, BMP3 #### [place] [address] [place], [place] Hemoglobin (Bld) [Mass/Vol] 8.9 g/dL Low 13.0-18.0 [facility] Comment on above: Performed By: #### H EMDF, BMP3 #### [place] [address] [place], [place] MCH (RBC) [Entitic mass] 31.2 pg Normal 26.0-34.0 [facility] Comment on above: Performed By: #### H EMDF, BMP3 #### [place] [address] [place] MCHC 33.9 % Normal 32.0-36.0 [facility] Comment on above: Performed By: #### H EMDF, BMP3 #### [address] MCV (RBC) [Entitic vol] 92.1 fL Normal 80.0-98.0 [facility] Comment on above: Performed By: #### H EMDF, BMP3 #### [facility] [address] [place] [address] Platelet mean volume (Bld) [Entitic vol] 7.5 fL Normal 7.4-10.4 [facility] Comment on above: Performed By: #### H EMDF, BMP3 #### [facility] [address] [place] [address] Platelets (Bld) [#/Vol] 192 10*3/uL Normal 140-440 [facility] Comment on above: Performed By: #### H EMDF, BMP3 #### [facility] [address] [place] [address] RBC (Bld) [#/Vol] 2.85 10*6/uL Low 4.40-5.90 [facility] Comment on above: Performed By: #### H EMDF, BMP3 #### [place] [address] [place], [place] WBC (Bld) [#/Vol] 7.6 10*3/uL Normal 3.6-10.7 [facility] Comment on above: Performed By: #### H EMDF, BMP3 #### [facility] [address] [place], [place] Leukodepleted Red Cellson Leukodepleted Red Cells Leukodepleted Red Cells: [id number] released 10/29/21 00:02 [facility] Unit Blood Type: O Unit Blood Rh: POS Blood Product Code: AS1 Unit Number: [id number] Unit Status: released Barcoded Unit Number: =[id number] Barcoded Product Code: = Barcoded ABO/Rh: =%5100 Unit Expiration: Leukodepleted Red Cells: [id number] released 10/29/21 00:02 [facility] Unit Blood Type: O Unit Blood Rh: POS Blood Product Code: AS1 Unit Number: [id number] Unit Status: released Barcoded Unit Number: =[id number] Barcoded Product Code: = Barcoded ABO/Rh: =%5100 Unit Expiration: Normal [facility] Comment on above: Performed By: #### M G3, BMP3, HEMOG #### [facility] [address] [place], [place] Magnesiumon 10-29-2021 Magnesium [Mass/Vol] 1.9 mg/dL Normal 1.6-2.3 [facility] Comment on above: Performed By: #### H EMDF, BMP3 #### [facility] [address] [place], [place] Basic Metabolic Panelon 10-14 Anion gap [Moles/Vol] 7 mmol/L Normal 3-13 [facility] Comment on above: Performed By: #### M G3, BMP3, HEMOG #### [place] [address] [place], [place] Calcium [Mass/Vol] 8.6 mg/dL Normal 8.4-10.4 [facility] Comment on above: Performed By: #### Ajay G3, BMP3, HEMOG #### [place] [address] [place], [place] CO2 [Moles/Vol] 21 mmol/L Low 22-30 [facility] Comment on above: Performed By: #### M G3, BMP3, HEMOG #### [place] [address] [place], [place] Glucose [Mass/Vol] 94 mg/dL Normal 70-100 [facility] Comment on above: Performed By: #### M G3, BMP3, HEMOG #### [facility] [address] [place], [place] Urea nitrogen [Mass/Vol] 19 mg/dL High 7-17 [facility] Comment on above: Performed By: #### M G3, BMP3, HEMOG #### [facility] [address] [place], [place] Creatinine [Mass/Vol] 0.99 mg/dL Normal 0.52-1.25 [facility] Comment on above: Performed By: #### M G3, BMP3, HEMOG #### [place] [address] [place] [address] GFR/1.73 sq M.predicted among blacks MDRD (S/P/Bld) [Vol rate/Area] mL/min/{1.73_m2} Normal >60 [facility] Comment on above: Performed By: #### SAMY Dhillon HEMOG #### [facility] [address] [place] [address] GFR/1.73 sq M.predicted among non-blacks MDRD (S/P/Bld) [Vol rate/Area] 78.3 mL/min/{1.73_m2} Normal >60 [facility] Comment on above: Result Comment: KDIG O guidelines provide the following GFR categories: Stage GFR(ml/min/1.73 m2) Terms G1 >=90 Normal or high G2 60-89 Mildly decreased* G3a 45-59 Mildly to moderately decreased G3b 30-44 Moderately to severely decreased G4 15-29 Severely decreased G5 <15 Kidney failure *Relative to young adult level. In the absence of evidence of kidney damage, neither GFR category G1 nor G2 fulfill the criteria for CKD. The CKD-EPI equation is validated in individuals 18 years of age and older. Currently the best equation for estimating glomerular filtration rate (GFR) from serum creatinine in children is the Bedside Honeycutt equation. It is less accurate in patients with extremes of muscle mass, restriction of dietary protein, ingestion of creatine, extra-renal metabolism of creatinine, or treatment with medications that affect renal tubular creatinine secretion. Performed By: #### SAMY Dhillon, HEMOG #### [place] [address] [place], [place] Chloride [Moles/Vol] 108 mmol/L High 98-107 [facility] Comment on above: Performed By: #### SAMY Dhillon, HEMOG #### [address] [address] Potassium [Moles/Vol] 4.1 mmol/L Normal 3.5-5.1 [facility] Comment on above: Performed By: #### SAMY Dhillon, HEMOG #### [facility] [address] [place] [address] Sodium [Moles/Vol] 136 mmol/L Normal 135-145 [facility] Comment on above: Performed By: #### SAMY Dhillon, HEMOG #### [facility] [address] [place] [address] CR Chest Portableon 10-29-19 CR Chest Portable Patient Name: ERIC GARNICA Diagnostic Radiology ACCESSION EXAM DATE/TIME PROCEDURE ORDERING PROVIDER [id number] 10/28/2021 06:35 EDT CR Chest Portable [id number] -LETICIA MAZARIEGOS CPT code 85509 Reason For Exam (CR Chest Portable) Shortness of breath Report PORTABLE CHEST X-RAY CLINICAL INDICATION: Shortness of breath A portable frontal view of the chest was obtained. COMPARISON: 10/27/2021 FINDINGS: Heart size is within normal limits. Endotracheal tube and feeding tube have been removed. Right jugular [place]-Michaela catheter, mediastinal drain, and left basilar chest tube are unchanged. There is bilateral lower lobe atelectasis, similar to the prior study. No new areas of consolidation are seen. There is no pleural effusion or evidence of pneumothorax. There are degenerative changes of the spine. IMPRESSION: Endotracheal tube and feeding tube have been removed. Bilateral basilar atelectasis, similar to the prior examination. Report Dictated on Final Dictated: 10/28/2021 8:11 am Dictating Physician: MD MANCILLA JONATHAN R Signed Date and Time: 10/28/2021 8:13 am Signed by: MD MANCILLA JONATHAN R Transcribed Date and Time: 10/28/2021 8:11 Normal [facility] Glucose,Bedsideon 10-28-2021 Glucose [Mass/Vol] 160 mg/dL High 70-100 [facility] Comment on above: Result Comment: Test performed by glucose meter. Results may be 10%-15% lower than serum/plasma values. (CLIA ID [id number]) Performed By: #### SAMY Dhillon, HEMOG #### [facility] [address] [place] [address] Glucose [Mass/Vol] 97 mg/dL Normal 70-100 [facility] Comment on above: Result Comment: Test performed by glucose meter. Results may be 10%-15% lower than serum/plasma values. (CLIA ID [id number]) Performed By: #### M G3, BMP3, HEMOG #### [facility] [address] [place] [address] Glucose [Mass/Vol] 66 mg/dL Low 70-100 [facility] Comment on above: Result Comment: Test performed by glucose meter. Results may be 10%-15% lower than serum/plasma values. (CLIA ID [id number]) Performed By: #### H EMDF, BMP3 #### [facility] [address] [place] [address] Glucose [Mass/Vol] 56 mg/dL Low 70-100 [facility] Comment on above: Result Comment: Test performed by glucose meter. Results may be 10%-15% lower than serum/plasma values. (CLIA ID [id number]) Performed By: #### H EMDF, BMP3 #### [facility] [place] [address] [place] [address] Glucose [Mass/Vol] 93 mg/dL Normal 70-100 [facility] Comment on above: Result Comment: Test performed by glucose meter. Results may be 10%-15% lower than serum/plasma values. (CLIA ID [id number]) Performed By: #### M G3, BMP3, HEMOG #### [place] [address] [place] [address] Glucose [Mass/Vol] 136 mg/dL High 70-100 [facility] Comment on above: Result Comment: Test performed by glucose meter. Results may be 10%-15% lower than serum/plasma values. (CLIA ID [id number]) Performed By: #### B GLU #### [place] [address] [place] [address] Glucose [Mass/Vol] 146 mg/dL High 70-100 [facility] Comment on above: Result Comment: Test performed by glucose meter. Results may be 10%-15% lower than serum/plasma values. (CLIA ID [id number]) Performed By: #### H EMDF, BMP3 #### [facility] [address] [place] [address] Glucose [Mass/Vol] 130 mg/dL High 70-100 [facility] Comment on above: Result Comment: Test performed by glucose meter. Results may be 10%-15% lower than serum/plasma values. (CLIA ID [id number]) Performed By: #### M G3, BMP3, HEMOG #### [facility] [address] [place] [address] Glucose [Mass/Vol] 126 mg/dL High 70-100 [facility] Comment on above: Result Comment: Test performed by glucose meter. Results may be 10%-15% lower than serum/plasma values. (CLIA ID [id number]) Performed By: #### B GLU #### [place] [address] [place] [address] Glucose [Mass/Vol] 124 mg/dL High 70-100 [facility] Comment on above: Result Comment: Test performed by glucose meter. Results may be 10%-15% lower than serum/plasma values. (CLIA ID [id number]) Performed By: #### B GLU #### [place] [address] [place] [address] Glucose [Mass/Vol] 121 mg/dL High 70-100 [facility] Comment on above: Result Comment: Test performed by glucose meter. Results may be 10%-15% lower than serum/plasma values. (CLIA ID [id number]) Performed By: #### H EMDF, BMP3 #### [facility] [address] [place] [address] Glucose [Mass/Vol] 179 mg/dL High 70-100 [facility] Comment on above: Result Comment: Test performed by glucose meter. Results may be 10%-15% lower than serum/plasma values. (CLIA ID [id number]) Performed By: #### B GLU #### [place] [address] [place] [address] Glucose [Mass/Vol] 95 mg/dL Normal 70-100 [facility] Comment on above: Result Comment: Test performed by glucose meter. Results may be 10%-15% lower than serum/plasma values. (CLIA ID [id number]) Performed By: #### M G3, BMP3, HEMOG #### [facility] [address] [place] [address] Glucose [Mass/Vol] 92 mg/dL Normal 70-100 [facility] Comment on above: Result Comment: Test performed by glucose meter. Results may be 10%-15% lower than serum/plasma values. (CLIA ID [id number]) Performed By: #### B GLU #### [facility] [address] [place] [address] Glucose [Mass/Vol] 95 mg/dL Normal 70-100 [facility] Comment on above: Result Comment: Test performed by glucose meter. Results may be 10%-15% lower than serum/plasma values. (CLIA ID [id number]) Performed By: #### B GLU #### [place] [address] [place] [address] Glucose [Mass/Vol] 103 mg/dL High 70-100 [facility] Comment on above: Result Comment: Test performed by glucose meter. Results may be 10%-15% lower than serum/plasma values. (CLIA ID [id number]) Performed By: #### B GLU #### [facility] [place] [address] [place] [address] Glucose [Mass/Vol] 101 mg/dL High 70-100 [facility] Comment on above: Result Comment: Test performed by glucose meter. Results may be 10%-15% lower than serum/plasma values. (CLIA ID [id number]) Performed By: #### M G3, BMP3, HEMOG #### [facility] [address] [place] [address] Glucose [Mass/Vol] 120 mg/dL High 70-100 [facility] Comment on above: Result Comment: Test performed by glucose meter. Results may be 10%-15% lower than serum/plasma values. (CLIA ID [id number]) Performed By: #### B GLU #### [facility] [address] [place] [address] Glucose [Mass/Vol] 133 mg/dL High 70-100 [facility] Comment on above: Result Comment: Test performed by glucose meter. Results may be 10%-15% lower than serum/plasma values. (CLIA ID [id number]) Performed By: #### JARETT Dhillon3, HEMOG #### [place] [address] [place], [place] Glucose [Mass/Vol] 143 mg/dL High 70-100 [facility] Comment on above: Result Comment: Test performed by glucose meter. Results may be 10%-15% lower than serum/plasma values. (CLIA ID [id number]) Performed By: #### B GLU #### [place] [address] [place], [place] Hemogramon 10-28-2021 Erythrocyte distribution width (RBC) [Ratio] 12.6 % Normal 11.5-14.5 [facility] Comment on above: Performed By: #### SAMY Dhillon, HEMOG #### [place] [address] [place], [place] Hematocrit (Bld) [Volume fraction] 26.5 % Low 40.0-52.0 [facility] Comment on above: Performed By: #### SAMY Dhillon, HEMOG #### [place] [address] [place], [place] Hemoglobin (Bld) [Mass/Vol] 8.9 g/dL Low 13.0-18.0 [facility] Comment on above: Performed By: #### Ajay Cao BMPMeri, HEMOG #### [place] [address] [place], [place] MCH (RBC) [Entitic mass] 31.1 pg Normal 26.0-34.0 [facility] Comment on above: Performed By: #### SAMY Dhillon, HEMOG #### [place] [address] [place] MCHC 33.6 % Normal 32.0-36.0 [facility] Comment on above: Performed By: #### M G3, BMP3, HEMOG #### [place] [address] [place] MCV (RBC) [Entitic vol] 92.6 fL Normal 80.0-98.0 [facility] Comment on above: Performed By: #### M G3, BMP3, HEMOG #### [place] [address] [place], [place] Platelet mean volume (Bld) [Entitic vol] 7.3 fL Low 7.4-10.4 [facility] Comment on above: Performed By: #### M G3, BMP3, HEMOG #### [place] [address] [place], [place] Platelets (Bld) [#/Vol] 191 10*3/uL Normal 140-440 [facility] Comment on above: Performed By: #### M G3, BMP3, HEMOG #### [place] [address] [place] RBC (Bld) [#/Vol] 2.86 10*6/uL Low 4.40-5.90 [facility] Comment on above: Performed By: #### M G3, BMP3, HEMOG #### [place] [address] [place] WBC (Bld) [#/Vol] 6.3 10*3/uL Normal 3.6-10.7 [facility] Comment on above: Performed By: #### M G3, BMP3, HEMOG #### [place] [address] [place] Magnesiumon 10-28-2021 Magnesium [Mass/Vol] 2.3 mg/dL Normal 1.6-2.3 [facility] Comment on above: Performed By: #### M G3, BMP3, HEMOG #### [place] [address] [place], [place] Arterial Blood Gaseson 10-27 CO2 [Moles/Vol] 22.9 mmol/L Low 23.0-27.0 [facility] Comment on above: Performed By: #### H EMDF, BMP3 #### [place] [address] [place] HCO3 (Bld) [Moles/Vol] 21.7 mmol/L Normal 21.0-25.0 [facility] Comment on above: Performed By: #### H ANGELA BMP3 #### [address] Hemoglobin (Bld) [Mass/Vol] 10.6 g/dL Normal ScreenOnly [facility] Comment on above: Performed By: #### H ANGELA BMP3 #### [place] [address] [place], [place] Oxygen (Bld) [Partial pressure] 329.7 mm[Hg] High 80.0-100.0 [facility] Comment on above: Performed By: #### H ANGELA BMP3 #### [address] Oxygen saturation in Blood 98.6 % Normal 95.0-100.0 [facility] Comment on above: Performed By: #### H ANGELA BMP3 #### [place] [address] [place] pCO2 39.9 mm[Hg] Normal 35.0-45.0 [facility] Comment on above: Performed By: #### H ANGELA BMP3 #### [address] pH 7.353 Normal 7.350-7.450 [facility] Comment on above: Performed By: #### H ANGELA BMP3 #### [address] [place], [place] Std Base Excess -3.6 mmol/L Low -3.0-3.0 [facility] Comment on above: Performed By: #### H ANGELA BMP3 #### [address] FIO2 No data Normal [facility] Comment on above: Performed By: #### H ANGELA BMP3 #### [place] [address] [place], [place] Basic Metabolic Panelon 03-1 Calcium [Mass/Vol] 9.0 mg/dL Normal 8.4-10.4 [facility] Comment on above: Performed By: #### H ANGELA BMP3 #### [facility] [address] [place], [place] Anion gap [Moles/Vol] 4 mmol/L Normal 3-13 [facility] Comment on above: Performed By: #### H ANGELA BMP3 #### [facility] [address] [place], [place] CO2 [Moles/Vol] 22 mmol/L Normal 22-30 [facility] Comment on above: Performed By: #### H ANGELA BMP3 #### [place] [address] [place], [place] Glucose [Mass/Vol] 114 mg/dL High 70-100 [facility] Comment on above: Performed By: #### Lindsay MILLER BMP3 #### [place] [address] [place], [place] Urea nitrogen [Mass/Vol] 19 mg/dL High 7-17 [facility] Comment on above: Performed By: #### H ANGELA BMP3 #### [place] [address] [place], [place] Creatinine [Mass/Vol] 0.92 mg/dL Normal 0.52-1.25 [facility] Comment on above: Performed By: #### H ANGELA BMP3 #### [facility] [address] [place], [place] GFR/1.73 sq M.predicted among blacks MDRD (S/P/Bld) [Vol rate/Area] mL/min/{1.73_m2} Normal >60 [facility] Comment on above: Performed By: #### H ANGELA BMP3 #### [facility] [address] [place], [place] GFR/1.73 sq M.predicted among non-blacks MDRD (S/P/Bld) [Vol rate/Area] 85.5 mL/min/{1.73_m2} Normal >60 [facility] Comment on above: Result Comment: KDIG O guidelines provide the following GFR categories: Stage GFR(ml/min/1.73 m2) Terms G1 >=90 Normal or high G2 60-89 Mildly decreased* G3a 45-59 Mildly to moderately decreased G3b 30-44 Moderately to severely decreased G4 15-29 Severely decreased G5 <15 Kidney failure *Relative to young adult level. In the absence of evidence of kidney damage, neither GFR category G1 nor G2 fulfill the criteria for CKD. The CKD-EPI equation is validated in individuals 18 years of age and older. Currently the best equation for estimating glomerular filtration rate (GFR) from serum creatinine in children is the Bedside Honeycutt equation. It is less accurate in patients with extremes of muscle mass, restriction of dietary protein, ingestion of creatine, extra-renal metabolism of creatinine, or treatment with medications that affect renal tubular creatinine secretion. Performed By: #### H ANGELA BMP3 #### [address] Chloride [Moles/Vol] 110 mmol/L High 98-107 [facility] Comment on above: Performed By: #### H ANGELA BMP3 #### [address] Potassium [Moles/Vol] 3.5 mmol/L Normal 3.5-5.1 [facility] Comment on above: Performed By: #### H ANGELA BMP3 #### [address] Sodium [Moles/Vol] 137 mmol/L Normal 135-145 [facility] Comment on above: Performed By: #### H ANGELA BMP3 #### [address] Calcium [Mass/Vol] 9.3 mg/dL Normal 8.4-10.4 [facility] Comment on above: Performed By: #### B GLU #### [address] Anion gap [Moles/Vol] 7 mmol/L Normal 3-13 [facility] Comment on above: Performed By: #### B GLU #### [address] CO2 [Moles/Vol] 24 mmol/L Normal 22-30 [facility] Comment on above: Performed By: #### B GLU #### [facility] [address] [place], [place] Creatinine [Mass/Vol] 0.93 mg/dL Normal 0.52-1.25 [facility] Comment on above: Performed By: #### B GLU #### [facility] [address] [place], [place] GFR/1.73 sq M.predicted among blacks MDRD (S/P/Bld) [Vol rate/Area] mL/min/{1.73_m2} Normal >60 [facility] Comment on above: Performed By: #### B GLU #### [place] [address] [place], [place] GFR/1.73 sq M.predicted among non-blacks MDRD (S/P/Bld) [Vol rate/Area] 84.4 mL/min/{1.73_m2} Normal >60 [facility] Comment on above: Result Comment: KDIG O guidelines provide the following GFR categories: Stage GFR(ml/min/1.73 m2) Terms G1 >=90 Normal or high G2 60-89 Mildly decreased* G3a 45-59 Mildly to moderately decreased G3b 30-44 Moderately to severely decreased G4 15-29 Severely decreased G5 <15 Kidney failure *Relative to young adult level. In the absence of evidence of kidney damage, neither GFR category G1 nor G2 fulfill the criteria for CKD. The CKD-EPI equation is validated in individuals 18 years of age and older. Currently the best equation for estimating glomerular filtration rate (GFR) from serum creatinine in children is the Bedside Honeycutt equation. It is less accurate in patients with extremes of muscle mass, restriction of dietary protein, ingestion of creatine, extra-renal metabolism of creatinine, or treatment with medications that affect renal tubular creatinine secretion. Performed By: #### B GLU #### [facility] [address] [place], [place] Glucose [Mass/Vol] 100 mg/dL Normal 70-100 [facility] Comment on above: Performed By: #### B GLU #### [facility] [address] [place] [address] Urea nitrogen [Mass/Vol] 22 mg/dL High 7-17 [facility] Comment on above: Performed By: #### B GLU #### [facility] [address] [place] [address] Chloride [Moles/Vol] 106 mmol/L Normal 98-107 [facility] Comment on above: Performed By: #### B GLU #### [facility] [address] [place] [address] Potassium [Moles/Vol] 4.0 mmol/L Normal 3.5-5.1 [facility] Comment on above: Result Comment: Slig htly hemolysed, interpret with caution. Performed By: #### B GLU #### [facility] [address] [place] [address] Sodium [Moles/Vol] 137 mmol/L Normal 135-145 [facility] Comment on above: Performed By: #### B GLU #### [facility] [address] [place] [address] CR Chest Portableon 10-28-19 22 CR Chest Portable [facility]: [id number]iology ACCESSION EXAM DATE/TIME PROCEDURE ORDERING PROVIDER [id number] 10/27/2021 19:08 EDT CR Chest Portable [id number] -LETICIA MAZARIEGOS CPT code 56584 Reason For Exam (CR Chest Portable) ETT placement Report CLINICAL INDICATION: ETT placement COMPARISON: 10/26/2021 TECHNIQUE: Single portable AP radiograph of the chest. FINDINGS: LUNGS/PLEURA:Mild bibasilar opacities. Trachea remains midline. No pneumothorax. MEDIASTINUM:Heart size and mediastinal contours are normal. VASCULARITY: Normal BONES:Unremarkable SUPPORT LINES: [place]a catheter terminates within the right pulmonary artery. Tip of enteric tube and last sidehole overlies the stomach body. Endotracheal tube terminates 3.8 cm above the elías. OTHER: IMPRESSION: Mild bibasilar opacities. Support lines and tubes as above. Report Dictated on Final Dictated: 10/27/2021 7:23 pm Dictating Physician: MD FLAKITO, ADRIAN STARKS Signed Date and Time: 10/27/2021 7:24 pm Signed by: MD FRAGA YUN ROBERT Transcribed Date and Time: 10/27/2021 7:23 Normal [facility] Calcium,Ionizedon 10-27-2021 Ionized Ca,Measured 4.60 mg/dL Normal 4.30-5.20 [facility] Comment on above: Performed By: #### M G3JARETT3, HEMOG #### [facility] [address] [place] [address] pH, Ionized Calcium 7.41 Normal 7.31-7.46 [facility] Comment on above: Performed By: #### Ajay G3, BMP3, HEMOG #### [facility] [address] [place] [address] Echo 2D/3D TREV w/wo Contrast on 10-27-2021 Echo 2D/3D TREV w/wo Contrast Patient Name: ERIC GONZALEZ Ultrasound ACCESSION EXAM DATE/TIME PROCEDURE ORDERING PROVIDER [id number] 10/27/2021 12:18 EDT Echo 2D/3D TREV w/wo CASIE ARMANDO MATTHEW R. Contrast Reason For Exam (Echo 2D/3D TREV w/wo Contrast) Surgery Report TRANSESOPHAGEAL ECHOCARDIOGRAM Intraoperative-Pre Pump Only PATIENT: Eric Gonzalez STUDY DATE: 10/27/2021 [facility]#: [id number] : 1955 AGE: 66 HT/WT: 182.9 cm (72 105.5 kg (232 in) lb) GENDER: M BP: 120 / 81 LOCATION: [facility] PATIENT Inpatient main STATUS: *ORDERING PHYSICIAN: * Justin Armando *READING PHYSICIAN: * Michael Kuo *HOUSING ASSISTANT: * Elina Castro MD [facility] INDICATIONS: Coronary artery bypass graft. CONCLUSIONS SUMMARY: Pre: CABG Alll findings disscussed with surgical team. STUDY DATA: Operative transesophageal echocardiogram. Procedure: The procedure was performed with the patient intubated under general anesthesia on the operating table. A complete pre-operative TREV was performed. Image quality was good. Purpose: intraopertive evaluation. A transesophageal probe was inserted by the anesthesiologistwithout difficulty. The transesophageal probe was removed. Complete 2D, complete spectral Doppler, and color flow Doppler images were acquired and archived for permanent storage and are available for subsequent review. Study status: Routine. Patient status: Inpatient. Location: Operating room. Study completion: There were no complications. FINDINGS LEFT VENTRICLE: Systolic function is normal by visual assessment. RIGHT VENTRICLE: Systolic function is normal by visual assessment. VENTRICULAR SEPTUM: There is no evidence of a ventricular septal defect. LEFT ATRIUM: The appendage is well visualized. Emptying velocity is Ultrasound Report moderately reduced. ATRIAL SEPTUM: There is increased thickness of the septum, consistent with lipomatous hypertrophy. No evidence of patent foramen ovale or atrial septal defect. MITRAL VALVE: Doppler: There is no significant regurgitation. AORTIC VALVE: Doppler: There is no regurgitation. TRICUSPID VALVE: Doppler: There is no significant regurgitation. PULMONIC VALVE: Doppler: There is no regurgitation. AORTA: There is mild, diffuse atheromatous plaque. PERICARDIUM: There is no pericardial effusion. PULMONARY VEINS: Pulmonary venous flow during systole is blunted. Electronically signed by Michael Kuo MD 10/30/2021 05:18 Prior Signatures: Final Dictated: 10/30/2021 5:18 am Dictating Physician: MD KUO BRIAN Signed Date and Time: 10/30/2021 5:18 am Signed by: MD KUO BRIAN Normal [facility] Glucose,Bedsideon 10-27-2021 Glucose [Mass/Vol] 126 mg/dL High 70-100 [facility] Comment on above: Result Comment: Test performed by glucose meter. Results may be 10%-15% lower than serum/plasma values. (CLIA ID [id number]) Performed By: #### H EMDF, BMP3 #### [facility] [address] [place] [address] Glucose [Mass/Vol] 116 mg/dL High 70-100 [facility] Comment on above: Result Comment: Test performed by glucose meter. Results may be 10%-15% lower than serum/plasma values. (CLIA ID [id number]) Performed By: #### H EMDF, BMP3 #### [facility] [address] [place] [address] Glucose [Mass/Vol] 128 mg/dL High 70-100 [facility] Comment on above: Result Comment: Test performed by glucose meter. Results may be 10%-15% lower than serum/plasma values. (CLIA ID [id number]) Performed By: #### B GLU #### [facility] [address] [place] [address] Glucose [Mass/Vol] 120 mg/dL High 70-100 [facility] Comment on above: Result Comment: Test performed by glucose meter. Results may be 10%-15% lower than serum/plasma values. (CLIA ID [id number]) Performed By: #### H EMDF, BMP3 #### [facility] [address] [place] [address] Glucose [Mass/Vol] 105 mg/dL High 70-100 [facility] Comment on above: Result Comment: Test performed by glucose meter. Results may be 10%-15% lower than serum/plasma values. (CLIA ID [id number]) Performed By: #### M G3 BMP3, HEMOG #### [facility] [address] [place], [place] Glucose [Mass/Vol] 100 mg/dL Normal 70-100 [facility] Comment on above: Result Comment: Test performed by glucose meter. Results may be 10%-15% lower than serum/plasma values. (CLIA ID [id number]) Performed By: #### B GLU #### [place] [address] [place], [place] Hemogramon 10-27-2021 Erythrocyte distribution width (RBC) [Ratio] 12.4 % Normal 11.5-14.5 [facility] Comment on above: Performed By: #### H VONF BMP3 #### [place] [address] [place], [place] Hematocrit (Bld) [Volume fraction] 29.8 % Low 40.0-52.0 [facility] Comment on above: Performed By: #### H VONF BMP3 #### [place] [address] [place], [place] Hemoglobin (Bld) [Mass/Vol] 9.9 g/dL Low 13.0-18.0 [facility] Comment on above: Performed By: #### H VONF BMP3 #### [place] [address] [address] [place], [place] MCH (RBC) [Entitic mass] 30.8 pg Normal 26.0-34.0 [facility] Comment on above: Performed By: #### H EMDF BMP3 #### [address] MCHC 33.1 % Normal 32.0-36.0 [facility] Comment on above: Performed By: #### H EMDF, BMP3 #### [place] [address] [place], [place] MCV (RBC) [Entitic vol] 93.2 fL Normal 80.0-98.0 [facility] Comment on above: Performed By: #### H JARETT MILLER3 #### [place] [address] [address] [place], [place] Platelet mean volume (Bld) [Entitic vol] 7.1 fL Low 7.4-10.4 [facility] Comment on above: Performed By: #### H JARETT MILLER3 #### [place] [address] [address] [place], [place] Platelets (Bld) [#/Vol] 192 10*3/uL Normal 140-440 [facility] Comment on above: Performed By: #### H JARETT MILLER3 #### [place] [address] [address] [place], [place] RBC (Bld) [#/Vol] 3.20 10*6/uL Low 4.40-5.90 [facility] Comment on above: Performed By: #### H JARETT MILLER3 #### [place] [address] [address] [place], [place] WBC (Bld) [#/Vol] 15.0 10*3/uL High 3.6-10.7 [facility] Comment on above: Performed By: #### H JARETT MILLER3 #### [place] [address] [address] [place], [place] Hemogram w/ Autodiffon 10-27 Abs Baso Cnt 0.1 10*3/uL Normal 0.0-0.2 [facility] Comment on above: Performed By: #### B GLU #### [place] [address] [address] [place], [place] Abs Neutrophile Cnt 3.9 10*3/uL Normal 1.8-7.0 [facility] Comment on above: Performed By: #### B GLU #### [place] [address] [address] [place], [place] Basophils/100 WBC (Bld) 0.9 % Normal 0.0-2.0 [facility] Comment on above: Performed By: #### B GLU #### [place] [address] [address] [place], [place] Eosinophils (Bld) [#/Vol] 0.2 10*3/uL Normal 0.0-0.5 [facility] Comment on above: Performed By: #### B GLU #### [address] [place] [address] Eosinophils/100 WBC (Bld) 2.5 % Normal 1.0-6.0 [facility] Comment on above: Performed By: #### B GLU #### [place] [address] [address] [place], [place] Erythrocyte distribution width (RBC) [Ratio] 12.9 % Normal 11.5-14.5 [facility] Comment on above: Performed By: #### B GLU #### [address] [place], [place] Granulocytes/100 WBC (Bld) 55.1 % Normal 40.0-80.0 [facility] Comment on above: Performed By: #### B GLU #### [place] [address] [address] [place], [place] Hematocrit (Bld) [Volume fraction] 37.4 % Low 40.0-52.0 [facility] Comment on above: Performed By: #### B GLU #### [place] [address] [address] [place], [place] Hemoglobin (Bld) [Mass/Vol] 13.0 g/dL Normal 13.0-18.0 [facility] Comment on above: Performed By: #### B GLU #### [place] [address] [place], [place] Lymphocytes (Bld) [#/Vol] 2.2 10*3/uL Normal 1.0-4.3 [facility] Comment on above: Performed By: #### B GLU #### [address] [place], [place] Lymphocytes/100 WBC (Bld) 30.6 % Normal 20.0-40.0 [facility] Comment on above: Performed By: #### B GLU #### [place] [address] [address] [place], [place] MCH (RBC) [Entitic mass] 32.2 pg Normal 26.0-34.0 [facility] Comment on above: Performed By: #### B GLU #### [facility] [address] [place], [place] MCHC 34.7 % Normal 32.0-36.0 [facility] Comment on above: Performed By: #### B GLU #### [facility] [address] [place], [place] MCV (RBC) [Entitic vol] 92.9 fL Normal 80.0-98.0 [facility] Comment on above: Performed By: #### B GLU #### [place] [address] [address] [place], [place] Monocytes (Bld) [#/Vol] 0.8 10*3/uL Normal 0.0-0.8 [facility] Comment on above: Performed By: #### B GLU #### [place] [address] [address] [place], [place] Monocytes/100 WBC (Bld) 10.9 % High 2.0-10.0 [facility] Comment on above: Performed By: #### B GLU #### [place] [address] [address] [place], [place] Platelet mean volume (Bld) [Entitic vol] 7.5 fL Normal 7.4-10.4 [facility] Comment on above: Performed By: #### B GLU #### [facility] [address] [place], [place] Platelets (Bld) [#/Vol] 311 10*3/uL Normal 140-440 [facility] Comment on above: Performed By: #### B GLU #### [place] [address] [address] [place], [place] RBC (Bld) [#/Vol] 4.02 10*6/uL Low 4.40-5.90 [facility] Comment on above: Performed By: #### B GLU #### [place] [address] [address] [place], [place] WBC (Bld) [#/Vol] 7.1 10*3/uL Normal 3.6-10.7 [facility] Comment on above: Performed By: #### B GLU #### [place] [address] [address] [place], [place] Magnesiumon 10-27-2021 Magnesium [Mass/Vol] 3.0 mg/dL High 1.6-2.3 [facility] Comment on above: Performed By: #### H JARETT MILLER3 #### [address] Phosphoruson 10-27-2021 Phosphate [Mass/Vol] 3.8 mg/dL Normal 2.5-4.5 [facility] Comment on above: Performed By: #### H JARETT MILLER3 #### [address] Protime AND APTTon aPTT Coag (Bld) [Time] 24.8 s Normal 20.0-30.5 [facility] Comment on above: Result Comment: NOTE : The therapeutic time for Heparin anticoagulation, based on Xa activity inhibition, is an APTT of 46-80 seconds. Performed By: #### H JARETT MILLER3 #### [address] INR 1.3 High 0.9-1.1 [facility] Comment on above: Result Comment: Abdifatah mmended Anticoagulant Therapy: SEE BELOW ----- INR of 2.0 - 3.0 : - Prophylaxis of Venous Thrombosis (high-risk surgery) - Treatment of Venous Thrombosis - Treatment of Pulmonary Embolism (Includes tissue heart valves, Acute Myocardial Infarction to prevent systemic embolism, Valvular Heart Disease, and Atrial Fibrillation) ----- INR of 2.5 - 3.5 : - Mechanical Prosthetic Valves (high risk) - If oral anticoagulant therapy is used to prevent Myocardial Infarction Performed By: #### H ANGELA BMP3 #### [place] [address] [place], [place] PT Coag (PPP) [Time] 13.5 s High 9.0-12.0 [facility] Comment on above: Result Comment: . Performed By: #### H ANGELA BMP3 #### [facility] [address] [place] [address] Basic Metabolic Panelon 03-08 18-2021 Anion gap [Moles/Vol] 8 mmol/L Normal 3-13 [facility] Comment on above: Performed By: #### H EMDF, BMP3 #### [facility] [address] [place] [address] Calcium [Mass/Vol] 9.5 mg/dL Normal 8.4-10.4 [facility] Comment on above: Performed By: #### H EMDF, BMP3 #### [facility] [address] [place] [address] CO2 [Moles/Vol] 24 mmol/L Normal 22-30 [facility] Comment on above: Performed By: #### H EMDF, BMP3 #### [facility] [address] [place] [address] Glucose [Mass/Vol] 105 mg/dL High 70-100 [facility] Comment on above: Performed By: #### H EMDF, BMP3 #### [facility] [address] [place] [address] Urea nitrogen [Mass/Vol] 17 mg/dL Normal 7-17 [facility] Comment on above: Performed By: #### H EMDF, BMP3 #### [facility] [address] [place] [address] Creatinine [Mass/Vol] 0.92 mg/dL Normal 0.52-1.25 [facility] Comment on above: Performed By: #### H EMDF, BMP3 #### [facility] [address] [place] [address] GFR/1.73 sq M.predicted among blacks MDRD (S/P/Bld) [Vol rate/Area] mL/min/{1.73_m2} Normal >60 [facility] Comment on above: Performed By: #### H EMDF, BMP3 #### [facility] [address] [place] [address] GFR/1.73 sq M.predicted among non-blacks MDRD (S/P/Bld) [Vol rate/Area] 85.5 mL/min/{1.73_m2} Normal >60 [facility] Comment on above: Result Comment: KDIG O guidelines provide the following GFR categories: Stage GFR(ml/min/1.73 m2) Terms G1 >=90 Normal or high G2 60-89 Mildly decreased* G3a 45-59 Mildly to moderately decreased G3b 30-44 Moderately to severely decreased G4 15-29 Severely decreased G5 <15 Kidney failure *Relative to young adult level. In the absence of evidence of kidney damage, neither GFR category G1 nor G2 fulfill the criteria for CKD. The CKD-EPI equation is validated in individuals 18 years of age and older. Currently the best equation for estimating glomerular filtration rate (GFR) from serum creatinine in children is the Bedside Honeycutt equation. It is less accurate in patients with extremes of muscle mass, restriction of dietary protein, ingestion of creatine, extra-renal metabolism of creatinine, or treatment with medications that affect renal tubular creatinine secretion. Performed By: #### H JARETT MILLER3 #### [address] Chloride [Moles/Vol] 104 mmol/L Normal 98-107 [facility] Comment on above: Performed By: #### H JARETT MILLER3 #### [address] Potassium [Moles/Vol] 3.7 mmol/L Normal 3.5-5.1 [facility] Comment on above: Performed By: #### H JARETT MILLER3 #### [address] Sodium [Moles/Vol] 137 mmol/L Normal 135-145 [facility] Comment on above: Performed By: #### H JARETT MILLER3 #### [address] CR Chest Portableon 10-27-19 22 CR Chest Portable Patient Name: ERIC GARNICA Diagnostic Radiology ACCESSION EXAM DATE/TIME PROCEDURE ORDERING PROVIDER [id number] 10/26/2021 10:14 EDT CR Chest Portable RADHACASIE MATTHEW R. CPT code 18360 Reason For Exam (CR Chest Portable) cad Report INDICATION:Coronary artery disease. PORTABLE CHEST: COMPARISON: None. No focal areas of consolidation or pleural effusions. No edema. No pneumothorax. Heart size is within normal limits. Mild ectasia of the thoracic aorta. IMPRESSION: No acute intrathoracic process. Report Dictated on Final Dictated: 10/26/2021 11:06 am Dictating Physician: MD LU LAURA Signed Date and Time: 10/26/2021 11:07 am Signed by: MD LU LAURA Transcribed Date and Time: 10/26/2021 11:06 Normal [facility] CT Chest w/o Contraston 10-14 CT Chest w/o Contrast [id number] Tom[facility] ACCESSION EXAM DATE/TIME PROCEDURE ORDERING PROVIDER [id number] 10/26/2021 09:[address] Thorax w/o Contrast RADHA LUIS JASON CPT code 98816 Reason For Exam (CT Thorax w/o Contrast) CAD Report CT SCAN OF THE CHEST WITHOUT CONTRAST: INDICATION: Coronary artery disease. COMPARISON: No previous studies are available for comparison. CT scans of the chest were performed without intravenous contrast administration, with images from the thoracic inlet to the upper abdomen. The images are reviewed in the axial, sagittal and coronal planes. The right and left lungs are clear, with no infiltrates or nodular densities. There are no effusions. The heart is normal in size without pericardial effusion or pericardial thickening. Dense coronary artery calcifications are present. There are no congestive changes in the pulmonary vasculature. Evaluation of the mediastinum demonstrates no mass nor adenopathy. The visualized portions of the liver, spleen, kidneys, and adrenals are unremarkable. Degenerative changes are seen in the spine. IMPRESSION: No acute cardiopulmonary process. Dense coronary artery calcifications are present. Report Dictated on Final Dictated: 10/26/2021 11:08 am Dictating Physician: DO SPICER ALFRED Signed Date and Time: 10/26/2021 11:23 am Signed by: DO SPICER ALFRED Transcribed Date and Time: 10/26/2021 11:08 Normal [facility] Hemogram w/ Autodiffon 10-26 Abs Baso Cnt 0.1 10*3/uL Normal 0.0-0.2 [facility] Comment on above: Performed By: #### H EMDF, BMP3 #### [facility] [address] [place], [place] Abs Neutrophile Cnt 3.3 10*3/uL Normal 1.8-7.0 [facility] Comment on above: Performed By: #### H EMDF, BMP3 #### [address] [address] [address] [place], [place] Basophils/100 WBC (Bld) 0.9 % Normal 0.0-2.0 [facility] Comment on above: Performed By: #### H EMDF, BMP3 #### [address] [place] [address] [address] [place], [place] Eosinophils (Bld) [#/Vol] 0.2 10*3/uL Normal 0.0-0.5 [facility] Comment on above: Performed By: #### H EMDF, BMP3 #### [place] [address] [address] [place], [place] Eosinophils/100 WBC (Bld) 2.8 % Normal 1.0-6.0 [facility] Comment on above: Performed By: #### H EMDF, BMP3 #### [place] [address] [address] [place], [place] Erythrocyte distribution width (RBC) [Ratio] 12.8 % Normal 11.5-14.5 [facility] Comment on above: Performed By: #### H EMDF, BMP3 #### [place] [address] [address] [place], [place] Granulocytes/100 WBC (Bld) 50.9 % Normal 40.0-80.0 [facility] Comment on above: Performed By: #### H EMDF, BMP3 #### [place] [address] [address] [place], [place] Hematocrit (Bld) [Volume fraction] 38.5 % Low 40.0-52.0 [facility] Comment on above: Performed By: #### H ANGELA BMP3 #### [address] Hemoglobin (Bld) [Mass/Vol] 13.2 g/dL Normal 13.0-18.0 [facility] Comment on above: Performed By: #### H ANGELA BMP3 #### [address] Lymphocytes (Bld) [#/Vol] 2.1 10*3/uL Normal 1.0-4.3 [facility] Comment on above: Performed By: #### H ANGELA BMP3 #### [address] Lymphocytes/100 WBC (Bld) 32.5 % Normal 20.0-40.0 [facility] Comment on above: Performed By: #### H ANGELA BMP3 #### [address] MCH (RBC) [Entitic mass] 31.7 pg Normal 26.0-34.0 [facility] Comment on above: Performed By: #### H ANGEAL BMP3 #### [address] MCHC 34.4 % Normal 32.0-36.0 [facility] Comment on above: Performed By: #### H ANGELA BMP3 #### [address] MCV (RBC) [Entitic vol] 92.3 fL Normal 80.0-98.0 [facility] Comment on above: Performed By: #### H ANGELA BMP3 #### [address] Monocytes (Bld) [#/Vol] 0.8 10*3/uL Normal 0.0-0.8 [facility] Comment on above: Performed By: #### H ANGELA BMP3 #### [address] Monocytes/100 WBC (Bld) 12.9 % High 2.0-10.0 [facility] Comment on above: Performed By: #### H ANGELA BMP3 #### [address] [place] [address] [address] [place], [place] Platelet mean volume (Bld) [Entitic vol] 7.0 fL Low 7.4-10.4 [facility] Comment on above: Performed By: #### H ANGELA BMP3 #### [address] [place] [address] [address] [place], [place] Platelets (Bld) [#/Vol] 303 10*3/uL Normal 140-440 [facility] Comment on above: Performed By: #### H ANGELA BMP3 #### [address] RBC (Bld) [#/Vol] 4.18 10*6/uL Low 4.40-5.90 [facility] Comment on above: Performed By: #### H ANGELA BMP3 #### [address] [place] [address] [address] [place], [place] WBC (Bld) [#/Vol] 6.4 10*3/uL Normal 3.6-10.7 [facility] Comment on above: Performed By: #### H ANGELA BMP3 #### [address] Magnesiumon 10-26-2021 Magnesium [Mass/Vol] 1.8 mg/dL Normal 1.6-2.3 [facility] Comment on above: Performed By: #### M G3 BMP3, HEMOG #### [address] [place] [address] [place], [place] Prothrombin Timeon INR 1.0 Normal 0.9-1.1 [facility] Comment on above: Result Comment: Abdifatah mmended Anticoagulant Therapy: SEE BELOW ----- INR of 2.0 - 3.0 : - Prophylaxis of Venous Thrombosis (high-risk surgery) - Treatment of Venous Thrombosis - Treatment of Pulmonary Embolism (Includes tissue heart valves, Acute Myocardial Infarction to prevent systemic embolism, Valvular Heart Disease, and Atrial Fibrillation) ----- INR of 2.5 - 3.5 : - Mechanical Prosthetic Valves (high risk) - If oral anticoagulant therapy is used to prevent Myocardial Infarction Performed By: #### M G3, BMP3, HEMOG #### [facility] [address] [place] [address] PT Coag (PPP) [Time] 10.9 s Normal 9.0-12.0 [facility] Comment on above: Result Comment: . Performed By: #### M G3, BMP3, HEMOG #### [facility] [address] [place] [address] TS GELon 10-26-2021 TS GEL ABO Group: O Rh, Gel: POS Antibody Screen Gel: NEG Normal [facility] Comment on above: Performed By: #### M G3, BMP3, HEMOG #### [facility] [address] [place] [address] VL Carotid Duplex Ultrasound Completeon 10-26-2021 Carotid Duplex Ultrasound Complete Patient Name: ERIC GONZALEZ Ultrasound ACCESSION EXAM DATE/TIME PROCEDURE ORDERING PROVIDER [id number] 10/26/2021 12:28 EDT VL Carotid Duplex CASIE ARMANDO MATTHEW R. Ultrasound Complete CPT code 81807 Reason For Exam (VL Carotid Duplex Ultrasound Complete) PREOP EVALUATION Report [facility] Carotid Duplex Report Patient Carlos : 1955 Study 10/26/2021 Name: Eric (66yrs) Date: Patient [id number] Age: 66 Account: [id number] ID: Gender: M Loc: BP: Ordering Physician: Justin Armando Manager Pacu: ANALI MurdockT Interpreting Physician: Tarun Zimmerman MD Location: [facility] Indications: Pre-op evaluation. Conclusions 1. Mild carotid disease present with less than 50% stenosis involving the right internal carotid artery. 2. Mild carotid disease present with less than 50% stenosis involving the left internal carotid artery. 3. Normal antegrade flow involving the right vertebral artery. 4. Normal antegrade flow involving the left vertebral artery. History: Risk factors: Former tobacco use. Hypertension. Age over 65 years. Study data: Complete carotid duplex study. Grayscale 2D imaging, color Doppler imaging, and spectral Doppler analysis. Location: Vascular laboratory. Procedure: A vascular evaluation was performed with the patient in the supine position. Images were obtained using a Ultrasound Report [employer] [id number] vascular ultrasound machine. Findings Carotid/vertebral arteries: Right common carotid: The vessel has , mixed , and heterogeneous plaque. Right internal carotid: The proximal vessel has , mixed, and heterogeneous plaque. Right external carotid: The proximal vessel has , mixed, and heterogeneous plaque. Right vertebral: The arterial flow direction is antegrade. Left vertebral: The arterial flow direction is antegrade. Left common carotid: The vessel has , mixed , and heterogeneous plaque. Left internal carotid: The vessel is tortuous. The proximal vessel has , mixed, and heterogeneous plaque. Left external carotid: The proximal vessel has , mixed, and heterogeneous plaque. Arterial flow: + +--------- --+ + --------+ +Location +PSV(cm/sec)+EDV(cm/sec)+ Comment + + +--------- --+ + --------+ +R CCA , prox +116 +25 + + + +--------- --+ + --------+ +R CCA , mid +111 +33 + + + +--------- --+ + --------+ +R CCA , distal+87 +23 + + + +--------- --+ + --------+ +R ICA , prox +103 +29 + + + +--------- --+ + --------+ +R ICA , mid +53 +19 + + + +--------- --+ + --------+ +R ICA , distal+74 +23 + + + +--------- --+ + --------+ +R ECA +94 +18 + + + +--------- --+ + --------+ +R vertebral +32 +11 +Abnormal waveform.+ + +--------- --+ + --------+ +L CCA , prox +98 +23 + + + +--------- --+ + --------+ +L CCA , mid +100 +22 + + + +--------- --+ + --------+ +L CCA , distal+89 +22 + + + +--------- --+ + --------+ +L ICA , prox +77 +18 + + + +--------- --+ + --------+ +L ICA , mid +57 +14 + + + +--------- --+ + --------+ +L ICA , distal+60 +17 + + + +--------- --+ + --------+ +L ECA +74 +14 + + + +--------- --+ + --------+ +L vertebral +49 +12 + + + +--------- --+ + --------+ Velocity ratios: + + -----+-----+ + +R PSV+L PSV+ Ultrasound Report + + -----+-----+ +Max ICA / Mid CCA Ratio+0.93 +0.77 + + + -----+-----+ Prepared and electronically signed by Tarun Zimmerman MD 0 (more content not included)... [facility] VL Vein Map for Preop Bypass [place] 10-26-2021 VL Vein Map for Preop Bypass Lower Ext Patient Name: ERIC GONZALEZ [facility]#: [id number] Ultrasound ACCESSION EXAM DATE/TIME PROCEDURE ORDERING PROVIDER [id number] 10/26/2021 12:29 EDT VL Vein Map for Preop CASIE ARMANDO MATTHEW R. Bypass Lower Ext CPT code 15296 Reason For Exam (VL Vein Map for Preop Bypass Lower Ext) PREOP CABG Report [facility] Bilateral LE Vein Mapping For Bypass Report Patient DO CralosB: 1955 Study 10/26/2021 Name: Eric (66yrs) Date: Patient [id number] Age: 66 Account: [id number] ID: Gender: M Loc: BP: Ordering Physician: Justin Armando Manager Pacu: Radha Prabhakar RVT Interpreting Physician: Tarun Zimmerman MD Location: [facility] Indications: Preop CABG. Conclusions 1. The right greater saphenous vein demonstrates a diameter not suitable for vascular reconstruction. . 2. The left greater saphenous vein demonstrates a diameter not suitable for vascular reconstruction. . 3. Vein sizes as noted below. History: Risk factors: Former tobacco use. Hypertension. Age over 65 years. Study data: Bilateral lower extremity vein mapping. Grayscale 2D imaging. Location: Vascular laboratory. Procedure: A vascular evaluation was performed with the patient in the supine position. Images were obtained using a [employer] vascular ultrasound machine. Ultrasound Report Vein mapping: + +--------- ---+ +Location +Diameter AP*+ + +--------- ---+ +R saph-femoral junction - prox. (thigh)+5.46 mm + + +--------- ---+ +R GSV - prox. (thigh) +2.56 mm + + +--------- ---+ +R GSV - mid (thigh) +1.70 mm + + +--------- ---+ +R GSV - distal (thigh) +1.22 mm + + +--------- ---+ +R GSV - distal (knee) +1.10 mm + + +--------- ---+ +R GSV - prox. (calf) +1.39 mm + + +--------- ---+ +R GSV - mid (calf) +1.39 mm + + +--------- ---+ +R GSV - distal (calf) +1.23 mm + + +--------- ---+ +L saph-femoral junction - prox. (thigh)+5.31 mm + + +--------- ---+ +L GSV - prox. (thigh) +1.66 mm + + +--------- ---+ +L GSV - mid (thigh) +1.39 mm + + +--------- ---+ +L GSV - distal (thigh) +1.23 mm + + +--------- ---+ +L GSV - distal (knee) +1.39 mm + + +--------- ---+ +L GSV - prox. (calf) +1.86 mm + + +--------- ---+ +L GSV - mid (calf) +1.01 mm + + +--------- ---+ +L GSV - distal (calf) +1.46 mm + + +--------- ---+ *Length measurements, e.g. diameters, are expressed in mm Prepared and electronically signed by Tarun Zimmerman MD 10/27/2021 09:20 Final Dictated: 10/27/2021 9:20 am Dictating Physician: TARUN ZIMMERMAN Signed Date and Time: 10/27/2021 9:20 am Signed by: TARUN ZIMMERMAN Cardiovascular ACCESSION EXAM DATE/TIME PROCEDURE [id number] 10/26/2021 12:29 EDT VL Vein Map for Preop Bypass Lower Ext CPT code 00200 Cardiovascular Reason For Exam (VL Vein Map for Preop Bypass Lower Ext) PREOP CABG Report [facility] Bilateral LE Vein Mapping For Bypass Report Patient DO CarlosB: 1955 Study 10/26/2021 Name: Eric (66yrs) Date: Patient [id number] Age: 66 Account: [id number] ID: Gender: M Loc: BP: Ordering Physician: Justin Armando Manager Pacu: Radha Prabhakar RVT Interpreting Physician: Tarun Zimmerman MD Location: [facility] Indications: Preop CABG. Conclusions 1. The right greater saphenous vein demonstrates a diameter not suitable for vascular r (more content not included)... Normal [facility] Basic Metabolic Panelon 10-14 Calcium [Mass/Vol] 9.8 mg/dL Normal 8.4-10.4 [facility] Comment on above: Performed By: #### Ajay Cao BMP3, HEMOG #### [facility] [address] [place], [place] Glucose [Mass/Vol] 97 mg/dL Normal 70-100 [facility] Comment on above: Performed By: #### Ajay Cao BMP3, HEMOG #### [facility] [address] [place], [place] Urea nitrogen [Mass/Vol] 17 mg/dL Normal 7-17 [facility] Comment on above: Performed By: #### Ajay G3, BMP3, HEMOG #### [facility] [address] [place], [place] Anion gap [Moles/Vol] 7 mmol/L Normal 3-13 [facility] Comment on above: Performed By: #### Ajay G3, BMP3, HEMOG #### [facility] [address] [place], [place] CO2 [Moles/Vol] 25 mmol/L Normal 22-30 [facility] Comment on above: Performed By: #### Ajay G3, BMP3, HEMOG #### [facility] [address] [place], [place] Creatinine [Mass/Vol] 0.93 mg/dL Normal 0.52-1.25 [facility] Comment on above: Performed By: #### Ajay G3, BMP3, HEMOG #### [facility] [address] [place] [address] GFR/1.73 sq M.predicted among blacks MDRD (S/P/Bld) [Vol rate/Area] mL/min/{1.73_m2} Normal >60 [facility] Comment on above: Performed By: #### SAMY Dhillon HEMOG #### [facility] [address] [place] [address] GFR/1.73 sq M.predicted among non-blacks MDRD (S/P/Bld) [Vol rate/Area] 84.4 mL/min/{1.73_m2} Normal >60 [facility] Comment on above: Result Comment: WILLIAM ECTED RESULT...Previous above value was 86.2, verified on 10/25/21 at 02:17 by IM . KDIGO guidelines provide the following GFR categories: Stage GFR(ml/min/1.73 m2) Terms G1 >=90 Normal or high G2 60-89 Mildly decreased* G3a 45-59 Mildly to moderately decreased G3b 30-44 Moderately to severely decreased G4 15-29 Severely decreased G5 <15 Kidney failure *Relative to young adult level. In the absence of evidence of kidney damage, neither GFR category G1 nor G2 fulfill the criteria for CKD. The CKD-EPI equation is validated in individuals 18 years of age and older. Currently the best equation for estimating glomerular filtration rate (GFR) from serum creatinine in children is the Bedside Honeycutt equation. It is less accurate in patients with extremes of muscle mass, restriction of dietary protein, ingestion of creatine, extra-renal metabolism of creatinine, or treatment with medications that affect renal tubular creatinine secretion. Performed By: #### SAMY Dhillon, HEMOG #### [facility] [address] [place], [place] Potassium [Moles/Vol] 3.7 mmol/L Normal 3.5-5.1 [facility] Comment on above: Performed By: #### SAMY Dhillon HEMOG #### [facility] [address] [place], [place] Chloride [Moles/Vol] 103 mmol/L Normal 98-107 [facility] Comment on above: Performed By: #### SAMY Dhillon HEMOG #### [facility] [address] [place], [place] Sodium [Moles/Vol] 135 mmol/L Normal 135-145 [facility] Comment on above: Performed By: #### SAMY Dhillon, HEMOG #### [place] [address] [place], [place] Hemoglobin A1Con 10-25-2021 Glucose [Mass/Vol] 111 mg/dL Normal [facility] Comment on above: Performed By: #### SAMY Dhillon, HEMOG #### [place] [address] [place], [place] HbA1c (Bld) [Mass fraction] 5.5 % Normal [facility] Comment on above: Result Comment: Norm al less than 5.7% Prediabetes 5.7% to 6.4% Diabetes 6.5% or higher --HgbA1C levels may not be accurate in patients who have renal disease, received recent blood transfusions, are anemic, or who have dyshemoglobinemia. Performed By: #### SAMY Dhillon, HEMOG #### [place] [address] [place], [place] Hemogram w/ Autodiffon 10-25 Abs Baso Cnt 0.0 10*3/uL Normal 0.0-0.2 [facility] Comment on above: Performed By: #### H EMDF #### [place] [address] [place], [place] Abs Neutrophile Cnt 3.3 10*3/uL Normal 1.8-7.0 [facility] Comment on above: Performed By: #### H EMDF #### [place] [address] [place], [place] Basophils/100 WBC (Bld) 0.9 % Normal 0.0-2.0 [facility] Comment on above: Performed By: #### H EMDF #### [address] [place] Eosinophils (Bld) [#/Vol] 0.1 10*3/uL Normal 0.0-0.5 [facility] Comment on above: Performed By: #### H EMDF #### [facility] [address] [place] [address] Eosinophils/100 WBC (Bld) 1.9 % Normal 1.0-6.0 [facility] Comment on above: Performed By: #### H EMDF #### [facility] [address] [place] [address] Erythrocyte distribution width (RBC) [Ratio] 13.0 % Normal 11.5-14.5 [facility] Comment on above: Performed By: #### H EMDF #### [facility] [address] [place] [address] Granulocytes/100 WBC (Bld) 59.0 % Normal 40.0-80.0 [facility] Comment on above: Performed By: #### H EMDF #### [place] [address] [place] [address] Hematocrit (Bld) [Volume fraction] 39.4 % Low 40.0-52.0 [facility] Comment on above: Performed By: #### H EMDF #### [place] [address] [place] [address] Hemoglobin (Bld) [Mass/Vol] 13.4 g/dL Normal 13.0-18.0 [facility] Comment on above: Performed By: #### H EMDF #### [place] [address] [place] [address] Lymphocytes (Bld) [#/Vol] 1.6 10*3/uL Normal 1.0-4.3 [facility] Comment on above: Performed By: #### H EMDF #### [facility] [address] [place] [address] Lymphocytes/100 WBC (Bld) 27.8 % Normal 20.0-40.0 [facility] Comment on above: Performed By: #### H EMDF #### [facility] [address] [place] [address] MCH (RBC) [Entitic mass] 31.6 pg Normal 26.0-34.0 [facility] Comment on above: Performed By: #### H EMDF #### [place] [address] [place], [place] MCHC 34.1 % Normal 32.0-36.0 [facility] Comment on above: Performed By: #### H EMDF #### [place] [address] [place], [place] MCV (RBC) [Entitic vol] 92.9 fL Normal 80.0-98.0 [facility] Comment on above: Performed By: #### H EMDF #### [place] [address] [place], [place] Monocytes (Bld) [#/Vol] 0.6 10*3/uL Normal 0.0-0.8 [facility] Comment on above: Performed By: #### H EMDF #### [address] Monocytes/100 WBC (Bld) 10.4 % High 2.0-10.0 [facility] Comment on above: Performed By: #### H EMDF #### [place] [address] [address] [place], [place] Platelet mean volume (Bld) [Entitic vol] 7.1 fL Low 7.4-10.4 [facility] Comment on above: Performed By: #### H EMDF #### [address] Platelets (Bld) [#/Vol] 287 10*3/uL Normal 140-440 [facility] Comment on above: Performed By: #### H EMDF #### [place] [address] [address] [place], [place] RBC (Bld) [#/Vol] 4.25 10*6/uL Low 4.40-5.90 [facility] Comment on above: Performed By: #### H EMDF #### [place] [address] [place], [place] WBC (Bld) [#/Vol] 5.6 10*3/uL Normal 3.6-10.7 [facility] Comment on above: Performed By: #### H EMDF #### [place] [address] [place], [place] Lipid Panelon 10-25-2021 Chol/HDL 4 Normal [facility] Comment on above: Result Comment: Ref Range: < 3 Low Risk for CHD 3-6 Mod Risk for CHD > 6 High Risk for CHD Performed By: #### M G3, BMP3, HEMOG #### [facility] [address], [place] Cholesterol in HDL [Mass/Vol] 46 mg/dL Normal 40-60 [facility] Comment on above: Performed By: #### M G3, BMP3, HEMOG #### [place] [address] [address] [place], [place] Low Density Lipoprotein 108 mg/dL Abnormal <100 [facility] Comment on above: Performed By: #### Ajay G3, BMP3, HEMOG #### [place] [address] [address] [place], [place] Triglyceride [Mass/Vol] 91 mg/dL Normal <150 [facility] Comment on above: Performed By: #### Ajay Cao, BMP3, HEMOG #### [place] [address] [address] [place], [place] Cholesterol [Mass/Vol] 172 mg/dL Normal < 200 [facility] Comment on above: Performed By: #### Ajay G3, BMP3, HEMOG #### [place] [address] [address] [place], [place] Thyroid Stim. Hormoneon 10-14 Thyroid Stim. Hormone 1.376 u[IU]/mL Normal 0.465-4.68 0 [facility] Comment on above: Performed By: #### M G3, BMP3, HEMOG #### [facility] [address] [place], [place] Troponin Ion 10-25-2021 Troponin I.cardiac [Mass/Vol] 0.059 ng/mL High 0.000-0.034 [facility] Comment on above: Result Comment: . Performed By: #### Ajay G3, BMP3, HEMOG #### [place] [address] [address] [place], [place] Absolute lymphocyte counton 10-24-2021 Lymphocytes Auto (Unsp spec) [#/Vol] 1.98 10*3/uL 0.83-4.51 [facility] Work Phone: Basophil percentageon 2021 Basophils/100 WBC (Bld) 0.9 % 0-1 [facility] Work Phone: Chloride [Moles/Vol] 104 mmol/L 98-107 [facility] Work Phone: Eosinophils/100 WBC (Bld) 3.5 % 0-5 [facility] Work Phone: Glucose [Mass/Vol] 102 mg/dL 74-106 [facility] Work Phone: Comment on above: Fasting Glucose resu lt from 100 to 125 mg/dL suggests IMPAIRED HOMEOSTASIS per A.D.A. criteria. Neutrophils (Bld) [#/Vol] 2.7 10*3/uL 2.0-7.7 [facility] Work Phone: Neutrophils/100 WBC (Bld) 47.8 % 47-70 [facility] Work Phone: Potassium [Moles/Vol] 4.0 mmol/L 3.5-5.1 [facility] Work Phone: Sodium [Moles/Vol] 137 mmol/L 136-145 [facility] Work Phone: WBC (Bld) [#/Vol] 5.7 10*3/uL 4.4-11.0 [facility] Work Phone: Blood erythrocytes count (nu mber/volume)on 10-24-2021 RBC (Bld) [#/Vol] 4.11 10*6/uL 4.6-6.2 [facility] Work Phone: Blood hemoglobin measurement (mass/volume)on 10-24-2021 Hemoglobin (Bld) [Mass/Vol] 12.8 g/dL 13.0-16.5 [facility] Work Phone: Blood lymphocytes/100 leukoc yteson 10-24-2021 Lymphocytes/100 WBC (Bld) 34.7 % 19-41 [facility] Work Phone: Blood monocytes/100 leukocyt eson 10-24-2021 Monocytes/100 WBC (Bld) 12.4 % 0-10 [facility] Work Phone: Blood platelet mean volumeon 10-24-2021 Platelet mean volume (Bld) [Entitic vol] 9.1 fL 6.2-12.0 [facility] Work Phone: Determination of erythrocyte mean corpuscular volume (MCV)on 10-24-2021 MCV (RBC) [Entitic vol] 92.7 fL 80-94 [facility] Work Phone: Hematocrit Auto (Bld) [Volum e fraction]on 10-24-2021 Hematocrit (Bld) [Volume fraction] 38.1 % 40-54 [facility] Work Phone: Laboratory - Chemistry and C hemistry - challengeon 10-24-2021 CO2 [Moles/Vol] 28.0 mmol/L 21.0-32.0 [facility] Work Phone: Urea nitrogen/Creatinine [Mass ratio] 19.8 mg/mg 10-20 [facility] Work Phone: Laboratory - Hematology and Cell countson 10-24-2021 Erythrocyte distribution width (RBC) [Entitic vol] 41.4 fL 35.1-43.9 [facility] Work Phone: [phone] Erythrocyte distribution width (RBC) [Ratio] 12.1 % 11.6-14.6 [facility] Work Phone: [phone] Immature granulocytes/100 WBC (Bld) 0.700 % 0.0-0.9 [facility] Work Phone: Comment on above: IG% - Immature Granu locytes (promyelocytes, myelocytes and metamyelocytes) > 1% indicates that a LEFT SHIFT is Present. MCH (RBC) [Entitic mass] 31.1 pg 27.0-32.0 [facility] Work Phone: Nucleated RBC/100 WBC (Bld) [Ratio] 0 % 0-5 [facility] Work Phone: MCHC Auto (RBC) [Mass/Vol]on 10-24-2021 MCHC (RBC) [Mass/Vol] 33.6 g/dL 32-36 [facility] Work Phone: Comment on above: Delta: 35.6 on 10/23 No Panel Informationon 10-24 Estimated Creatinine Clearance Calc 74.22 ml/min [facility] Work Phone: Estimated GFR (MDRD) Amer 90 mL/min >60 [facility] Work Phone: Comment on above: GFR Calc Estimated GFR (MDRD) Non-Af Amer 74 mL/min >60 [facility] Work Phone: Comment on above: Non- GFR Calc Platelets bldon 10-24-2021 Platelets (Bld) [#/Vol] 296 10*3/uL 150-450 [facility] Work Phone: Serum or plasma calcium irasema urement (mass/volume)on 10-24-2021 Calcium [Mass/Vol] 9.0 mg/dL 8.5-10.1 [facility] Work Phone: Serum or plasma creatinine m easurement (mass/volume)on 10-24-2021 Creatinine [Mass/Vol] 1.06 mg/dL 0.70-1.30 [facility] Work Phone: Comment on above: The validity of the calculated GFR & GFRAA in patients over 70 years has not been determined. Clinical correlation is essential. Serum or plasma urea nitroge n measurement (mass/volume)on 10-24-2021 Urea nitrogen [Mass/Vol] 21 mg/dL 7-18 [facility] Work Phone: Thin prep Papanicolaou smear with manual screeningon 10-24-2021 Thin prep Papanicolaou smear with manual screening 5 5-15 [facility] Work Phone: [phone] Laboratory - Chemistry and C hemistry - challengeon 10-23-2021 Magnesium [Mass/Vol] 2.1 mg/dL 1.6-2.6 [facility]: No Panel Informationon 10-23 Troponin I High Sensitivity 65 pg/mL 3.0-78.0 [facility] Work Phone: Comment on above: Please Note: [place] t Units and Gender Specific Reference Ranges. For more information see Policy Stat Procedure [place] High Sensitivity Troponin (TNIH) and attachments. Vital Signs Date Time Vital Sign Value Performing Clinician Facility 05-23-2025 08:56-0400 Body height 185 cm Nicanor Maldonado MD Work Phone: [facility] 05-23-2025 08:56-0400 Body height 185.42 cm Nicanor Maldonado MD Work Phone: [facility] 05-23-2025 08:56-0400 Body mass index (BMI) [Ratio] 29.4 kg/m2 Nicanor Maldonado MD Work Phone: [facility] 05-23-2025 08:56-0400 Body weight 101 kg Nicanor Maldonado MD Work Phone: [facility] 05-23-2025 08:56-0400 Body weight 100.7 kg Nicanor Maldonado MD Work Phone: [facility] 05-23-2025 08:56-0400 Diastolic blood pressure 79 mm[Hg] Nicanor Maldonado MD Work Phone: [facility] 05-23-2025 08:56-0400 Diastolic blood pressure 89 mm[Hg] Nicanor Maldonado MD Work Phone: [facility] 05-23-2025 08:56-0400 Heart rate 52 /min Nicanor Maldonado MD Work Phone: [facility] 05-23-2025 08:56-0400 HGHTCHNVIS Nicanor Maldonado MD Work Phone: [facility] 05-23-2025 08:56-0400 Systolic blood pressure 146 mm[Hg] Nicanor Maldonado MD Work Phone: [facility] 05-23-2025 08:56-0400 VITALSDONE Nicanor Maldonado MD Work Phone: [facility] 02-09-2023 10:05-0400 Body temperature 97.6 [degF] Dr. Laura Ordaz Work Phone: [facility] 02-09-2023 10:05-0400 Diastolic blood pressure 59 mm[Hg] Dr. Laura Ordaz Work Phone: [facility] 02-09-2023 10:05-0400 Heart rate 55 /min Dr. Laura Ordaz Work Phone: [facility] 02-09-2023 10:05-0400 Respiratory rate 16 /min Dr. Laura Ordaz Work Phone: [facility] 02-09-2023 10:05-0400 SaO2% (BldA) [Mass fraction] 100 % Dr. Laura Ordaz Work Phone: [facility] 02-09-2023 10:05-0400 Systolic blood pressure 90 mm[Hg] Dr. Laura Ordaz Work Phone: [facility] 02-09-2023 08:36-0400 Body height 182.[address] Laura Ordaz Work Phone: [facility] 02-09-2023 08:36-0400 Body mass index (BMI) [Ratio] 29.2 kg/m2 Dr. Laura Ordaz Work Phone: [facility] 02-09-2023 08:36-0400 Body weight 97.[address] Laura Ordaz Work Phone: [facility] 12-28-2022 09:31-0400 Body mass index (BMI) [Ratio] 30.7 kg/m2 Dr. Laura Ordaz Work Phone: [facility] 12-28-2022 09:31-0400 Body temperature 97.2 [degF] Dr. Laura Ordaz Work Phone: [facility] 12-28-2022 09:31-0400 Body weight 102.[address] Laura Ordaz Work Phone: [facility] 12-28-2022 09:31-0400 Diastolic blood pressure 82 mm[Hg] Dr. Laura Ordaz Work Phone: [facility] 12-28-2022 09:31-0400 Heart rate 56 /min Dr. Laura Ordaz Work Phone: [facility] 12-28-2022 09:31-0400 Respiratory rate 7 /min Dr. Laura Ordaz Work Phone: [facility] 12-28-2022 09:31-0400 SaO2% (BldA) [Mass fraction] 96 % Dr. Laura Ordaz Work Phone: [facility] 12-28-2022 09:31-0400 Systolic blood pressure 138 mm[Hg] Dr. Laura Ordaz Work Phone: [facility] 02-25-2022 09:01-0400 Body height 182.[address] Laura Ordaz Work Phone: [facility] Work Phone: 02-25-2022 09:01-0400 Body weight 98.[address] Laura Ordaz Work Phone: [facility] Work Phone: 01-27-2022 09:37-0400 Body height 182.[address] Laura Ordaz Work Phone: [facility] Work Phone: 01-27-2022 09:37-0400 Body weight 100.[address] Laura Ordaz Work Phone: [facility] Work Phone: 12-31-2021 14:31-0400 Body weight 99.[address] Laura Ordaz Work Phone: [facility] Work Phone: 12-31-2021 14:31-0400 Body height 182.[address] Laura Ordaz Work Phone: [facility] Work Phone: 12-31-2021 14:31-0400 Body weight 99.[address] Laura Ordaz Work Phone: [facility] Work Phone: 12-01-2021 11:07-0400 Body weight 99.[address] Laura Ordaz Work Phone: [facility] Work Phone: 12-01-2021 11:07-0400 Body height 182.[address] Laura Ordaz Work Phone: [facility] Work Phone: 12-01-2021 11:07-0400 Body weight 99.[address] Laura Ordaz Work Phone: [facility] Work Phone: 12-01-2021 11:03-0400 Body mass index (BMI) [Ratio] 29.8 kg/m2 Dr. Laura Ordaz Work Phone: [facility] Work Phone: 12-01-2021 11:03-0400 Heart rate 64 /min Dr. Laura Ordaz Work Phone: [facility] Work Phone: 12-01-2021 11:03-0400 SaO2% (BldA) [Mass fraction] 98 % Dr. Laura Ordaz Work Phone: [facility] Work Phone: 12-01-2021 11:03-0400 Body mass index (BMI) [Ratio] 29.8 kg/m2 Dr. Laura Ordaz Work Phone: [facility] Work Phone: 12-01-2021 11:03-0400 Heart rate 64 /min Dr. Laura Ordaz Work Phone: [facility] Work Phone: 12-01-2021 11:03-0400 SaO2% (BldA) [Mass fraction] 98 % Dr. Laura Ordaz Work Phone: [facility] Work Phone: 11-21-2021 14:37-0400 Body mass index (BMI) [Ratio] 29.8 kg/m2 Dr. Laura Ordaz Work Phone: [facility] Work Phone: 11-21-2021 14:37-0400 Body weight 99.[address] Laura Ordaz Work Phone: [facility] Work Phone: 11-21-2021 14:37-0400 Diastolic blood pressure 75 mm[Hg] Dr. Laura Ordaz Work Phone: [facility] Work Phone: 11-21-2021 14:37-0400 Heart rate 74 /min Dr. Laura Ordaz Work Phone: [facility] Work Phone: 11-21-2021 14:37-0400 Respiratory rate 16 /min Dr. Laura Ordaz Work Phone: [facility] Work Phone: 11-21-2021 14:37-0400 SaO2% (BldA) [Mass fraction] 98 % Dr. Laura Ordaz Work Phone: [facility] Work Phone: 11-21-2021 14:37-0400 Systolic blood pressure 120 mm[Hg] Dr. Laura Ordaz Work Phone: [facility] Work Phone: 11-21-2021 14:37-0400 Body height 182.[address] Laura Ordaz Work Phone: [facility] Work Phone: 11-21-2021 14:37-0400 Body mass index (BMI) [Ratio] 29.8 kg/m2 Dr. Laura Ordaz Work Phone: [facility] Work Phone: 11-21-2021 14:37-0400 Body weight 99.[address] Laura Ordaz Work Phone: [facility] Work Phone: 11-21-2021 14:37-0400 Diastolic blood pressure 75 mm[Hg] Dr. Laura Ordaz Work Phone: [facility] Work Phone: 11-21-2021 14:37-0400 Heart rate 74 /min Dr. Laura Ordaz Work Phone: [facility] Work Phone: 11-21-2021 14:37-0400 Respiratory rate 16 /min Dr. Laura Ordaz Work Phone: [facility] Work Phone: 11-21-2021 14:37-0400 SaO2% (BldA) [Mass fraction] 98 % Dr. Laura Ordaz Work Phone: [facility] Work Phone: 11-21-2021 14:37-0400 Systolic blood pressure 120 mm[Hg] Dr. Laura Ordaz Work Phone: [facility] Work Phone: 10-24-2021 20:16-0500 Body temperature 97.8 [degF] Dr. Laura Ordaz Work Phone: [facility] Work Phone: 10-24-2021 20:16-0500 Diastolic blood pressure 90 mm[Hg] Dr. Laura Ordaz Work Phone: [facility] Work Phone: 10-24-2021 20:16-0500 Heart rate 65 /min Dr. Laura Ordaz Work Phone: [facility] Work Phone: 10-24-2021 20:16-0500 Respiratory rate 18 /min Dr. Laura Ordaz Work Phone: [facility] Work Phone: 10-24-2021 20:16-0500 SaO2% (BldA) [Mass fraction] 97 % Dr. Laura Ordaz Work Phone: [facility] Work Phone: 10-24-2021 20:16-0500 Systolic blood pressure 128 mm[Hg] Dr. Laura Ordaz Work Phone: [facility] Work Phone: 10-24-2021 19:16-0500 Body temperature 97.8 [degF] Dr. Laura Ordaz Work Phone: [facility] Work Phone: 10-24-2021 19:16-0500 Diastolic blood pressure 90 mm[Hg] Dr. Laura Ordaz Work Phone: [facility] Work Phone: 10-24-2021 19:16-0500 Heart rate 65 /min Dr. Laura Ordaz Work Phone: [facility] Work Phone: 10-24-2021 19:16-0500 Respiratory rate 18 /min Dr. Laura Ordaz Work Phone: [facility] Work Phone: 10-24-2021 19:16-0500 SaO2% (BldA) [Mass fraction] 97 % Dr. Laura Ordaz Work Phone: [facility] Work Phone: 10-24-2021 19:16-0500 Systolic blood pressure 128 mm[Hg] Dr. Laura Ordaz Work Phone: [facility] Work Phone: 10-23-2021 09:46-0500 Body mass index (BMI) [Ratio] 31.2 kg/m2 Dr. Laura Ordaz Work Phone: [facility] Work Phone: 10-23-2021 09:46-0500 Body weight 104.[address] Laura Ordaz Work Phone: [facility] Work Phone: 10-23-2021 08:46-0500 Body mass index (BMI) [Ratio] 31.2 kg/m2 Dr. Laura Ordaz Work Phone: [facility] Work Phone: 10-23-2021 08:46-0500 Body weight 104.[address] Laura Ordaz Work Phone: [facility] Work Phone: Encounters Encounter Date Encounter Type Care Provider Facility Start: 05-23-2025 In-person encounter Nicanor Weaver MD Work Phone: [facility] Work Phone: Start: 05-23-2025 Visit out of hours Nicanor salguero MD Work Phone: [facility] Work Phone: Start: 01-10-2025 End: 01-10-[address] Laura Ordaz DO Work Phone: [facility] Work Phone: Start: 01-10-2025 End: 01-10-[address] Filippo Melendez MD -Laboratory Specimen Work Phone: Start: 01-10-2025 End: 01-10-2025 ambulatory [facility] Facility:[facility] Start: 05-19-2024 End: 05-19-2024 ambulatory [facility] Facility:[facility] Start: 05-19-2024 End: 05-19-2024 ambulatory [facility] Facility:[facility] Start: 01-06-2024 End: 01-06-2024 ambulatory [facility] Start: 12-06-2023 End: 12-07-2023 ambulatory TONE PHILLIPSKARTHIKEYAN [facility] Start: 12-06-2023 End: 12-06-2023 ambulatory [facility] Start: 12-06-2023 End: 12-06-2023 Subsequent hospital visit by physician Tone Freire MD Work Phone: [facility] Comment on above: 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; History of melanoma in situ; Family history of skin cancer Start: 10-29-2023 End: 10-30-2023 ambulatory [facility] Start: 10-29-2023 End: 10-29-2023 Subsequent hospital visit by physician Nicanor Maldonado MD Work Phone: [facility] Nuclear Medicine Comment on above: Malignant melanoma ( HCC) Start: 09-27-2023 End: 09-27-2023 ambulatory [facility] Work Phone: Start: 09-27-2023 End: 09-27-2023 Patient encounter procedure [facility]-Laboratory, Aayush Rahman [facility] Start: 02-09-2023 Non-patient / Non-visit Dr. Monica Ordaz Work Phone: [facility] Start: 02-09-2023 End: 02-09-2023 Admission to same day surgery center Dr. Laura Ordaz Work Phone: [facility]-Endoscopy Start: 02-09-2023 End: 02-09-[address] Laura Ordaz Work Phone: [facility] Work Phone: Start: 01-19-2023 ambulatory LAURA Zhou y:[facility] Start: 01-19-2023 End: 01-19-2023 Subsequent hospital visit by physician [facility] Work Phone: Molecular Imaging Comment on above: Malignant melanoma o f right upper limb, including shoulder [C43.61] Start: 12-28-2022 End: 12-28-[address] Laura Ordaz Work Phone: [facility] Start: 03-04-[address] Laura Ordaz Work Phone: [facility]-Cardiac Rehab Start: 03-04-2022 End: 03-04-[address] Laura Ordaz Work Phone: [facility]-Laboratory Start: 02-11-2022 End: 02-12-[address] Laura Ordaz Work Phone: [facility]Cardiac [facility] Start: 01-07-2022 End: 01-13-[address] Laura Ordaz Work Phone: [facility]Card[facility] Start: 12-12-2021 End: 12-13-[address] Laura Ordaz Work Phone: [facility]Card[facility] Start: 12-08-[address] Laura Ordaz Work Phone: [facility] Start: 12-01-2021 End: 12-01-[address] Laura Ordaz Work Phone: [facility] Start: 11-21-2021 End: 11-21-[address] Laura Ordaz Work Phone: [facility]-Laboratory Start: 11-21-2021 End: 11-21-[address] Laura Ordaz Work Phone: [facility] Start: 10-24-2021 Non-patient / Non-visit Dr. Monica Ordaz Work Phone: [facility] Start: 10-24-2021 Non-patient / Non-visit Dr. Monica Ordaz Work Phone: [facility] Inpatient Physicians Start: 10-23-2021 Non-patient / Non-visit Dr. Monica Ordaz Work Phone: [facility] Start: 10-23-2021 End: 10-24-2021 Evaluation and management of inpatient Dr. Laura Ordaz Work Phone: [facility]-Progressive Care Unit Start: 12-20-2014 [facility] Procedures Date Procedure Procedure Detail Performing Clinician Start: 05-23-2025 Blood pressure outsi de of normal parameters - follow-up documented Nicanor Maldonado MD Work Phone: Start: 05-23-2025 BMI outside of laura l parameters - no follow-up plan/reason not given Nicanor Maldonado MD Work Phone: Start: 05-23-2025 Current tobacco non- user cad cap copd pv dm Nicanor Maldonado MD Work Phone: Start: 05-23-2025 Documentation of cur rent medications Nicanor Maldonado MD Work Phone: Start: 05-23-2025 Pain assessment docu mented as negative - follow-up not required Nicanor Maldonado MD Work Phone: Start: 05-23-2025 Tangential biopsy sk in single lesion Nicanor Maldonado MD Work Phone: Start: 01-10-2025 Gram stain microscopy Matt Ordaz DO Work Phone: Start: 01-10-2025 End: 01-10-[address] Laura Ordaz DO Work Phone: Start: 10-29-2023 Lymphatics & lymph n odes imaging Nicanor Maldonado MD Work Phone: Start: 02-09-[address] Laura veloz Work Phone: Start: 01-19-2023 Lymphatics & lymph n odes imaging Nicanor Maldonado Work Phone: Start: 10-31-2021 History of coronary artery bypass grafting S/P CABG (coronary artery bypass graft) Nicanor Maldonado III, MD Work Phone: Start: 10-25-2021 Lipid 1996 panel - S ananya or Plasma Nicanor Maldonado III, MD Work Phone: Start: 10-24-2021 Cardiovascular stres s test using pharmacologic stress agent Dr. Laura Ordaz Work Phone: Start: 10-23-2021 Plain chest X-ray Dr. Ajay Ordaz Work Phone: History of coronary artery bypass grafting H/O coronary artery bypass surgery Dr. Laura Ordaz Work Phone: Comment on above: CABG X 5: COOK-LAD, SVG-D1, Sequential SVG-OM1 and LPLB, SVG- RPDA 10/27/2021 Plan of Treatment Date Care Activity Detail Author Start: 10-25-2026 Lipid panel Lipid Panel [place] Start: 01-06-2024 End: 01-06-2024 Professional / ancillary services management 01/06/2024 9:30 AM EDT Telehealth Ancillary Mitul - Yasmeen Davies [place], [place] [id number] Leticia [place] [address] Genetics - Yasmeen Start: 08-16-2023 Medicare Advantage A nnual Wellness Visit Medicare Advantage Annual Wellness Visit [facility] Start: 04-16-2023 COVID-19 (2022-2 4 season) COVID-19 (2022-24 season) [facility] Start: 04-16-2023 FLU (#1) FLU (#1) [facility] Start: 04-16-2023 Influenza vaccination [facility] [place] Start: 02-09-2023 Patient discharge [facility] Start: 10-25-2022 Diabetes mellitus screening Diabetes Screening [facility] Start: 08-16-2022 ADVANCE DIRECTIVE DISCUSSION ADVANCE DIRECTIVE DISCUSSION [facility] Start: 08-16-2022 DEPRESSION ASSESSMENT DEPRESSION ASS [facility] Start: 12-31-2021 Patient referral to dietitian [facility] Work Phone: Start: 12-01-2021 Patient referral to dietitian [facility] Work Phone: Start: 11-21-2021 Patient referral [facility] Work Phone: Start: 10-24-2021 Patient discharge [facility] Work Phone: Start: 10-24-2021 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 [facility] Work Phone: Start: 10-23-2021 Following clinical pathway protocol [facility] Work Phone: Start: 10-23-2021 Inhalation therapy procedure [facility] Work Phone: Start: 10-23-2021 End: 10-23-2021 [facility] Work Phone: Start: 10-23-2021 Admission procedure [facility] Work Phone: Start: 10-23-2021 Ambulation without limitation [facility] Work Phone: Start: 10-23-2021 Assessment of risk o f venous thromboembolism [facility] Work Phone: Start: 10-23-2021 Insertion of cathete r into peripheral vein [facility] Work Phone: Start: 10-23-2021 Measuring intake and output [facility] Work Phone: Start: 10-23-2021 Providing care accor ding to standard [facility] Work Phone: Start: 10-23-2021 Tobacco use cessatio n education [facility] Work Phone: Start: 2019 Pneumococcal Vaccine : 65+ Years (1 of 1 - PCV) Pneumococcal Vaccine: 65+ Years (1 of 1 - PCV) [facility] Start: 2019 PNEUMOCOCCAL: 65+ (1 - PCV) PNEUMOCOCCAL: 65+ (1 - PCV) [facility] Start: 2014 RSV Immunization age d 60 or older (1 - 1-dose 60+ series) RSV Immunization aged 60 or older (1 - 1-dose 60+ series) [facility] Start: 2009 PROSTATE CANCER SCRE ENING DISCUSSION PROSTATE CANCER SCREENING DISCUSSION [facility] Start: 2004 SHINGRIX VACCINE (1 of 2) GARLAND GRIX VACCINE (1 of 2) [facility] Start: 2004 Zoster Vaccines (1 of 2) Zoste r Vaccines (1 of 2) [facility] Start: 1999 COLOGUARD (FIT-DNA) COLOGUARD (FIT-D NA) [facility] Start: 1999 Colonoscopy COLONOSCOPY [facility] Start: 1999 COLORECTAL CANCER SCREENING COLORECTAL CANCER SCREENING [facility] Start: [address] COLONOGRAPHY [facility] Start: 1999 DIABETES SCREEN DIABETES SCREEN [facility] Start: 1999 FECAL OCCULT BLOOD FECAL OCCULT BLOO D [facility] Start: 1999 SIGMOIDOSCOPY SIGMOIDOSCOPY [facility] Start: 1989 LIPID SCREEN LIPID SCREEN [facility] Start: 1973 DTaP/Tdap/Td Vaccine s (1 - Tdap) DTaP/Tdap/Td Vaccines (1 - Tdap) [facility] Start: 1973 Urine microalbumin profile DTAP,TDAP,TD (1 - Tdap) [facility] Start: 1972 HEPATITIS C SCREENING HEPATITIS C SC [facility] Start: 1972 Hepatitis C screening Hepatitis C Sc [facility] Start: 1970 MenB (1 of 2 - MenB 2-Dose Series Bexsero) MenB (1 of 2 - MenB 2-Dose Series Bexsero) [facility] Start: 1967 Varicella (1 of 2 - 13+ 2-dose series) Varicella (1 of 2 - 13+ 2-dose series) [facility] Start: 1966 Depression Screening Depression Scre ening [facility] Start: 1961 Tetanus Diphtheria a nd Pertussis Vaccines (1 - Tdap) Tetanus Diphtheria and Pertussis Vaccines (1 - Tdap) [facility] Start: 1955 MMR (1 of 1 - Standa rd series) MMR (1 of 1 - Standard series) [facility] Start: 1954 COVID-19 VACCINE (#1) COVID-19 VACCI NE (#1) [facility] Start: 1954 Examination of skin Derm Melan manolo Skin Check [facility] Start: 1954 ABDOMINAL AORTIC ANE URYSM SCREENING ABDOMINAL AORTIC ANEURYSM SCREENING [facility] Start: 1954 Screening for malign ant neoplasm of colon [facility] End: 12-06-2023 Genetic Sendout: Custom Panel - Multi-Cancer panel with RNA analysis and PHOX2B [facility] Work Phone: Comment on above: 1 Occurrences starti ng 12/06/2023 until 12/06/[address] [facility] Work Phone: Payers Date Payer Category Payer Self-pay [id number] 2022 Medicare [id number] 2022 Private Health Insurance 101 [id number] 2007 Unknown [id number] 1955 Unknown [id number] [id number] 1954 Unknown [id number] [id number]. [id number] 1954 Unknown [id number] [id number]. [id number] Medicare [id number] Unknown [id number] Unknown [id number] [id number] Unknown [id number] [id number] Unknown [id number] [id number] Social History Date Type Detail Facility Start: 11-21-2021 End: 05-21-2023 Tobacco smoking status [facility] Unknown if ever smoked [facility] Start: 1955 Sex Assigned At Male W [facility] Start: 07-02-2010 End: 05-19-2024 Tobacco smoking status OKIS Ex-smoker [facility] Start: 08-16-1965 End: 08-16-1989 History of tobacco use Current smoker [facility] Start: 12-20-2014 End: 08-04-2022 Alcohol intake Current drinker of alcohol (finding) [facility] Start: 12-20-2014 End: 08-04-2022 Alcohol intake [facility] Start: 07-02-2010 Tobacco Comment Quit 10 years ago [facility] Start: 1955 Sex Assigned At Not on file [facility] [place] Start: 08-16-1965 End: 08-16-1989 History of tobacco use Cigarette Smoker [facility] Start: 08-04-2022 End: 05-23-2025 Tobacco use panel [facility] Start: 06-04-2022 Gender identity Identifies as male gender (finding) [facility] Start: 06-04-2022 Sexual orientation Heterosexual (fin ari) [facility] Medical Equipment Procedure Code Equipment Code Equipment Origin al Text Equipment Identifier Dates SEALANT,FLOSEAL HEMOSTATIC 5ML FDA Start: 02-06-2021 SEALANT,FLOSEAL HEMOSTATIC 5ML FDA Start: 02-06-2021 SEALANT,FLOSEAL HEMOSTATIC 5ML FDA Start: 02-06-2021 SEALANT,TISSEEL 2ML FDA Start : 02-06-2021 SEALANT,FLOSEAL HEMOSTATIC 5ML FDA Start: 02-06-2021 SEALANT,FLOSEAL HEMOSTATIC 5ML FDA Start: 02-06-2021 SEALANT,FLOSEAL HEMOSTATIC 5ML FDA Start: 02-06-2021 SEALANT,TISSEEL 2ML FDA Start : 02-06-2021 SEALANT,FLOSEAL HEMOSTATIC 5ML FDA Start: 02-06-2021 SEALANT,FLOSEAL HEMOSTATIC 5ML FDA Start: 02-06-2021 SEALANT,FLOSEAL HEMOSTATIC 5ML FDA Start: 02-06-2021 SEALANT,TISSEEL 2ML FDA Start : 02-06-2021 SEALANT,FLOSEAL HEMOSTATIC 5ML FDA Start: 02-06-2021 SEALANT,FLOSEAL HEMOSTATIC 5ML FDA Start: 02-06-2021 SEALANT,FLOSEAL HEMOSTATIC 5ML FDA Start: 02-06-2021 SEALANT,TISSEEL 2ML FDA Start : 02-06-2021 SEALANT,FLOSEAL HEMOSTATIC 5ML FDA Start: 02-06-2021 SEALANT,FLOSEAL HEMOSTATIC 5ML FDA Start: 02-06-2021 SEALANT,FLOSEAL HEMOSTATIC 5ML FDA Start: 02-06-2021 SEALANT,TISSEEL 2ML FDA Start : 02-06-2021 SEALANT,FLOSEAL HEMOSTATIC 5ML FDA Start: 02-06-2021 SEALANT,FLOSEAL HEMOSTATIC 5ML FDA Start: 02-06-2021 SEALANT,FLOSEAL HEMOSTATIC 5ML FDA Start: 02-06-2021 SEALANT,TISSEEL 2ML FDA Start : 02-06-2021 SEALANT,FLOSEAL HEMOSTATIC 5ML FDA Start: 02-06-2021 SEALANT,FLOSEAL HEMOSTATIC 5ML FDA Start: 02-06-2021 SEALANT,FLOSEAL HEMOSTATIC 5ML FDA Start: 02-06-2021 SEALANT,TISSEEL 2ML FDA Start : 02-06-2021 SEALANT,FLOSEAL HEMOSTATIC 5ML FDA Start: 02-06-2021 SEALANT,FLOSEAL HEMOSTATIC 5ML FDA Start: 02-06-2021 SEALANT,FLOSEAL HEMOSTATIC 5ML FDA Start: 02-06-2021 SEALANT,TISSEEL 2ML FDA Start : 02-06-2021 SEALANT,FLOSEAL HEMOSTATIC 5ML FDA Start: 02-06-2021 SEALANT,FLOSEAL HEMOSTATIC 5ML FDA Start: 02-06-2021 SEALANT,FLOSEAL HEMOSTATIC 5ML FDA Start: 02-06-2021 SEALANT,TISSEEL 2ML FDA Start : 02-06-2021 Goals Date Patient Goal Desired Activity /State Functional Status Date Assessment Result Facility 10-24-2021 Functional status Activity Ability Indepe ndent [facility] Work Phone: 10-24-2021 Functional status Patient Activity Up ad umair [facility] Work Phone: 10-23-2021 Functional status Assistive Devices None [facility] Work Phone: Mental Status Date Assessment Result Facility 02-09-2023 Cognitive function Voice/Name [facility] Work Phone: 10-24-2021 Cognitive function Voice/Name [facility] Work Phone: Clinical Notes 10-27-2021 to 02-09-2023 Note Date & Type Note Facility 02-09-2023 History and physi vivek note Note Date/Time February 09, 2023 8:29am [facility] Medical Records Department [address] [place] [address] History & Physical Exam 02/09/2329 MR#: [id number] Acct: [id number] Name: ERIC GONZALEZ Rep #:[id number] : 1955 67 From: Daryl Delgado MD PCP: Dr. Laura Ordaz, DO Status:[facility] Location: [place] [address] History and Physical Date of Admission: 02/09/23 Visit Reasons:?COLONOSCOPY Chief Complaint: colonoscopy Is patient in pain?: No Allergies acetaminophen [From Percocet] Adverse Reaction (Verified 12/28/22 09:32) Upset Stomachatorvastatin Adverse Reaction (Verified 12/28/22 09:32) myalgiasoxycodone [From Percocet] Adverse Reaction (Verified 12/28/22 09:32) Upset Stomach Medications irbesartan 300 mg tablet (Avapro) 300 mg PO DAILY 09/18/13 [History Confirmed 12/28/22] cholecalciferol (vitamin D3) 25 mcg (1,000 unit) capsule (Vitamin D3) 1,000 unitPO DAILY 12/17/17 [History Confirmed 12/28/22] aspirin 81 mg capsule 81 mg PO DAILY 10/23/21 [History Confirmed 12/28/22] rosuvastatin 20 mg tablet (Crestor) 20 mg PO DAILY 03/03/22 [History Confirmed 12/28/22] clopidogrel 75 mg tablet 75 mg PO DAILY #90 tabs 09/30/22 [Rx Confirmed 12/28/22] metoprolol tartrate 25 mg tablet 25 mg PO BID #180 tabs 09/30/22 [Rx Confirmed 12/28/22] PFSH Medical History? ACS (acute coronary syndrome) Alcohol abuse Arthritis Atherosclerotic heart disease of [place] coronary artery without angina pectoris Back pain Essential hypertension Former smoker Leg cramps Lumbar disc disease with radiculopathy Lumbar spondylosis Surgical History? H/O coronary artery bypass surgery History of back surgery History of left heart catheterization (10/24/21) History of lumbar laminectomy History of tonsillectomy Hx laparoscopic cholecystectomy Hx of arthroscopic knee surgery Hx of arthroscopic knee surgery Hx of colonoscopy Hx of repair of right rotator cuff Hx of total knee arthroplasty Family History?(Updated 03/23/22 @ 08:47 by Tarun Zhou NP, PATIENT'S LIBRARIAN-C) Brother CAD (coronary artery disease) ?? ? [place]- age 78Mother CVA (cerebral vascular accident)Father CAD (coronary artery disease) ?? ? CABG- 50-60s Social History? Smoking Status:? Former smoker alcohol intake:? current HPI HPI HPI: 67-year-old gentleman.? December 24, 2017 I assisted him with a colonoscopy.? There was mucosal congestion the ascending: A small sessile polyp in the descending with diverticular disease and a very tortuous colon.? The patient most recently October 27, 2021 had coronary bypass grafting x5.? Is on low-dose aspirin therapy and Plavix. The patient states that the noted diffuse coronary disease and were able to bypass what occurred.? Previously he had been having severe indigestion he thought he was taking multiple forms but actually that was cardiac disease.? He states that the indigestion symptoms that he had resolved with the surgical procedure. He is able to climb a flight of stairs.? He walks on a treadmill 4 days a week for 30 minutes.? He is having some temporary right knee problems.? No abdominal pain.? No bright red blood per rectum or melena.? No unexpected weight loss. He does demonstrate to me that he has diastases recti ROS General General: No weight change, appetite, fatigue, colon cancer, breast cancer or weakness HEENT HEENT: No difficulty swallowing, eye injury, eye surgery, swollen glands or hoarseness Endo Endocrine: No thyroid disease, diabetes mellitus, thyroid cancer, Hair loss, heat intolerance or cold intolerance Skin Skin: Yes rash and changing moles Musc Musculoskeletal: Yes back problems and arthritis; No rheumatoid arthritis, gout or joint pain Cardio Cardiovascular: Yes heart disease and high blood pressure; No murmur, pacemaker, atrial fibrillation, heart attack, heart stent, palpitations, shortness of breat with exertion or chest pain Psych Psychiatric: No depression, anxiety or hearing voices Resp Respiratory: No shortness of breath, No sleep apnea, No cough, No COPD, No asthma, No emphysema and No wheezing Gastro Gastrointestinal: No abdominal pain, No nausea or vomiting, Yes diarrhea, No constipation, No blood in stool, No acid reflux, No hemorrhoids, No ulcers, No gallbladder problem and No black,tarry stools Shivam Hematologic: Yes blood thinners, No blood disorders, No bleeding, No anemia and No blood clots Neuro Neurologic: No system reviewed and no additional complaints, except as documented, No as per HPI, No abnormal gait, No abnormal hearing, No abnormal movements, No abnormal speech, No behavioral changes, No burning sensations, No confusion, No convulsions, No disequilibrium, No dizziness, No localized weakness, No frequent falls, No headache(s), No lack of coordination, No loss ofvision, No memory loss, No numbness, No other visual disturbances, No radicular pain, No restless legs, No sensory deficit, No syncope, No tingling, No tremor(s), No weakness and No other Exam Const General: cooperative, healthy appearing, comfortable and no acute distress [facility] Head: normal to inspection Neck Neck: normal visual inspection Chest Chest palpation & inspection: normal inspection of the chest Resp Effort & Inspection: normal respiratory effort Cardio Rate: regular rate Rhythm: regular rhythm GI Palpation: soft and no hepatosplenomegaly Other: Diastases recti noted Skin General: no rashes or lesions noted Neuro General: patient alert, patient awake and patient oriented x3 Extrem Other: Nonpitting mild right lower extremity swelling as compared to the left Psych Appearance: grossly normal Assessment and Plan Assessment and Plan (1) Personal history of colonic polyps: ?Status:?Acute ?Plan: I recommended the patient a colonoscopy with possible biopsy or polypectomy as indicated.? He will remain on his low-dose aspirin.? I will have him hold his Plavix 2 days preprocedure.? I anticipate monitored anesthesia care.? I anticipate utilization of an adult scope as his previous procedure demonstrated tortuous bowel.? He has had an opportunity to ask and have questions answered.? We will schedule procedure at his discretion. Copy: Dr. Laura Ordaz and Dr. Flowers Alta Daryl Delgado M.D., F.A.C.S I have examined the patient and the H&P has been reviewed. There are no clinicalchanges since date of exam. Daryl Delgado M.D., F.A.C.S. 02/09/23 0829 <Electronically signed by Daryl Delgado MD> Cosigner Signature (if applicable): CC: Dr. Laura Ordaz DO; Dr. Daryl Delgado MD~ Signed [facility] Work Phone: [phone]) 175-206306-27-2023 Procedure [facility] 02-09-2023 Procedure [facility]03-18-2022 NoteDischarge Summary: Cardiothoracic Surgery Eric Gonzalez :1955 AGE: 66 y.o. ADMIT DATE: 10/24/2021 DISCHARGE DATE: 10/31/2021 DISCHARGING SURGEON: Riya Schwartz MD, Office Number: [phone] PRIMARY CARE PHYSICIAN: PROVIDER UNKNOWN, VISIT STATUS: Admission CODE STATUS: Full Code SURGERY: 10/27/21: CABG x5 (COOK-LAD, SVG-OM-LINDA, SVG- PDA, SVG-Diag) with Dr. Schwartz [facility] COURSE: 66 yo male PMH, HTN, HLD, former smoker, ETOH 42 beers per week. ?He presented from an outside facility where he presented with unstable angina non-specific EKG changes troponin levels equivocal. ?He was taken to the laborer high density press and found to have MVCAD, proximal CX, [...] cooperative. CONSULTS/TREATMENT TEAM: Primary Care Provider: PROVIDER UNKNOWN, Cardiology: Dr. Fraire (Cath); [place] CCM: Dr. [...] Your Medications These medications were sent to [facility] [address] - [phone] - [phone] [address] [facility] [address] ? clopidogrel 75 MG tablet ? furosemide [...] because serious side effects (more content not included)...[facility]03-14-2022 NoteDATE OF PROCEDURE: 10/27/2021 PREOPERATIVE DIAGNOSIS: Coronary artery disease POSTOPERATIVE DIAGNOSIS: [...] left lower extremity SURGEON: Riya Schwartz MD RUBBER OFF: Callie Fischer COMPLICATIONS: None intra-op CONDITION: Stable DESCRIPTION OF PROCEDURE: The patient was prepped and draped in the appropriate manner, having undergone general endotracheal anesthetic in addition to [place] catheter placement, arterial line, and catheter placement. [...] Normal EF, trivial MR, normal AV function Ryia Schwartz MD [facility]* Diagnosis Onset Date Resolution Status Hyperlipidemia chronic Alcohol abuse resolved H/O coronary artery bypass surgery acute Essential hypertension [facility] Work Phone: Evaluation note* Diagnosis Onset Date Resolution Status H/O coronary artery bypass surgery acute Essential hypertension [facility] Work Phone: Evaluation note* Diagnosis Onset Date Resolution Status Personal history of colonic polyps acute [facility] Work Phone: Evaluation noteNo assessment information available [facility] Work Phone: Evaluation note* Diagnosis Malignant melanoma (HCC) Melanoma of skin, site unspecified documented in this encounter [facility] note* Diagnosis 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 Malignant melanoma of skin of upper limb, including shoulder History of melanoma in situ Personal history of malignant melanoma of skin Family history of skin cancer Family history of other specified malignant neoplasm [facility]narrative)No reason for referral information available[facility] Work Phone: Summary Purpose Family History Relationship Condition Age at Onset Recorded Date/T krzysztof brother Coronary artery disease Unknown Relationship Condition Age at Onset Recorded Date/T krzysztof brother Coronary artery disease Unknown mother Cerebrovascular accident (CVA) Unknown father Coronary artery disease Unknown Family Member Condition Full Brother Vascular disease Father Mother Advance Directives Advance Directive Response Recorded Date/ Time Advance Directives Yes October 18 2:28pm Living Will Yes October 23, 2021 10:46am Power of Cylinder Inspector And Tester Yes October 23 10:46am Advance Directive Response Recorded Date/ Time Name of Medical Power of Cylinder Inspector And Tester Seda dewey October 23, 2021 10:46am Advance Directives Yes October 18 2:28pm Living Will Yes December 01, 2021 11:03am Power of Cylinder Inspector And Tester Yes December 01 11:03am Advance Directive Response Recorded Date/ Time Name of Medical Power of Cylinder Inspector And Tester Seda dewey October 23, 2021 10:46am Advance Directives on File No December 01, 2021 11:03am Advance Directives Yes October 18 2:28pm Living Will Yes December 01, 2021 11:03am Power of Cylinder Inspector And Tester Yes December 01 11:03am Advance Directive Response Recorded Date/ Time Advance Directives on File No December 01, 2021 11:03am Advance Directives Yes October 18 2:28pm Living Will Yes December 01, 2021 11:03am Power of Cylinder Inspector And Tester Yes December 01 11:03am Advance Directive Response Recorded Date/ Time Name of Medical Power of Cylinder Inspector And Tester February 04, 2023 10:24am Advance Directives Yes October 18 2:28pm Living Will Yes February 04, 2023 10:24am Power of Cylinder Inspector And Tester Yes February 04 10:24am Advance Directive Response Recorded Date/ Time Advance Directives Yes October 18 1:28pm Living Will No May 21 5:38am Power of Cylinder Inspector And Tester No May 21 023 5:38am Advance Directive Response Recorded Date/ Time Advance Directives Yes October 18 2:28pm Chief Complaint and Reason for Visit Chief Complaint CHEST PAIN CHEST PAIN CHEST PAIN CHEST PAIN CHEST PAIN 4WK FU FROM [facility] E-ORDER Reason for Visit Hyperlipidemia Alcohol abuse H/O coronary artery bypass surgery Essential hypertension Chief Complaint CHEST PAIN CHEST PAIN CHEST PAIN CHEST PAIN CHEST PAIN 4WK FU FROM [facility] E-ORDER S/P CABG S/P CABG Reason for Visit Hyperlipidemia Alcohol abuse H/O coronary artery bypass surgery Essential hypertension Chief Complaint CHEST PAIN CHEST PAIN CHEST PAIN CHEST PAIN [facility] S/P CABG S/P CABG Reason for Visit Hyperlipidemia Alcohol abuse H/O coronary artery bypass surgery Essential hypertension Chief Complaint CHEST PAIN CHEST PAIN CHEST PAIN CHEST PAIN CHE[facility]/P CABG S/P CABG S/P CABG S/P CABG Reason for Visit Hyperlipidemia Alcohol abuse H/O coronary artery bypass surgery Essential hypertension Chief Complaint [facility] CABG S/P CABG S/P CABG S/P CABG S/P CABG Reason for Visit H/O coronary artery bypass surgery Essential hypertension Chief Complaint COLONOSCOPY Reason for Visit Personal history of colonic polyps Reason for Referral Specialty Diagnoses / Procedures Referred By Lisbeth guallpa Referred To Contact Radiology Diagnoses Malignant melanoma (HCC) Procedures NM lymphoscintigram Nicanor Maldonado III, MD [address] [place] [address] Referral ID Status Reason Start Date Expiration Date Visits Re quested Visits Authorized [id number] Closed 10/27/2023 10/26/2024 1 1 Specialty Diagnoses / Procedures Referred By Lisbeth guallpa Referred To Contact Lab Diagnoses 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 History of melanoma in situ Family history of skin cancer Procedures Genetic Sendout: Custom Panel - Multi-Cancer panel with RNA analysis and PHOX2B Tone Freire MD [address] [place] [address], [address] [place] [address] Referral ID Status Reason Start Date Expiration Date V isits Requested Visits Authorized [id number] Open Specialty Services Required 12/06/2023 12/05/2024 1 1 Additional Source Comments (unrecognized sect ion and content) No Status Records FoundNo Status Records FoundNo Status Records FoundNo Status Records FoundNo Status Records FoundNo Status Records Found INFORMATION SOURCE (unrecogn ized section and content) DATE CREATED AUTHOR 11/25/2021 [facility] DATE CREATED AUTHOR AUTHOR'S ORGANIZ ATION 01/24/2023 [facility] DATE CREATED AUTHOR AUTHOR'S ORGANIZ ATION 01/24/2023 [facility] DATE CREATED AUTHOR AUTHOR'S ORGANIZ ATION 10/30/2023 [facility] DATE CREATED AUTHOR AUTHOR'S ORGANIZ ATION 01/08/2024 [facility] DATE CREATED AUTHOR AUTHOR'S ORGANIZ ATION 01/16/2025 [facility] Goals (unrecognized section and content) Goals may be documented in a n alternate sectionGoals may be documented in an alternate sectionGoals may be documented in an alternate sectionGoals may be documented in an alternate sectionGoals may be documented in an alternate sectionGoals may be documented in an alternate sectionGoals may be documented in an alternate section No Information Available Source Comments (unrecognize d section and content) In the event this informatio n is protected by the Federal Confidentiality of Alcohol and Drug Abuse Patient Records regulations: The Federal rules restrict any use of the information to criminally investigate or prosecute any alcohol or drug abuse patient.[facility] Care Teams (unrecognized sec tion and content) Mammography Supervisor Relationship Specialty Start Date End Date Laura Ordaz DO [address] [place] [address] PCP - General Family Medicine 01/13/23 Team Status: Active Member Role Status Dates Dr. Laura Ordaz DO Family Provider Active Dr. Laura Ordaz DO Primary Care Provider Active Team Status: Inactive Member Role Status Dates Dr. Laura Ordaz DO Primary Care Provider, Referrin g Provider Active Dr. Daryl Delgado MD Attending Provider Active Team Status: Active Member Role Status Dates Dr. Laura Ordaz DO Primary Care Provider Active Dr. Daryl Delgado MD Attending Provid er, Referring Provider, Other Provider Active Team Status: Inactive Member Role Status Dates Dr. Laura Ordaz DO Primary Care Provider Active Dr. Daryl Delgado MD Attending Provider, Referring Provider Active Team Status: Inactive Member Role Status Dates Dr. Laura Ordaz DO Primary Care Provider, Attendin g Provider Active Mammography Supervisor Relationship Specialty Start Date End Date Laura Ordaz [address] [place] [id number] PCP - General 10/24/21 Mammography Supervisor Relationship Specialty Start Date End Date Laura Ordaz DO [address] [place] [address] PCP - General 12/06/23 Nabeel Zaldivar MD [address] [phone] Dermatology 10/25/23 [place] [address] Genetic Counselor Genetics 12/06/23 Team Status: Inactive Member Role Status Dates Dr. Laura Ordaz DO Primary Care Provider Active Start: January 10, 2025 End: January 10, 2025 Dr. Filippo Melendez MD Attending Provider Active Start: January 10, 2025 End: January 10, 2025 Dr. Filippo Melendez MD Referring Provider Active Start: January 10, 2025 End: January 10, 2025 Reason for Visit (unrecogniz ed section and content) . post wide local excision o f right forearm malignant melanoma with intermediate closure and right axillary sentinel node biopsy on 10/29/2023 and Wide local excision of right upper arm malignant melanoma measuring 4 x 4 cm with local tissue rearrangement using a rhomboid flap measuring approximately 6 x 4 cm. 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 [employer] provides no warranty or guarantee of the accuracy or completeness of information in this document.
--- NOTE | 2025-07-31 09:03 | STRESSREP ---
Stress Test Report Exercise myocardial perfusion stress test. 70-year-old man with a history of cad. Stress protocol: Resting EKG demonstrates normal sinus rhythm with a rate of 53 bpm resting blood pressure is 150/86 mmHg. The patient exercised according to the regular Kade protocol for a total duration of 6 minutes attaining a maximum heart rate of 139 bpm which was 93% of maximum predicted heart rate; the maximum workload was 7 metabolic equivalents. At rest there were no ST or T wave changes noted to suggest ischemia and at peak exercise upsloping ST changes only were noted which did not meet the criteria for ischemia. No clinical angina was noted the test was terminated due to the target heart rate being achieved/fatigue. The peak blood pressure was 198/88 mmHg. Rate-pressure product was 23,000. Myocardial perfusion protocol. 15 mCi of technetium 99m sestamibi was injected at rest. The patient exercised according to regular Kade protocol for total duration of 6minutes and at peak exercise 44.9 mCi of technetium 99m sestamibi was injected stress images were obtained stress and rest images were reconstructed in comparing the short axis vertical long and horizontal long axis. Gated images were also obtained. Perfusion SPECT analysis: Review of the stress images demonstrate normal uptake of tracer noted in all areas of the myocardium. The resting images similarly demonstrate normal uptake of tracer noted in all areas of the myocardium. No areas of reversibility are noted to suggest ischemia no previous infarct was noted. Gated SPECT analysis: The gated ejection fraction is 66%. Conclusion: Normal exercise myocardial perfusion stress test at a moderate workload.
== END | disposition home or self-care (01) ==
LOC: CVS 07:24
PROVIDERS: PCP Family Medicine; Referring Provider Internal Medicine Cardiovascular Disease; Visit Provider Internal Medicine Cardiovascular Disease
DX: I25.10 Atherosclerotic heart disease of native coronary artery without angina pectoris (principal); I10 Essential (primary) hypertension; Z95.1 Presence of aortocoronary bypass graft
CPT/HCPCS: 78452; 93017; 93306; A9500; A4216